=== PATIENT | male | born 1965 | race African-American/Black ===

== ENCOUNTER 2020-02-29 17:05 | Inpatient (IN) | payer OTHER, SELFPAY ==
--- NOTE | ~2020-02-29 | CT_ITS ---
EXAMINATION: CT abdomen pelvis w con EXAM DATE: 02/29/2020 18:23 INDICATION: Fever, left lower quadrant abdominal pain, nausea and diarrhea. TECHNIQUE: Spiral CT of the abdomen and pelvis was performed following intravenous injection of 100 m L Omnipaque 350. Axial, coronal and sagittal images were reviewed. The dose-length product (DLP) fo r this examination was 507.30 mGy-cm. The exposure was tailored according to patient size (auto mA e xposure control), and iterative reconstruction (ASIR) was used as additional dose reduction technique . There is no prior study for comparison. FINDINGS: There is moderate sigmoid diverticulosis. There is extensive perisigmoid inflammation and m oderate wall thickening. Also tiny foci of perisigmoid extraluminal gas (finding has been indicated o n axial image 140), microperforation. There is no organized abscess or gross free intraperitoneal gas . There is a flash filling hemangioma in the liver dome measuring 1.2 cm. Spleen, adrenal glands, pancr eas are unremarkable. Mildly distended but otherwise unremarkable gallbladder. There is no common bi le duct dilation. Portal and splenic veins are patent. Kidneys enhance symmetrically. There is no hydronephrosis. There is mild prostatomegaly. Diffuse bladder wall thickening and adjacent fat stra nding, could be reactive from the diverticulitis but check urinalysis to evaluate possibility of cyst itis. There is no retroperitoneal or pelvic lymphadenopathy. The appendix is normal. The stomach and small bowel are unremarkable. There is expected amount of c olonic stool. The heart is normal in size. There are no pericardial or pleural effusions. The lung bases are unremarkable. There are no osteoblastic or osteolytic lesions identified. IMPRESSION: 1. Acute sigmoid diverticulitis with microperforation. No abscess. Follow-up evaluation will be guicho cated to exclude underlying adenocarcinoma. 2. Pericystic inflammation, could be reactive or cystitis. Correlate with urinalysis. Reviewed, dictated and finalized at location A. IMPRESSION: 1. Acute sigmoid diverticulitis with microperforation. No abscess. Follow-up e valuation will be indicated to exclude underlying adenocarcinoma. 2. Pericystic inflammation, could be reactive or cystitis. Correlate with urin alysis.
--- NOTE | ~2020-02-29 | CT_ITS ---
EXAMINATION: CT abdomen pelvis w con DATE: 03/04/2020 14:06 INDICATION: Diverticulitis TECHNIQUE: Computed tomography (CT) of the abdomen and pelvis was performed with 100 mL Omnipaque-350 intravenous contrast. Automated exposure control and iterative reconstruction technique were employe d. The dose-length product was 594.12 mGy-cm. COMPARISON: 02/29/2020 FINDINGS: Very small bilateral posterior layering pleural effusions with mild dependent passive atelectasis in the lower lobes. Heart size is normal. No pericardial effusion. Liver, gallbladder, spleen, pancreas, bilateral adrenal glands and right kidney are normal. 2 cm left renal cyst. Considering is prominent wall thickening and from trace stranding surrounding the sigmoid colon where there are multiple dive rticula consistent with diverticulitis. There is some free intraperitoneal gas below the right hemidi aphragm as well as a large pocket of free intraperitoneal gas within the folds of the small bowel mes entery in the central abdomen. There are couple small gas and fluid collections in the right hemipelv is without a well-defined organized peripheral wall. The larger and more caudal measuring 3.4 x 1.9 c m and the smaller more cephalad collection measuring 2.9 x 1.5 cm. No bowel obstruction. Normal appen jaymie. No pathologically enlarged abdominal or pelvic lymphadenopathy. Moderate bilateral hip osteoarth ritis. IMPRESSION: 1. Perforated sigmoid diverticulitis with free intraperitoneal gas as well as a couple small gas and fluid collections without a well-defined organizing peterson in the right hemipelvis but concerning for progression towards abscesses. Reviewed, dictated and finalized at location A.
--- NOTE | ~2020-02-29 | XR_ITS ---
XR abdomen/kub 1V DATE: 03/01/2020 13:19 INDICATION: Abdominal pain. Fever. Diverticulitis. TECHNIQUE: AP projection, 2 views COMPARISON: 02/29/2020 CT abdomen pelvis FINDINGS: No evidence of bowel obstruction. The psoas shadows are intact. No visceromegaly. Included skeletal structures are unremarkable. IMPRESSION: Nonspecific abdomen Reviewed, dictated and finalized at Location [facility]. Reviewed, dictated and finalized at location A. IMPRESSION: Nonspecific abdomen
[2020-02-29 17:00] VITALS: BP 179/95; PULSE 86; RESP 17; TEMP 38.9; O2SAT 100
[2020-02-29 17:42] LABS: Basophils Percent Auto 0.2 % (0.2-1.2); Hematocrit 57.8 % (42.0-52.0); Hemoglobin 18.5 g/dL (14.0-18.0); Immature Granulocyte Absolute 0.07 K/mm3 (0.00-0.031); Immature Granulocyte Percent A 0.4 % (0-0.5); Lymphocytes Absolute Auto 0.44 K/mm3 (0.9-3.2); Lymphocytes Percent Auto 2.4 % (18.3-44.2); Mean Corpuscular Hemoglobin 29.7 pg (26-34); Mean Corpuscular Volume 92.8 fl (80-100); Mean Platelet Volume 11.4 fl (7.4-10.4); Monocytes Absolute Auto 0.3 K/mm3 (0.1-0.6); Monocytes Percent Auto 1.6 % (2.6-8.5); Neutrophils Absolute Auto 17.8 K/mm3 (1.3-6.7); Neutrophils Percent Auto 95.4 % (45.5-73.1); Platelet Count Result 183 k/mm3 (150-375); Red Blood Count 6.23 M/mm3 (4.6-6.20); Red Cell Distribution Width 13.3 % (11.5-14.5); White Blood Count 18.6 K/mm3 (4.5-10.0)
[2020-02-29 17:55] LABS: Add Urine Microscopic? YES; Alanine Aminotransferase 41 U/L (4-50); Alkaline Phosphatase 54 U/L (38-126); Appearance Urine Clear (Clear); Aspartate Amino Transferase 41 U/L (17-59); Bilirubin Urine Negative (Negative); Bilirubin,Total 1.1 mg/dL (0.2-1.3); Blood Urea Nitrogen 19 mg/dL (9-20); Blood Urine Negative (Negative); Calcium 9.7 mg/dL (8.4-10.2); Carbon Dioxide 30 mmol/L (22-30); Chloride 98 mmol/L (98-107); Color Urine Yellow (Yellow); Estimated CRCL calculation 59 ml/min; Estimated Glomerular Filt Rate > 60; Glucose 120 mg/dL (75-110); Glucose Urine UA Negative (Negative); Ketones Urine Trace mg/dL (Negative); Leukocyte Esterase Ur Negative LEU/UL (Negative); Lipase 99 U/L (23-300); Mucus Urine Heavy /lpf; Nitrate Urine Negative (Negative); Protein Urine 2+ mg/dL (Negative); RBC Urine 0-2 /hpf (0-2); Sodium 138 mmol/L (137-145); WBC Urine 0-3 /hpf
--- NOTE | 2020-02-29 18:08 | ED.ABDPAIN ---
HPI - Abdominal Pain General Chief Complaint: Abdominal Pain Stated Complaint: Abd Pain Time Seen by Provider: 02/29/20 18:01 History of Present Illness HPI narrative: Patient presents with his partner, for abdominal pain since 3 AM today. He is never had anything like this before. It is 10 out of 10. Started left lower quadrant goes across the pelvis. Some nausea, but no vomiting. Decreased stool, but no blood in the stool. Fever 102. He had his colonoscopy a year and a half ago and it came back normal, there was no diverticuli noted. He has had numerous orthopedic surgeries but no abdominal surgery. Related Data Home Medications Medication Instructions Recorded Confirmed celecoxib [Celebrex] mg 02/29/20 cetirizine [Zyrtec] 10 mg PO DAILY 02/29/20 felodipine 10 mg PO DAILY 02/29/20 montelukast [Singulair] 10 mg PO HS 02/29/20 multivit with min-folic acid mg PO 02/29/20 [Adult One Daily Multivitamin] tramadol [Ultram] 50 mg PO Q6H PRN MDD 1/2 pill - 10 02/29/20 mg Allergies Allergy/AdvReac Type Severity Reaction Status Date / Time No Known Allergies Allergy Verified 02/29/20 17:06 Review of Systems Review of Systems: Narrative: CONSTITUTIONAL: Denies sweats. EYES: Denies visual changes, redness, or discharge. ENT: Denies rhinorrhea, congestion, sore throat, or otalgia. CARDIOVASCULAR: Denies chest pain, palpitations, or edema. RESPIRATORY: Denies cough or dyspnea. GASTROINTESTINAL: Denies vomiting, or diarrhea. GENITOURINARY: Denies dysuria or hematuria. SKIN: Denies rash or itching. MUSCULOSKELETAL: Denies back pain, joint pain, or myalgia. NEUROLOGIC: Denies headache, numbness, or weakness. PSYCHIATRIC: Denies anxiety or depression. [facility] Surgical History Surgical History History of sinus surgery Family History Family History (Updated 01/24/17 @ 23:56 by DOCTOR UNKNOWN) Father Family history of lung cancer, Onset Age: 79 Patient's father is Mother Hypertension Family history of diabetes mellitus in first degree relative Social History Social History Smoking status: Former smoker Second hand tobacco smoke exposure: No Smoking end date: 10/20/90 Alcohol intake: current Gender identity (if verbalized by the patient): Male Exam Narrative: Exam Narrative: GENERAL: Well-appearing, well-nourished, and in no acute distress. HEAD: Normocephalic, atraumatic. EYES: PERRLA and EOMI. ENT: Nares clear, no rhinorrhea or epistaxis. Mucous membranes moist. NECK: Supple. CHEST: Clear to auscultation. No respiratory distress. HEART: Regular rate and rhythm. No murmur heard. Normal peripheral pulses. ABDOMEN: Soft, nondistended, normal active bowel sounds. Tenderness throughout. EXTREMITIES: Normal range of motion. No edema. SKIN: Warm, dry, no rash. NEURO: No focal deficits. Alert and oriented x3. PSYCH: Normal mood and affect. Const: General: no acute distress Orientation/consciousness: patient oriented x3 Course Reevaluation(s) Reevaluation #1: Went in the room to explain to the patient and his girlfriend about the diverticulitis. He is sound asleep from the Dilaudid, so I explained to her. Hopefully the antibiotics will heal it without surgery, but if there is any advancement of disease or rupture, a surgeon would be involved. She understands that she cannot visit because of COVID. Date: 02/29/20 Time: 19:47 Consultations Consultation #1: Call the general surgeon for a consult.Dr. Richter returned the call and will consult. Date: 02/29/20 Time: 19:09 Consultation #2: Call the hospitalist for admission. Dr. Perez called back and except. Date: 02/29/20 Time: 19:09 Vital Signs Vital signs: Vital Signs Temperature 102.0 F H 02/29/20 17:00 Pulse Rate 86 02/29/20 17:00 Respiratory Rate 17 02/29/20 17:00 Blood Pressure 179/95 H 02/29/20 17:00 Pulse Oximetry 100 02/29/20 17:00
[2020-02-29] MEDS: SODIUM CHLORIDE 0.9% IV 1,000 ML 999 ML IV CONT (18:29)
[2020-02-29 18:30] VITALS: BP 169/89; PULSE 79; RESP 19; O2SAT 98
[2020-02-29] MEDS: HYDROMORPHONE HCL 1 MG/ML INJ IV PUSH ×2 (18:30→21:30)
[2020-02-29 19:10] VITALS: BP 168/79; PULSE 97; RESP 18; O2SAT 97
--- NOTE | 2020-02-29 20:17 | PM.IMHP ---
H&P: HPI History of Present Illness Chief complaint: diverticulosis Narrative: This is a pleasant 54 year old male with known history of HTN who presented to the hospital with a complaint of diffuse abdominal pain that started since early this morning around 3 am. He reports that he last ate some nuts last night. Associated symptoms include fever to 102 degrees F, nausea, but no vomiting. He has not had any diarrhea or bloody stools. The patient was evaluated in the ER and found to have acute diverticulitis on CT abd/pelvis. This is the first time he has ever had diverticulitis. He denies any previous abdominal surgeries. His last colonoscopy was 1.5 years ago and did not demonstrate diverticular disease. Currently the patient's abdominal pain is improved w/ IV narcotic medications. ER provider has given the patient IV zosyn and consulted General Surgery. He has no other complaints. Review of Systems Review of Systems: All systems reviewed & are unremarkable except as noted in HPI and below PMFSH Past Medical History Medical History HTN (hypertension) with goal to be determined Surgical History Surgical History History of sinus surgery Family History Family History Father Family history of lung cancer, Onset Age: 79 Patient's father is Mother Family history of diabetes mellitus in first degree relative Hypertension Cerebrovascular accident Sibling Asthma Social History Social History Smoking packs per day: 3 Smoking cigarettes per day: 60.0 Years smoked: 10 Smoking pack-years: 30.00 Smoking status: Former smoker Second hand tobacco smoke exposure: Yes Smoking end date: 10/20/90 Alcohol intake: current Drinks per week: 28 Alcohol use details: Every other day+ Substance use: current Substance use type: marijuana Other substance usage details: uses marijuana once a week Gender identity (if verbalized by the patient): Male Spiritual care concerns: No Meds Home Medications and Allergies Home Medications Medication Instructions Recorded Confirmed Type albuterol sulfate 2 puff INHALATION DAILY PRN 02/29/20 02/29/20 History celecoxib [Celebrex] 200 mg PO HS 02/29/20 02/29/20 History cetirizine [Zyrtec] 10 mg PO HS 02/29/20 02/29/20 History felodipine 10 mg PO DAILY 02/29/20 02/29/20 History montelukast [Singulair] 10 mg PO HS 02/29/20 02/29/20 History multivit with min-folic acid 0.4 mg PO DAILY 02/29/20 02/29/20 History [Adult One Daily Multivitamin] tramadol [Ultram] 25 mg PO HS PRN 02/29/20 02/29/20 History Allergies Allergy/AdvReac Type Severity Reaction Status Date / Time No Known Allergies Allergy Verified 02/29/20 17:06 Vital Signs Vital Signs - 24 hr 02/29/20 17:00 02/29/20 18:30 02/29/20 19:10 Temperature 38.9 C H Pulse Rate 86 79 97 Respiratory Rate 17 19 18 Blood Pressure 179/95 H 169/89 H 168/79 H Pulse Oximetry 100 98 97 Exam Const: General: cooperative, alert, awake, acute distress moderate, ill appearing and other (Febrile to touch++ ) Nutritional Appearance: well nourished Orientation/consciousness: patient oriented x3 HENMT: Head: normal to inspection General nose exam: Normal external nose present Face and sinus: normal facial exam Mouth: Yes Normal oral and palatal mucosa present and Yes oropharynx normal Eyes: Pupils: Equal, round and reactive pupils present EOM: EOMs intact bilaterally Neck: Neck: supple and no JVD Thyroid: thyroid normal Lymphatic: lymphadenopathy not noted Resp: Effort & Inspection: normal respiratory effort Auscultation: clear to auscultation bilaterally Cardio: Rate: regular rate Rhythm: regular rhythm Heart sounds: no murmurs GI: Inspection: normal t
[2020-02-29 20:42] VITALS: BP 118/71; PULSE 85; RESP 18; O2SAT 95
[2020-02-29 20:55] VITALS: BP 151/76; PULSE 86; RESP 22; TEMP 37.4; O2SAT 98
--- NOTE | 2020-02-29 21:00 | ADMGEN ---
This patient, Cate Carrington, was admitted to Medical Room 340-01. Patient/family oriented to hospital policies and general routines including ID bracelet, bed and alarms, visiting hours, pain management, procedures, bathroom and other care routines, personal items, smoking policy, room service/diet, and visiting hours. Valuables list has been completed. Information on how to activate the Rapid Response Team has been discussed. Patient/Family are encouraged to report perceived risks to care and to ask questions if they do not understand what they are told or what they should do.
[2020-02-29] MEDS: DEXTROSE 5%/0.9% SOD CHL 1,000 ML 100 ML IV CONT (21:12)
[2020-02-29 21:42] VITALS: BMI 27.8
--- NOTE | 2020-02-29 22:43 | PCRCNOTE ---
02-29-2020 @ 22:38 Pt asked if he brought in his own cpap. PT stated he didn't and he didn't want one. PT said it puts too much air in his stomach and don't feel good.
[2020-03-01 00:43] VITALS: BP 137/74; PULSE 85; RESP 18; TEMP 36.8; O2SAT 95
[2020-03-01] MEDS: HYDROMORPHONE HCL 1 MG/ML INJ IV PUSH ×8 (01:19→23:06)
[2020-03-01 05:10] VITALS: BP 145/78; PULSE 84; RESP 16; TEMP 36.2; O2SAT 93
[2020-03-01 05:28] LABS: Blood Urea Nitrogen 16 mg/dL (9-20); Calcium 8.4 mg/dL (8.4-10.2); Carbon Dioxide 27 mmol/L (22-30); Chloride 103 mmol/L (98-107); Estimated CRCL calculation 64 ml/min; Estimated Glomerular Filt Rate > 60; Glucose 128 mg/dL (75-110); Sodium 136 mmol/L (137-145)
[2020-03-01 05:39] LABS: Basophils Absolute Auto 0.1 K/mm3 (0.0-0.1); Basophils Percent Auto 0.2 % (0.2-1.2); Hematocrit 51.1 % (42.0-52.0); Hemoglobin 16.6 g/dL (14.0-18.0); Immature Granulocyte Absolute 0.17 K/mm3 (0.00-0.031); Immature Granulocyte Percent A 0.8 % (0-0.5); Lymphocytes Absolute Auto 1.11 K/mm3 (0.9-3.2); Lymphocytes Percent Auto 5.2 % (18.3-44.2); Mean Corpuscular HGB Conc 32.5 g/dl (32-36); Mean Corpuscular Hemoglobin 29.3 pg (26-34); Mean Corpuscular Volume 90.3 fl (80-100); Mean Platelet Volume 11.4 fl (7.4-10.4); Monocytes Absolute Auto 0.5 K/mm3 (0.1-0.6); Monocytes Percent Auto 2.3 % (2.6-8.5); Neutrophils Absolute Auto 19.5 K/mm3 (1.3-6.7); Neutrophils Percent Auto 91.5 % (45.5-73.1); Platelet Count Result 179 k/mm3 (150-375); Red Blood Count 5.66 M/mm3 (4.6-6.20); Red Cell Distribution Width 12.9 % (11.5-14.5); White Blood Count 21.4 K/mm3 (4.5-10.0)
[2020-03-01] MEDS: DEXTROSE 5%/0.9% SOD CHL 1,000 ML 100 ML IV CONT ×2 (08:08→18:22)
[2020-03-01] MEDS: HYDROMORPHONE HCL 1 MG/ML INJ 0.5 MG IV PUSH (09:03)
--- NOTE | 2020-03-01 12:08 | PM.CNGS ---
Assessment and Plan Assessment and plan (1) Diverticulitis of intestine with perforation without abscess: Code(s): K57.80 - Diverticulitis of intestine, part unspecified, with perforation and abscess without bleeding Status: Acute Assessment and Plan: CT scan reviewed and discussed with the patient in detail. He has evidence of acute sigmoid diverticulitis with microperforation. This is his first episode of diverticulitis. During my evaluation, the patient is still having a significant amount of abdominal pain and his white blood cell count has gone up to 21,000 today. I adjusted his pain medication to hopefully help with pain control and will order a stat KUB. Would continue the IV antibiotics, IV fluids, and bowel rest. I discussed the disease process with the patient and the treatment plan at this point. I discussed with the patient that if he develops more intra-abdominal free air or continues to worsen with current treatment, then he may require more urgent surgical intervention, which would include a colectomy with a higher probability of an ostomy. If he improves with current treatment, then we would continue to try and treat him conservatively to allow this acute episode to resolve. We will continue to follow the patient with serial abdominal exams, labs, and imaging as needed. Thank you for allowing me to see the patient in consultation and we will continue to follow along with you. (2) HTN (hypertension) with goal to be determined: Code(s): I10 - Essential (primary) hypertension Status: Chronic Additional Plan Discussed the patient's case and formulated the plan of care with Dr. Richter. History of Present Illness Consult details Consult date: 03/01/20 Reason for consult: other (Acute sigmiod diverticulitis with microperforation) Requesting physician: Ce Garay MD Narrative: This is a 54-year-old male with a history of hypertension, who presented the emergency department with complaints of abdominal pain and fever. The patient reports he woke up from sleep around 3:00 am yesterday morning with generalized abdominal pain. He does report his pain was mostly located in the lower abdomen but feels there is pain all over. He reports the pain was persistent and unrelenting through the day. Also reports a subjective fever. Due to the persistent pain, he decided to present to the emergency department for further evaluation. CT scan of the abdomen and pelvis showed acute sigmoid diverticulitis with microperforation and no evidence of an abscess. Labs in the ED showed a white blood cell count of 18,600. He was febrile last night around 1700 but afebrile since. The patient was admitted to the Hospitalist service and started on IV antibiotics, IV fluids, analgesics, and made NPO. Our service was consulted for the findings of diverticulitis with perforation. The patient is now being seen on the medical floor. He reports having persistent abdominal pain since admission and rating it at an 8/10 on a pain scale at this time. Reports having intermittent nausea that he associates with hunger, but no vomiting. Reports he has been constipated since Friday, when he had a small loose bowel movement. Denies any bloody or black stools. Reports passing gas yesterday, but denies any flatus today. No other complaints at this time. Denies a history of diverticulitis. Reports having a Colonoscopy by Dr. Peterson in 2017 with findings of benign colon polyps and internal hemorrhoids. Reports a history of colorectal cancer in his mother. Review of Systems Constitutional: Constitutional: Reports as per HPI, Reports chills, Denies excessive sweating, Denies fatigue, Reports fever(s), Denies headache(s) and Denies weakness Eyes: Eyes: Denies change in vision and Denies loss of vision ENT: Reports Normal hearing present, Denies dizziness and Denies headache(s) Cardiovascular: Cardiovascular: Denies chest pain, Denies syncope, Denies leg luh
--- NOTE | 2020-03-01 12:20 | PM.IMPN ---
Progress Note: A&P Assessment and Plan (1) Diverticulitis: Code(s): K57.92 - Diverticulitis of intestine, part unspecified, without perforation or abscess without bleeding Status: Acute Assessment and Plan: -----CT images and symptoms are consistent with diverticulitis. The patient has had fevers and chills so I will go ahead and put in for some blood cultures although he has already had IV antibiotics. The patient denies any history of constipation but did have some diverticular disease seen on a colonoscopy in the past. Will continue Zosyn at this time. CT shows micro perforation. Surgery on board. Appreciate their additional recommendations. For now, continue NPO status. (2) HTN (hypertension) with goal to be determined: Code(s): I10 - Essential (primary) hypertension Status: Chronic Assessment and Plan: -----last blood pressure 145/78. Likely elevated due to pain. I do not see any history of blood pressure medications. I'll ask him about this. For now will do p.r.n. hydralazine for systolic greater than 175. (3) Leukocytosis: Qualifiers: Leukocytosis type: unspecified Qualified Code(s): D72.829 - Elevated white blood cell count, unspecified Code(s): D72.829 - Elevated white blood cell count, unspecified Status: Acute Assessment and Plan: -----d/t above. Will monitor daily. Additional Plan Date of service was 02/29/2020 at 7:30 pm. Time Spent With Patient Time with patient: 25 - 35 minutes Subjective Date/time seen: 03/01/20 12:20 Interval history: Pt is a 54-year-old male here for diverticulitis. Patient was seen today and states his pain is not getting any better. He says that is currently 8/10 pain in the lower quadrants of the abdomen. He has had some nausea but is overall doing okay. He also mentions that he has had chills on and off. He denies vomiting, diarrhea, constipation, chest pain or shortness of breath. Review of Systems Review of Systems: All systems reviewed & are unremarkable except as noted in HPI and below Exam Narrative: Exam Narrative: General: Well developed well nourished patient resting comfortably in bed in no acute distress HEENT: normocephalic Neck: supple Neuro: Alert and oriented x4 CV:RRR Resp:CTA Abd: Soft, partially distended. Significant pain especially in the right lower quadrant. Positive bowel sounds Extremities: No swelling, erythema, or pain to palpation. Objective Data Vital Signs Vital Signs: Vital Signs - 24 hr 02/29/20 17:00 02/29/20 18:30 02/29/20 19:10 Temperature 102.0 F H Pulse Rate 86 79 97 Respiratory Rate 17 19 18 Blood Pressure 179/95 H 169/89 H 168/79 H Pulse Oximetry 100 98 97 02/29/20 20:42 02/29/20 20:55 03/01/20 00:43 Temperature 99.4 F 98.3 F Pulse Rate 85 86 85 Respiratory Rate 18 22 H 18 Blood Pressure 118/71 151/76 H 137/74 Pulse Oximetry 95 98 95 03/01/20 05:10 Temperature 97.2 F L Pulse Rate 84 Respiratory Rate 16 Blood Pressure 145/78 H Pulse Oximetry 93 Intake/Output Intake/Output: Intake & Output 02/27/20 02/28/20 02/29/20 03/01/20 23:59 23:59 23:59 23:59 Intake Total 1100 1150 Output Total 1000 Balance 1100 150 Meds/Results Medications: Active Medications Generic Name Dose Route Start Last Admin Trade Name Freq PRN Reason Stop Dose Admin Albuterol 2 puff 03/01/20 12:20 Proventil Hfa INHALATION DAILY PRN Shortness Of Breath Or Wheezing Hydromorphone HCl 0.5 mg 03/01/20 09:17 Dilaudid Inj IV PUSH Q2H PRN Pain Rated 4-6 Hydromorphone HCl 1 mg 03/01/20 09:17 03/01/20 12:13 Dilaudid Inj IV PUSH 1 mg Q2H PRN Administration Pain Rated 7-10 Dextrose/Sodium Chloride 1,000 mls @ 100 mls/hr 02/29/20 19:25 03/01/20 08:08 Dextrose 5% Sodium Chloride 0.9% IV CONT 100 mls/hr .Q10H SONIYA Administration Piperacillin/Tazobactam/Dextrose 3.375 gm
[2020-03-01 14:00] VITALS: BP 128/74; PULSE 70; RESP 22; TEMP 36.2; O2SAT 100
[2020-03-01] MEDS: IBUPROFEN IV 800 MG/200 ML 800 MG/200 ML BAG 400 MG IVPB (20:14)
[2020-03-01 21:06] VITALS: BP 137/82; PULSE 75; RESP 14; TEMP 36.3; O2SAT 97
[2020-03-02] MEDS: HYDROMORPHONE HCL 1 MG/ML INJ IV PUSH ×5 (01:08→23:16)
[2020-03-02] MEDS: IBUPROFEN IV 800 MG/200 ML 800 MG/200 ML BAG 400 MG IVPB ×4 (03:57→21:52)
[2020-03-02 06:00] VITALS: BP 140/79; PULSE 68; RESP 20; TEMP 36.3; O2SAT 98
[2020-03-02 06:29] LABS: Basophils Percent Auto 0.2 % (0.2-1.2); Eosinophils Absolute Auto 0.1 K/mm3 (0-0.3); Eosinophils Percent Auto 0.5 % (0-4.4); Hematocrit 51.5 % (42.0-52.0); Hemoglobin 16.8 g/dL (14.0-18.0); Immature Granulocyte Absolute 0.07 K/mm3 (0.00-0.031); Immature Granulocyte Percent A 0.5 % (0-0.5); Mean Corpuscular HGB Conc 32.6 g/dl (32-36); Mean Platelet Volume 11.7 fl (7.4-10.4); Monocytes Absolute Auto 0.3 K/mm3 (0.1-0.6); Monocytes Percent Auto 2.2 % (2.6-8.5); Neutrophils Absolute Auto 12.4 K/mm3 (1.3-6.7); Neutrophils Percent Auto 93.6 % (45.5-73.1); Platelet Count Result 149 k/mm3 (150-375); Red Cell Distribution Width 13.1 % (11.5-14.5); White Blood Count 13.2 K/mm3 (4.5-10.0)
[2020-03-02] MEDS: DEXTROSE 5%/0.9% SOD CHL 1,000 ML 100 ML IV CONT ×2 (06:36→17:57)
[2020-03-02 06:45] LABS: Blood Urea Nitrogen 12 mg/dL (9-20); Calcium 8.7 mg/dL (8.4-10.2); Carbon Dioxide 29 mmol/L (22-30); Chloride 101 mmol/L (98-107); Estimated CRCL calculation 69 ml/min; Estimated Glomerular Filt Rate > 60; Glucose 107 mg/dL (75-110); Potassium 3.7 mmol/L (3.4-5.0); Sodium 136 mmol/L (137-145)
--- NOTE | 2020-03-02 09:18 | PM.PNGS ---
Progress Note: A&P Assessment and Plan (1) Diverticulitis of intestine with perforation without abscess: Code(s): K57.80 - Diverticulitis of intestine, part unspecified, with perforation and abscess without bleeding Status: Acute Assessment and Plan: WBC improved today. Still having quite a bit of pain but afebrile and not tachycardic. Discussed giving this more time to allow pain to improve. If WBC rises or pain is not improving, will get a repeat CT tomorrow. Would hold off on any clears until pain is mostly subsided, could try ice chips if he wants. Subjective Subjective Date/Time Seen: 03/02/20 09:18 Patient says that pain was worse last night. Feeling some chills. Passing flatus. No fevers. No nausea or vomiting. Exam GI: Inspection: distended GI Palp: Yes Soft to palpation, Yes Tenderness to palpation present (GI) (LLQ), No Guarding due to palpation present (GI) and No Rebound tenderness present Objective Data Vital Signs Vital Signs: Vital Signs - 24 hr 03/01/20 14:00 03/01/20 21:06 03/02/20 06:00 Temperature 36.2 C L 36.3 C L 36.3 C L Pulse Rate 70 75 68 Respiratory Rate 22 H 14 20 Blood Pressure 128/74 137/82 140/79 Pulse Oximetry 100 97 98 Intake/Output Intake/Output: Intake & Output 02/28/20 02/29/20 03/01/20 03/02/20 23:59 23:59 23:59 23:59 Intake Total 1100 2650 1400 Output Total 1400 200 Balance 1100 1250 1200 Meds/Results Medications: Active Medications Generic Name Dose Route Start Last Admin Trade Name Freq PRN Reason Stop Dose Admin Albuterol 2 puff 03/01/20 12:20 Proventil Hfa INHALATION DAILY PRN Shortness Of Breath Or Wheezing Hydralazine HCl 10 mg 03/01/20 12:25 Apresoline Hcl Inj IV PUSH Q8H PRN systolic >175 Hydromorphone HCl 0.5 mg 03/01/20 09:17 Dilaudid Inj IV PUSH Q2H PRN Pain Rated 4-6 Hydromorphone HCl 1 mg 03/01/20 09:17 03/02/20 06:02 Dilaudid Inj IV PUSH 1 mg Q2H PRN Administration Pain Rated 7-10 Dextrose/Sodium Chloride 1,000 mls @ 100 mls/hr 02/29/20 19:25 03/02/20 06:36 Dextrose 5% Sodium Chloride 0.9% IV CONT 100 mls/hr .Q10H SONIYA Administration Piperacillin/Tazobactam/Dextrose 3.375 gm in 50 mls @ 100 mls/hr 03/01/20 00:00 03/02/20 06:35 Zosyn 3.375 Gm/D5w 50ml Pm IVPB Infused Q6H SONIYA Infusion Acetaminophen 1,000 mg in 100 mls @ 400 mls/hr 03/01/20 18:00 03/02/20 05:48 Ofirmev 1,000 Mg Ivpb IVPB 03/02/20 18:01 Infused Q6H SONIYA Infusion Ibuprofen 800 mg in 200 mls @ 400 mls/hr 03/01/20 21:00 03/02/20 09:01 Caldolor 800 Mg/200 Ml IVPB 03/03/20 03:29 400 mls/hr Q6H SONIYA Administration Radiology Results: ITS Impressions Abdomen/Pelvis CT 02/29/20 18:31 IMPRESSION: 1. Acute sigmoid diverticulitis with microperforation. No abscess. Follow-up evaluation will be indicated to exclude underlying adenocarcinoma. 2. Pericystic inflammation, could be reactive or cystitis. Correlate with urinalysis. Abdomen X-Ray 03/01/20 13:20 IMPRESSION: Nonspecific abdomen Labs Labs: Laboratory Results - last 24 hr 03/02/20 03/02/20 05:27 05:27 WBC 13.2 H RBC 5.60 Hgb 16.8 Hct 51.5 MCV 92.0 MCH 30.0 MCHC 32.6 RDW 13.1 Plt Count 149 L MPV 11.7 H Immature Gran % (Auto) 0.5 Neut % (Auto) 93.6 H Lymph % (Auto) 3.0 L [place] % (Auto) 2.2 L Eos % (Auto) 0.5 Baso % (Auto) 0.2 Lymph # (Auto) 0.40 L [place] # (Auto) 0.3 Eos # (Auto) 0.1 Baso # (Auto) 0.0 Abs Immat Gran (auto) 0.07 H Absolute Neuts (auto) 12.4 H Absolute Nucleated RBC 0.0 Nucleated RBC % 0.0 Sodium 136 L Potassium 3.7 Chloride 101 Carbon Dioxide 29 BUN 12 Creatinine 1.10 Estim Creat Clear Calc 69 Estimated GFR > 60 Glucose 107 Calcium 8.7 Quality VTE Prophylaxis VTE prophylaxis: mechanical ordered
--- NOTE | 2020-03-02 10:00 | PM.IMPN ---
Progress Note: A&P Assessment and Plan (1) Diverticulitis: Code(s): K57.92 - Diverticulitis of intestine, part unspecified, without perforation or abscess without bleeding Status: Acute Assessment and Plan: -----CT images and symptoms are consistent with diverticulitis. His white count is trending down now 13.2. He described intermittent chills and night sweats before coming in which are still occurring occasionally. Blood cultures have been drawn but were drawn after the antibiotics were started. These are still pending. The patient denies any history of constipation but did have some diverticular disease seen on a colonoscopy in the past. Will continue Zosyn at this time. CT shows micro perforation. Surgery on board. Appreciate their additional recommendations. For now, continue NPO status. (2) HTN (hypertension) with goal to be determined: Code(s): I10 - Essential (primary) hypertension Status: Chronic Assessment and Plan: -----last blood pressure 140/79. Patient states he is usually much higher than that and takes felodipine. This is non formulary so I will start Norvasc. (3) Leukocytosis: Qualifiers: Leukocytosis type: unspecified Qualified Code(s): D72.829 - Elevated white blood cell count, unspecified Code(s): D72.829 - Elevated white blood cell count, unspecified Status: Acute Assessment and Plan: -----d/t above. Will monitor daily. Additional Plan m. Subjective Date/time seen: 03/02/20 10:00 Interval history: Pt is a 54-year-old male here for diverticulitis. Patient was seen today and states he had severe abdominal pain overnight 10. He said this started when he went up to urinate and was constant. This morning it has improved and is currently a 7/10. It now hurts worse in the left lower quadrant feels like a stabbing pain. He still has intermittent chills and is having some night sweats occasionally. The patient has not had a bowel movement or any nausea or vomiting. He denies chest pain, shortness of breath, or fevers. Exam Narrative: Exam Narrative: General: Well developed well nourished patient resting comfortably in bed in no acute distress HEENT: normocephalic Neck: supple Neuro: Alert and oriented x4 CV:RRR Resp:CTA Abd: Soft, partially distended. Significant pain especially in the left lower quadrant today. Positive bowel sounds Extremities: No swelling, erythema, or pain to palpation. Objective Data Vital Signs Vital Signs: Vital Signs - 24 hr 03/01/20 14:00 03/01/20 21:06 03/02/20 06:00 Temperature 97.2 F L 97.3 F L 97.3 F L Pulse Rate 70 75 68 Respiratory Rate 22 H 14 20 Blood Pressure 128/74 137/82 140/79 Pulse Oximetry 100 97 98 Intake/Output Intake/Output: Intake & Output 02/28/20 02/29/20 03/01/20 03/02/20 23:59 23:59 23:59 23:59 Intake Total 1100 2650 1400 Output Total 1400 200 Balance 1100 1250 1200 Meds/Results Medications: Active Medications Generic Name Dose Route Start Last Admin Trade Name Freq PRN Reason Stop Dose Admin Albuterol 2 puff 03/01/20 12:20 Proventil Hfa INHALATION DAILY PRN Shortness Of Breath Or Wheezing Hydralazine HCl 10 mg 03/01/20 12:25 Apresoline Hcl Inj IV PUSH Q8H PRN systolic >175 Hydromorphone HCl 0.5 mg 03/01/20 09:17 Dilaudid Inj IV PUSH Q2H PRN Pain Rated 4-6 Hydromorphone HCl 1 mg 03/01/20 09:17 03/02/20 06:02 Dilaudid Inj IV PUSH 1 mg Q2H PRN Administration Pain Rated 7-10 Dextrose/Sodium Chloride 1,000 mls @ 100 mls/hr 02/29/20 19:25 03/02/20 06:36 Dextrose 5% Sodium Chloride 0.9% IV CONT 100 mls/hr .Q10H SONIYA Administration Piperacillin/Tazobactam/Dextrose 3.375 gm in 50 mls @ 100 mls/hr 03/01/20 00:00 03/02/20 06:35 Zosyn 3.375 Gm/D5w 50ml Pm IVPB Infused Q6H SONIYA Infusion Acetaminophen 1,000 mg in 100 mls @ 400 mls/hr 03/01
[2020-03-02 14:00] VITALS: BP 136/84; PULSE 70; RESP 18; TEMP 36.4; O2SAT 97
[2020-03-02] MEDS: ONDANSETRON INJ 4 MG/2 ML VIAL IV PUSH (18:12)
[2020-03-02 19:23] VITALS: BP 128/74; PULSE 72; RESP 18; TEMP 37.1; O2SAT 93
[2020-03-03] MEDS: IBUPROFEN IV 800 MG/200 ML 800 MG/200 ML BAG 400 MG IVPB (03:55)
[2020-03-03 05:59] VITALS: BP 134/75; PULSE 72; RESP 18; TEMP 36.5; O2SAT 93
[2020-03-03 06:35] LABS: Hematocrit 48.9 % (42.0-52.0); Hemoglobin 15.8 g/dL (14.0-18.0); Mean Corpuscular HGB Conc 32.3 g/dl (32-36); Mean Corpuscular Hemoglobin 29.4 pg (26-34); Mean Corpuscular Volume 91.1 fl (80-100); Platelet Count Result 155 k/mm3 (150-375); Red Blood Count 5.37 M/mm3 (4.6-6.20); White Blood Count 13.3 K/mm3 (4.5-10.0)
[2020-03-03] MEDS: DEXTROSE 5%/0.9% SOD CHL 1,000 ML 100 ML IV CONT (06:45)
[2020-03-03 06:50] LABS: Blood Urea Nitrogen 12 mg/dL (9-20); Calcium 8.4 mg/dL (8.4-10.2); Carbon Dioxide 28 mmol/L (22-30); Chloride 103 mmol/L (98-107); Estimated CRCL calculation 64 ml/min; Estimated Glomerular Filt Rate > 60; Glucose 111 mg/dL (75-110); Potassium 3.4 mmol/L (3.4-5.0); Sodium 137 mmol/L (137-145)
[2020-03-03] MEDS: AMLODIPINE BESYLATE 5 MG TABLET 10 MG PO (09:34)
[2020-03-03 09:35] VITALS: PULSE 72; RESP 18; O2SAT 94
--- NOTE | 2020-03-03 09:45 | PM.IMPN ---
Progress Note: A&P Assessment and Plan (1) Diverticulitis: Code(s): K57.92 - Diverticulitis of intestine, part unspecified, without perforation or abscess without bleeding Status: Acute Assessment and Plan: -----improving. Will start clear liquids. Patient is having a little bit of diarrhea which could be due to the antibiotics, less likely C diff. White blood cell count plateaued, expected to continue to improve with IV antibiotics. CT images and symptoms are consistent with diverticulitis. He described intermittent chills and night sweats before coming in which are still occurring occasionally. Blood cultures have been drawn but were drawn after the antibiotics were started but they are negative so far. The patient denies any history of constipation but did have some diverticular disease seen on a colonoscopy in the past. Will continue Zosyn at this time. CT shows micro perforation. Surgery on board. Appreciate their additional recommendations. (2) HTN (hypertension) with goal to be determined: Code(s): I10 - Essential (primary) hypertension Status: Chronic Assessment and Plan: -----last blood pressure 134/75. Patient states he is usually much higher than that and takes felodipine. This is non formulary so continue Norvasc. IV fluids have been stopped since the patient is starting a oral diet and appears euvolemic. (3) Leukocytosis: Qualifiers: Leukocytosis type: unspecified Qualified Code(s): D72.829 - Elevated white blood cell count, unspecified Code(s): D72.829 - Elevated white blood cell count, unspecified Status: Acute Assessment and Plan: -----d/t above. Will monitor daily. Subjective Date/time seen: 03/03/20 09:45 Interval history: Pt is a 54-year-old male here for diverticulitis. Patient was seen today and states he is doing much better than yesterday. He says his pain is maybe a 4/10. He said he is finally feeling relief that he has not felt and multiple days. He has had 1 solid bowel movement and 2 additional diarrhea bowel movements without any blood. He has not tried any ice chips yet. He did vomit yesterday but is feeling better today. He said he would be interested in trying clear liquids. He has been up walking around the room without any issues. He denies chest pain, shortness of breath, worsening abdominal distension, or leg swelling. Exam Narrative: Exam Narrative: General: Well developed well nourished patient ambulating around the room in no acute distress HEENT: normocephalic Neck: supple Neuro: Alert and oriented x4 CV:RRR Resp:CTA Abd: Soft, partially distended. No pain to light palpation to the abdomen. Some pain to deep palpation in the left lower quadrant. Positive bowel sounds Extremities: No swelling, erythema, or pain to palpation. Objective Data Vital Signs Vital Signs: Vital Signs - 24 hr 03/02/20 14:00 03/02/20 19:23 03/03/20 05:59 Temperature 97.6 F 98.7 F 97.7 F Pulse Rate 70 72 72 Respiratory Rate 18 18 18 Blood Pressure 136/84 128/74 134/75 Pulse Oximetry 97 93 93 Intake/Output Intake/Output: Intake & Output 02/29/20 03/01/20 03/02/20 03/03/20 23:59 23:59 23:59 23:59 Intake Total 1100 2650 3350 1250 Output Total 1400 720 250 Balance 1100 1250 2630 1000 Meds/Results Medications: Active Medications Generic Name Dose Route Start Last Admin Trade Name Freq PRN Reason Stop Dose Admin Albuterol 2 puff 03/01/20 12:20 Proventil Hfa INHALATION DAILY PRN Shortness Of Breath Or Wheezing Amlodipine Besylate 10 mg 03/03/20 09:00 03/03/20 09:34 Norvasc PO 10 mg QAM SONIYA Administration Hydralazine HCl 10 mg 03/01/20 12:25 Apresoline Hcl Inj IV PUSH Q8H PRN systolic >175 Hydromorphone HCl 0.5 mg 03/01/20 09:17 Dilaudid Inj IV PUSH Q2H PRN Pain Rated 4-6 Hydromorphone HCl 1 mg 03/01/20 09:17
[2020-03-03] MEDS: ONDANSETRON INJ 4 MG/2 ML VIAL IV PUSH (10:03)
[2020-03-03] MEDS: HYDROMORPHONE HCL 1 MG/ML INJ 0.5 MG IV PUSH ×2 (10:04→21:21)
[2020-03-03 14:00] VITALS: BP 118/69; PULSE 94; RESP 20; TEMP 38.2; O2SAT 93
--- NOTE | 2020-03-03 14:19 | PM.PNGS ---
Progress Note: A&P Assessment and Plan (1) Diverticulitis of intestine with perforation without abscess: Code(s): K57.80 - Diverticulitis of intestine, part unspecified, with perforation and abscess without bleeding Status: Acute Assessment and Plan: Continue IV Zosyn. WBC about the same, continue to monitor. Repeat CT if pain worsening or WBC goes up. Subjective Subjective Date/Time Seen: 03/03/20 14:19 Pain has been improving. He says the pain was doing a lot better, but he does feel a little more pain after having some clears. No fevers. Exam GI: Inspection: distended GI Palp: Yes Tenderness to palpation present (GI) (suprapubic and LLQ), Yes Guarding due to palpation present (GI) (suprapubic) and No Rebound tenderness present Auscultation: normal bowel sounds Other: mildly disteded, guarding in suprapubic area but nowhere else Objective Data Vital Signs Vital Signs: Vital Signs - 24 hr 03/02/20 19:23 03/03/20 05:59 Temperature 37.1 C 36.5 C Pulse Rate 72 72 Respiratory Rate 18 18 Blood Pressure 128/74 134/75 Pulse Oximetry 93 93 Intake/Output Intake/Output: Intake & Output 02/29/20 03/01/20 03/02/20 03/03/20 23:59 23:59 23:59 23:59 Intake Total 1100 2650 3350 1532 Output Total 1400 720 250 Balance 1100 1250 2630 1282 Meds/Results Medications: Active Medications Generic Name Dose Route Start Last Admin Trade Name Freq PRN Reason Stop Dose Admin Albuterol 2 puff 03/01/20 12:20 Proventil Hfa INHALATION DAILY PRN Shortness Of Breath Or Wheezing Amlodipine Besylate 10 mg 03/03/20 09:00 03/03/20 09:34 Norvasc PO 10 mg QAM SONIYA Administration Hydralazine HCl 10 mg 03/01/20 12:25 Apresoline Hcl Inj IV PUSH Q8H PRN systolic >175 Hydromorphone HCl 0.5 mg 03/01/20 09:17 03/03/20 10:04 Dilaudid Inj IV PUSH 0.5 mg Q2H PRN Administration Pain Rated 4-6 Hydromorphone HCl 1 mg 03/01/20 09:17 03/02/20 23:16 Dilaudid Inj IV PUSH 1 mg Q2H PRN Administration Pain Rated 7-10 Piperacillin/Tazobactam/Dextrose 3.375 gm in 50 mls @ 100 mls/hr 03/01/20 00:00 03/03/20 11:26 Zosyn 3.375 Gm/D5w 50ml Pm IVPB 100 mls/hr Q6H SONIYA Administration Ondansetron HCl 4 mg 03/02/20 18:05 03/03/20 10:03 Zofran Inj IV PUSH 4 mg Q6H PRN Administration Nausea And Vomiting Radiology Results: ITS Impressions Abdomen/Pelvis CT 02/29/20 18:31 IMPRESSION: 1. Acute sigmoid diverticulitis with microperforation. No abscess. Follow-up evaluation will be indicated to exclude underlying adenocarcinoma. 2. Pericystic inflammation, could be reactive or cystitis. Correlate with urinalysis. Abdomen X-Ray 03/01/20 13:20 IMPRESSION: Nonspecific abdomen Labs Labs: Laboratory Results - last 24 hr 03/03/20 03/03/20 06:06 06:06 WBC 13.3 H RBC 5.37 Hgb 15.8 Hct 48.9 MCV 91.1 MCH 29.4 MCHC 32.3 RDW 13.0 Plt Count 155 MPV 11.0 H Sodium 137 Potassium 3.4 Chloride 103 Carbon Dioxide 28 BUN 12 Creatinine 1.20 Estim Creat Clear Calc 64 Estimated GFR > 60 Glucose 111 H Calcium 8.4 Quality VTE Prophylaxis VTE prophylaxis: mechanical ordered
[2020-03-03] MEDS: ACETAMINOPHEN 500 MG TABLET 1000 MG PO ×2 (14:56→21:14)
[2020-03-03] MEDS: HYDROMORPHONE HCL 1 MG/ML INJ IV PUSH (15:00)
[2020-03-03 19:47] VITALS: BP 140/68; PULSE 76; RESP 18; TEMP 37.2; O2SAT 97
[2020-03-04] MEDS: LORATADINE 10 MG TABLET PO ×2 (00:07→21:40)
[2020-03-04] MEDS: HYDROMORPHONE HCL 1 MG/ML INJ 0.5 MG IV PUSH (00:07)
[2020-03-04] MEDS: MONTELUKAST SODIUM 10 MG TABLET PO ×2 (00:07→21:40)
[2020-03-04 06:00] VITALS: BP 143/76; PULSE 97; RESP 18; TEMP 36.8; O2SAT 92
[2020-03-04 06:19] LABS: Hematocrit 48.1 % (42.0-52.0); Hemoglobin 15.8 g/dL (14.0-18.0); Mean Corpuscular HGB Conc 32.8 g/dl (32-36); Mean Corpuscular Hemoglobin 29.5 pg (26-34); Mean Corpuscular Volume 89.7 fl (80-100); Mean Platelet Volume 11.1 fl (7.4-10.4); Platelet Count Result 193 k/mm3 (150-375); Red Blood Count 5.36 M/mm3 (4.6-6.20); Red Cell Distribution Width 12.9 % (11.5-14.5); White Blood Count 14.1 K/mm3 (4.5-10.0)
[2020-03-04 06:42] LABS: Blood Urea Nitrogen 11 mg/dL (9-20); Calcium 8.5 mg/dL (8.4-10.2); Carbon Dioxide 31 mmol/L (22-30); Chloride 100 mmol/L (98-107); Estimated CRCL calculation 64 ml/min; Estimated Glomerular Filt Rate > 60; Glucose 103 mg/dL (75-110); Potassium 3.1 mmol/L (3.4-5.0); Sodium 135 mmol/L (137-145)
[2020-03-04] MEDS: POTASSIUM CHLORIDE 20 MEQ TABLET 40 MEQ PO (10:05)
[2020-03-04] MEDS: ACETAMINOPHEN 500 MG TABLET 1000 MG PO ×3 (10:05→21:40)
[2020-03-04] MEDS: AMLODIPINE BESYLATE 5 MG TABLET 10 MG PO (10:05)
[2020-03-04] MEDS: IBUPROFEN IV 800 MG/200 ML 800 MG/200 ML BAG 400 MG IVPB ×3 (10:05→21:39)
--- NOTE | 2020-03-04 11:02 | PM.PNGS ---
Progress Note: A&P Assessment and Plan (1) Diverticulitis of intestine with perforation without abscess: Code(s): K57.80 - Diverticulitis of intestine, part unspecified, with perforation and abscess without bleeding Status: Acute Assessment and Plan: will stop clear liquids today and repeat a CT scan. I will go ahead and start IV ibuprofen q.6 hours on a scheduled dose. He also is getting oral Tylenol on a scheduled dose. He has p.r.n. Dilaudid as well. Will recheck labs again in the morning. Potassium will be supplemented. Will start IV fluid since patient is now in p.o.. (2) Fever: Qualifiers: Fever type: unspecified Qualified Code(s): R50.9 - Fever, unspecified Code(s): R50.9 - Fever, unspecified Status: Acute Assessment and Plan: 38.2 yesterday about 2:00 p.m. (3) Leukocytosis: Qualifiers: Leukocytosis type: unspecified Qualified Code(s): D72.829 - Elevated white blood cell count, unspecified Code(s): D72.829 - Elevated white blood cell count, unspecified Status: Acute Assessment and Plan: slightly higher than yesterday but still has leukocytosis. Fourteen thousand today. Subjective Subjective Date/Time Seen: 03/04/20 11:02 Patient reports: still having pain ( pain is worse after having clear liquids yesterday.), flatus, fever and other ( Complains of gas pain, partially relieved with flatus.) Interval history: Patient more uncomfortable this morning. Says pain is worse. White count increased slightly to 14,000 any had a temperature yesterday to 38.2 about 2:00 p.m.. Pain is mostly in the left lower quadrant. Review of Systems Review of Systems: All systems reviewed & are unremarkable except as noted in HPI and below Constitutional: Constitutional: Denies headache(s) ENT: Denies headache(s) Cardiovascular: Cardiovascular: Denies chest pain and Denies dyspnea Respiratory: Respiratory: Denies cough and Denies dyspnea Gastrointestinal: Gastrointestinal: Reports as per HPI Neurologic: Denies confusion and Denies headache(s) Psychiatric: Psychiatric: Denies confusion Exam Const: General: healthy appearing, no acute distress, well developed, alert, awake and uncomfortable; No confusion Nutritional Appearance: well nourished Orientation/consciousness: patient oriented x3 and No confusion Resp: Effort & Inspection: normal respiratory effort Auscultation: clear to auscultation bilaterally Cardio: Rate: regular rate Rhythm: regular rhythm GI: Inspection: normal to inspection GI Palp: Yes Firmness to palpation present (GI), Yes Tenderness to palpation present (GI) ( Especially left lower quadrant), Yes Guarding due to palpation present (GI) and No Palpable mass present Auscultation: normal bowel sounds Neuro: General: patient oriented x3, no focal motor deficits and No confusion Extrem: General: no calf tenderness and no edema Psych: Affect: normal affect Insight: Good insight present (Psych) Judgement: Good judgement present (Psych) Objective Data Vital Signs Vital Signs: Vital Signs - 24 hr 03/03/20 14:00 03/03/20 19:47 03/04/20 06:00 Temperature 38.2 C H 37.2 C 36.8 C Pulse Rate 94 76 97 Respiratory Rate 20 18 18 Blood Pressure 118/69 140/68 143/76 H Pulse Oximetry 93 97 92 Intake/Output Intake/Output: Intake & Output 03/01/20 03/02/20 03/03/20 03/04/20 23:59 23:59 23:59 23:59 Intake Total 2650 3350 2352 500 Output Total 1400 720 500 175 Balance 1250 2630 1852 325 Meds/Results Medications: Active Medications Generic Name Dose Route Start Last Admin Trade Name Freq PRN Reason Stop Dose Admin Acetaminophen 1,000 mg 03/03/20 15:00 03/04/20 10:05 Tylenol Tablet PO 1,000 mg Q6H SONIYA Administration Albuterol 2 puff 03/01/20 12:20 Proventil Hfa INHALATION DAILY PRN Shortness Of Breath Or Wheezing Amlodipine Besylate 10 mg 03/03/20 09:00 03/04/20 10:05
--- NOTE | 2020-03-04 13:54 | PM.IMPN ---
Progress Note: A&P Assessment and Plan (1) Diverticulitis: Code(s): K57.92 - Diverticulitis of intestine, part unspecified, without perforation or abscess without bleeding Status: Acute Assessment and Plan: -----patient's symptoms and white blood cell count worsening. We have stopped the clear liquids and went back to NPO. Surgery has ordered a repeat CT scan which is still pending. For now, continue Zosyn. Diarrhea is likely antibiotic associated diarrhea but no evidence of C diff at this time. (2) HTN (hypertension) with goal to be determined: Code(s): I10 - Essential (primary) hypertension Status: Chronic Assessment and Plan: -----last blood pressure 143/76. Patient states he is usually much higher than that and takes felodipine. This is non formulary so continue Norvasc. IV fluids have been stopped since the patient is starting a oral diet and appears euvolemic. (3) Leukocytosis: Qualifiers: Leukocytosis type: unspecified Qualified Code(s): D72.829 - Elevated white blood cell count, unspecified Code(s): D72.829 - Elevated white blood cell count, unspecified Status: Acute Assessment and Plan: -----d/t above. Will monitor daily. Additional Plan m. Subjective Date/time seen: 03/04/20 13:54 Interval history: Pt is a 54-year-old male here for diverticulitis. Patient was seen today and having more abdominal pain than yesterday. He said that the clears did not go well and made his abdominal pain worse. He has been having gas and some diarrhea. He describes his diarrhea as pure liquid with no blood. He has had some nausea but no vomiting. He denies chest pain, shortness of breath, or leg swelling. Exam Narrative: Exam Narrative: General: Well developed well nourished patient resting comfortably in bed in no acute distress HEENT: normocephalic Neck: supple Neuro: Alert and oriented x4 CV:RRR Resp:CTA Abd: Soft, partially distended. Pain to palpation worse in the lower quadrants. Positive bowel sounds Extremities: No swelling, erythema, or pain to palpation. Objective Data Vital Signs Vital Signs: Vital Signs - 24 hr 03/03/20 14:00 03/03/20 19:47 03/04/20 06:00 Temperature 100.7 F H 98.9 F 98.3 F Pulse Rate 94 76 97 Respiratory Rate 20 18 18 Blood Pressure 118/69 140/68 143/76 H Pulse Oximetry 93 97 92 Intake/Output Intake/Output: Intake & Output 03/01/20 03/02/20 03/03/20 03/04/20 23:59 23:59 23:59 23:59 Intake Total 2650 3350 2352 500 Output Total 1400 720 500 175 Balance 1250 2630 1852 325 Meds/Results Medications: Active Medications Generic Name Dose Route Start Last Admin Trade Name Freq PRN Reason Stop Dose Admin Acetaminophen 1,000 mg 03/03/20 15:00 03/04/20 10:05 Tylenol Tablet PO 1,000 mg Q6H SONIYA Administration Albuterol 2 puff 03/01/20 12:20 Proventil Hfa INHALATION DAILY PRN Shortness Of Breath Or Wheezing Amlodipine Besylate 10 mg 03/03/20 09:00 03/04/20 10:05 Norvasc PO 10 mg QAM SONIYA Administration Hydralazine HCl 10 mg 03/01/20 12:25 Apresoline Hcl Inj IV PUSH Q8H PRN systolic >175 Hydromorphone HCl 0.5 mg 03/01/20 09:17 03/04/20 00:07 Dilaudid Inj IV PUSH 0.5 mg Q2H PRN Administration Pain Rated 4-6 Hydromorphone HCl 1 mg 03/01/20 09:17 03/03/20 15:00 Dilaudid Inj IV PUSH 1 mg Q2H PRN Administration Pain Rated 7-10 Piperacillin/Tazobactam/Dextrose 3.375 gm in 50 mls @ 100 mls/hr 03/01/20 00:00 03/04/20 06:50 Zosyn 3.375 Gm/D5w 50ml Pm IVPB Infused Q6H SONIYA Infusion Ibuprofen 800 mg in 200 mls @ 400 mls/hr 03/04/20 09:00 03/04/20 10:35 Caldolor 800 Mg/200 Ml IVPB Infused Q6H SONIYA Infusion Potassium Chloride/Dextrose/Sod Cl 1,000 mls @ 80 mls/hr 03/04/20 12:00 Kcl 40 Meq/D5ns IV CONT .[id number] SONIYA Loratadine 10 mg 03/03/20 22:55 03/04/20 00:07 Delia
[2020-03-04 14:00] VITALS: BP 143/75; PULSE 81; RESP 14; TEMP 36.4; O2SAT 95
[2020-03-04] MEDS: KCL 40 MEQ/D5/0.9% SOD CHL 1,000 ML 80 ML IV CONT (14:30)
[2020-03-04 21:16] VITALS: BP 135/80; PULSE 73; RESP 16; TEMP 36.6; O2SAT 96
[2020-03-05] MEDS: IBUPROFEN IV 800 MG/200 ML 800 MG/200 ML BAG 400 MG IVPB ×4 (03:04→20:07)
[2020-03-05] MEDS: KCL 40 MEQ/D5/0.9% SOD CHL 1,000 ML 80 ML IV CONT ×2 (03:05→16:38)
[2020-03-05 06:00] VITALS: BP 141/73; PULSE 65; RESP 18; TEMP 36.6; O2SAT 97
--- NOTE | 2020-03-05 06:47 | PC.NURSE ---
1 cup of ice chips for intake
[2020-03-05 06:57] LABS: Hematocrit 49.3 % (42.0-52.0); Mean Corpuscular HGB Conc 32.5 g/dl (32-36); Mean Corpuscular Hemoglobin 28.9 pg (26-34); Mean Platelet Volume 11.1 fl (7.4-10.4); Platelet Count Result 212 k/mm3 (150-375); Red Blood Count 5.54 M/mm3 (4.6-6.20); Red Cell Distribution Width 12.9 % (11.5-14.5); White Blood Count 11.3 K/mm3 (4.5-10.0)
[2020-03-05 07:18] LABS: Blood Urea Nitrogen 13 mg/dL (9-20); Calcium 8.5 mg/dL (8.4-10.2); Carbon Dioxide 26 mmol/L (22-30); Chloride 104 mmol/L (98-107); Estimated CRCL calculation 75 ml/min; Estimated Glomerular Filt Rate > 60; Glucose 110 mg/dL (75-110); Potassium 3.3 mmol/L (3.4-5.0); Sodium 137 mmol/L (137-145)
[2020-03-05] MEDS: AMLODIPINE BESYLATE 5 MG TABLET 10 MG PO (08:07)
[2020-03-05] MEDS: ONDANSETRON INJ 4 MG/2 ML VIAL IV PUSH (08:07)
--- NOTE | 2020-03-05 11:18 | PM.PNGS ---
Progress Note: A&P Assessment and Plan (1) Diverticulitis of intestine with perforation without abscess: Code(s): K57.80 - Diverticulitis of intestine, part unspecified, with perforation and abscess without bleeding Status: Acute Assessment and Plan: Although patient is frustrated with his lack of progress and now some nausea, he does seem better than he did yesterday. He has not had any fevers since 2:00 a.m. Friday afternoon. His white blood cell count is lower than it was yesterday at 11,000 now. His abdominal exam shows decreased tenderness. His CT scan yesterday did not show evidence of an abscess but did show some signs of progression of the diverticulitis. I will go ahead and add gentamicin to be dosed by pharmacy to his Zosyn. Continue bowel rest and supplement his potassium. I discussed thoroughly the nature of his disease and potential plans at this point. Hopefully he will continue to improve rather than requiring surgery during this admission. (2) Leukocytosis: Qualifiers: Leukocytosis type: unspecified Qualified Code(s): D72.829 - Elevated white blood cell count, unspecified Code(s): D72.829 - Elevated white blood cell count, unspecified Status: Acute Assessment and Plan: Decreased from yesterday (3) Fever: Qualifiers: Fever type: unspecified Qualified Code(s): R50.9 - Fever, unspecified Code(s): R50.9 - Fever, unspecified Status: Acute Assessment and Plan: afebrile since Friday afternoon. Subjective Subjective Date/Time Seen: 03/05/20 11:18 Patient reports: pain is less, nausea and afebrile Interval history: Frustrated with his lack of progress. Did not want any oral medication due to nausea so stop taking his Tylenol. Review of Systems Review of Systems: All systems reviewed & are unremarkable except as noted in HPI and below Constitutional: Constitutional: Denies headache(s) ENT: Denies headache(s) Cardiovascular: Cardiovascular: Denies chest pain and Denies dyspnea Respiratory: Respiratory: Denies cough and Denies dyspnea Gastrointestinal: Gastrointestinal: Reports as per HPI and Reports nausea Neurologic: Denies confusion and Denies headache(s) Psychiatric: Psychiatric: Denies confusion Exam Const: General: comfortable and no acute distress; No confusion Orientation/consciousness: patient oriented x3 and No confusion GI: Inspection: non-distended GI Palp: Yes Soft to palpation, Yes Tenderness to palpation present (GI) ( Especially left lower quadrant, less tender though than yesterday.), No Guarding due to palpation present (GI) and No Rebound tenderness present Auscultation: absent bowel sounds Neuro: General: patient oriented x3, no focal motor deficits and No confusion Extrem: General: no calf tenderness and no edema Psych: Affect: normal affect Insight: Good insight present (Psych) Judgement: Good judgement present (Psych) Objective Data Vital Signs Vital Signs: Vital Signs - 24 hr 03/04/20 14:00 03/04/20 21:16 03/05/20 06:00 Temperature 36.4 C 36.6 C 36.6 C Pulse Rate 81 73 65 Respiratory Rate 14 16 18 Blood Pressure 143/75 H 135/80 141/73 H Pulse Oximetry 95 96 97 Intake/Output Intake/Output: Intake & Output 03/02/20 03/03/20 03/04/20 03/05/20 23:59 23:59 23:59 23:59 Intake Total 3350 2352 1000 1330 Output Total 720 500 175 100 Balance 2630 4540 465 3578 Meds/Results Medications: Active Medications Generic Name Dose Route Start Last Admin Trade Name Freq PRN Reason Stop Dose Admin Acetaminophen 1,000 mg 03/03/20 15:00 03/05/20 08:08 Tylenol Tablet PO Not Given Q6H [facility] Albuterol 2 puff 03/01/20 12:20 Proventil Hfa INHALATION DAILY PRN Shortness Of Breath Or Wheezing Amlodipine Besylate 10 mg 03/03/20 09:00 03/05/20 08:07 Norvasc PO 10 mg QAM SONIYA Administration Gentamicin Sulfate 100 each 03/05/20 11:20 Gent
--- NOTE | 2020-03-05 11:42 | PM.IMPN ---
Progress Note: A&P Assessment and Plan (1) Diverticulitis: Code(s): K57.92 - Diverticulitis of intestine, part unspecified, without perforation or abscess without bleeding Status: Acute Assessment and Plan: -----patient's symptoms are persistent and CT shows some progression. With that being said, his white count is better today. He is still having night sweats which is concerning although his blood cultures are negative. Gentamicin was added to his Zosyn regimen today. He is still having some diarrhea which is likely antibiotic associated diarrhea with no evidence of C diff at this time. (2) HTN (hypertension) with goal to be determined: Code(s): I10 - Essential (primary) hypertension Status: Chronic Assessment and Plan: -----last blood pressure 141/73. Patient states he is usually much higher than that and takes felodipine. This is non formulary so continue Norvasc. IV fluids have been stopped since the patient is starting a oral diet and appears euvolemic. (3) Leukocytosis: Qualifiers: Leukocytosis type: unspecified Qualified Code(s): D72.829 - Elevated white blood cell count, unspecified Code(s): D72.829 - Elevated white blood cell count, unspecified Status: Acute Assessment and Plan: -----d/t above. Will monitor daily. Additional Plan m. Subjective Date/time seen: 03/05/20 11:42 Interval history: Pt is a 54-year-old male here for diverticulitis. Patient was seen today and states his pain is a 4/10. He said he is continuing to have night sweats and chills. He has had some nausea no vomiting. He still having diarrhea and has had 3 episodes today. No chest pain or shortness of breath. Exam Narrative: Exam Narrative: General: Well developed well nourished patient resting comfortably in bed in no acute distress HEENT: normocephalic Neck: supple Neuro: Alert and oriented x4 CV:RRR Resp:CTA Abd: Soft, partially distended. Pain to palpation worse in the lower quadrants. Positive bowel sounds Extremities: No swelling, erythema, or pain to palpation. Objective Data Vital Signs Vital Signs: Vital Signs - 24 hr 03/04/20 14:00 03/04/20 21:16 03/05/20 06:00 Temperature 97.6 F 97.8 F 97.9 F Pulse Rate 81 73 65 Respiratory Rate 14 16 18 Blood Pressure 143/75 H 135/80 141/73 H Pulse Oximetry 95 96 97 Intake/Output Intake/Output: Intake & Output 03/02/20 03/03/20 03/04/20 03/05/20 23:59 23:59 23:59 23:59 Intake Total 3350 2352 1000 1330 Output Total 720 500 175 100 Balance 2630 2308 213 2678 Meds/Results Medications: Active Medications Generic Name Dose Route Start Last Admin Trade Name Freq PRN Reason Stop Dose Admin Acetaminophen 1,000 mg 03/03/20 15:00 03/05/20 08:08 Tylenol Tablet PO Not Given Q6H [facility] Albuterol 2 puff 03/01/20 12:20 Proventil Hfa INHALATION DAILY PRN Shortness Of Breath Or Wheezing Amlodipine Besylate 10 mg 03/03/20 09:00 03/05/20 08:07 Norvasc PO 10 mg QAM SONIYA Administration Hydralazine HCl 10 mg 03/01/20 12:25 Apresoline Hcl Inj IV PUSH Q8H PRN systolic >175 Hydromorphone HCl 0.5 mg 03/01/20 09:17 03/04/20 00:07 Dilaudid Inj IV PUSH 0.5 mg Q2H PRN Administration Pain Rated 4-6 Hydromorphone HCl 1 mg 03/01/20 09:17 03/03/20 15:00 Dilaudid Inj IV PUSH 1 mg Q2H PRN Administration Pain Rated 7-10 Piperacillin/Tazobactam/Dextrose 3.375 gm in 50 mls @ 100 mls/hr 03/01/20 00:00 03/05/20 06:35 Zosyn 3.375 Gm/D5w 50ml Pm IVPB Infused Q6H [facility] Infusion Ibuprofen 800 mg in 200 mls @ 400 mls/hr 03/04/20 09:00 03/05/20 09:33 Caldolor 800 Mg/200 Ml IVPB 400 mls/hr Q6H SON[facility] Administration Potassium Chloride/Dextrose/Sod Cl 1,000 mls @ 80 mls/hr 03/04/20 12:00 03/05/20 03:05 Kcl 40 Meq/D5ns IV CONT 80 mls/hr .[id number] SONIYA Administration Gentamicin Sulfate 430 mg/ 110.75
[2020-03-05] MEDS: GENTAMICIN SULFATE INJ 430 MG in DEXTROSE 5% 100 ML 100 MG IVPB (12:25)
[2020-03-05 14:00] VITALS: BP 128/75; PULSE 69; RESP 18; TEMP 36.2; O2SAT 98
[2020-03-05] MEDS: POTASSIUM CHLORIDE 20 MEQ TABLET.ER PO (16:41)
[2020-03-05] MEDS: MONTELUKAST SODIUM 10 MG TABLET PO (20:07)
[2020-03-05] MEDS: LORATADINE 10 MG TABLET PO (20:07)
[2020-03-05 22:00] VITALS: BP 139/75; PULSE 65; RESP 14; TEMP 36.9; O2SAT 99
[2020-03-06] MEDS: HYDROMORPHONE HCL 1 MG/ML INJ 0.5 MG IV PUSH (00:35)
[2020-03-06] MEDS: ONDANSETRON INJ 4 MG/2 ML VIAL IV PUSH ×3 (00:38→23:43)
[2020-03-06 01:27] LABS: Gentamicin Random 0.8 ug/mL (5.0-12.0)
[2020-03-06] MEDS: IBUPROFEN IV 800 MG/200 ML 800 MG/200 ML BAG 400 MG IVPB ×2 (04:10→09:25)
[2020-03-06 05:25] LABS: Hematocrit 45.7 % (42.0-52.0); Mean Corpuscular HGB Conc 32.8 g/dl (32-36); Mean Corpuscular Hemoglobin 29.3 pg (26-34); Mean Corpuscular Volume 89.3 fl (80-100); Mean Platelet Volume 10.6 fl (7.4-10.4); Platelet Count Result 219 k/mm3 (150-375); Red Blood Count 5.12 M/mm3 (4.6-6.20); Red Cell Distribution Width 12.8 % (11.5-14.5); White Blood Count 7.8 K/mm3 (4.5-10.0)
[2020-03-06 05:44] LABS: Blood Urea Nitrogen 11 mg/dL (9-20); Calcium 8.5 mg/dL (8.4-10.2); Carbon Dioxide 29 mmol/L (22-30); Chloride 104 mmol/L (98-107); Estimated CRCL calculation 69 ml/min; Estimated Glomerular Filt Rate > 60; Glucose 97 mg/dL (75-110); Magnesium 1.8 mg/dL (1.6-2.3); Potassium 3.4 mmol/L (3.4-5.0); Sodium 139 mmol/L (137-145)
[2020-03-06 05:50] VITALS: BP 145/75; PULSE 71; RESP 14; TEMP 36.5; O2SAT 98
[2020-03-06] MEDS: POTASSIUM CHLORIDE 20 MEQ TABLET.ER PO ×2 (09:24→17:32)
[2020-03-06] MEDS: AMLODIPINE BESYLATE 5 MG TABLET 10 MG PO (09:25)
[2020-03-06] MEDS: KCL 40 MEQ/D5/0.9% SOD CHL 1,000 ML 80 ML IV CONT (09:25)
--- NOTE | 2020-03-06 10:36 | PM.IMPN ---
Progress Note: A&P Assessment and Plan (1) Diverticulitis: Code(s): K57.92 - Diverticulitis of intestine, part unspecified, without perforation or abscess without bleeding Status: Acute Assessment and Plan: -----Pt is improving and his WBC is now normal. His last fever was 5/15. he is still having night sweats. Continue Zosyn and gentamicin. He is having a fair amount of diarrhea. I have called Dr. Andrew to see his recommendations. As for the floaters, they started before the gentamicin and the other medications he has been on is zosyn and ibuprofen. None of these have been shown to specifically cause floaters, but both can cause rare blurred vision. I will also discuss this with Dr. Andrew. For now, stop ibuprofen and see if that helps. No signs of cdiff (WBC normal), likely abx associated diarrhea. (2) HTN (hypertension) with goal to be determined: Code(s): I10 - Essential (primary) hypertension Status: Chronic Assessment and Plan: -----last blood pressure 145/75. Patient states he is usually much higher than that and takes felodipine. This is non formulary so continue Norvasc. Once he starts eating, discontinue IV fluids. (3) Leukocytosis: Qualifiers: Leukocytosis type: unspecified Qualified Code(s): D72.829 - Elevated white blood cell count, unspecified Code(s): D72.829 - Elevated white blood cell count, unspecified Status: Acute Assessment and Plan: -----d/t above. Will monitor daily. Subjective Date/time seen: 03/06/20 10:36 Interval history: Pt is a 54-year-old male here for diverticulitis. Patient was seen today and states his pain is a 4/10 and improving. He is still experiencing nausea but no vomiting. He thinks he is feeling better. He has had more diarrhea and states he has about 10 episodes a day. He also mentions 3 days ago he started seeing 'floaters' which is not normal for him. Hes never had this issues. he has no blurred vision, pain, blind spots, or headache with this. He also denies hearing loss, chest pain, or shortness of breath. Exam Narrative: Exam Narrative: General: Well developed well nourished patient resting comfortably in the chair in no acute distress HEENT: normocephalic, pupils equal and reactive Neck: supple Neuro: Alert and oriented x4 CV:RRR Resp:CTA Abd: Soft, partially distended. Pain to palpation worse in the lower quadrants. Positive bowel sounds Extremities: No swelling, erythema, or pain to palpation. Objective Data Vital Signs Vital Signs: Vital Signs - 24 hr 03/05/20 14:00 03/05/20 22:00 03/06/20 05:50 Temperature 97.2 F L 98.4 F 97.7 F Pulse Rate 69 65 71 Respiratory Rate 18 14 14 Blood Pressure 128/75 139/75 145/75 H Pulse Oximetry 98 99 98 Intake/Output Intake/Output: Intake & Output 03/03/20 03/04/20 03/05/20 03/06/20 23:59 23:59 23:59 23:59 Intake Total 2352 1000 3670.75 1250 Output Total 500 175 100 600 Balance 8872 885 1032.75 650 Meds/Results Medications: Active Medications Generic Name Dose Route Start Last Admin Trade Name Freq PRN Reason Stop Dose Admin Acetaminophen 1,000 mg 03/03/20 15:00 03/06/20 09:27 Tylenol Tablet PO Not Given Q6H [facility] Albuterol 2 puff 03/01/20 12:20 Proventil Hfa INHALATION DAILY PRN Shortness Of Breath Or Wheezing Amlodipine Besylate 10 mg 03/03/20 09:00 03/06/20 09:25 Norvasc PO 10 mg QAM S[facility] Administration Hydralazine HCl 10 mg 03/01/20 12:25 Apresoline Hcl Inj IV PUSH Q8H PRN systolic >175 Hydromorphone HCl 1 mg 03/01/20 09:17 03/03/20 15:00 Dilaudid Inj IV PUSH 1 mg Q2H PRN Administration Pain Rated 7-10 Piperacillin/Tazobactam/Dextrose 3.375 gm in 50 mls @ 100 mls/hr 03/01/20 00:00 03/06/20 05:44 Zosyn 3.375 Gm/D5w 50ml Pm IVPB Infused Q6H [facility] Infusion Potassium Chloride/Dextrose/Sod Cl 1,000 mls @ 80 mls/hr 03/04/20 12:00 03/06
--- NOTE | 2020-03-06 10:45 | PM.PNGS ---
Progress Note: A&P Assessment and Plan (1) Diverticulitis of intestine with perforation without abscess: Qualifiers: Diverticulitis site: large intestine Diverticulitis bleeding: without bleeding Qualified Code(s): K57.20 - Diverticulitis of large intestine with perforation and abscess without bleeding Code(s): K57.80 - Diverticulitis of intestine, part unspecified, with perforation and abscess without bleeding Status: Acute Assessment and Plan: Patient showing some signs of improvement. WBC normal today and patient remains afebrile. He is still significantly tender and having episodes of pain and nausea, although seems to be slightly improving. He is mildly distended with lower abdominal tenderness that has shown some improvement. Repeat CT scan over the weekend showed some progression of the diverticulitis but no formed abscess. IV Gentamicin was added to the IV Zosyn over the weekend, continue the IV antibiotics. We will start the patient on TPN for nutrition today due to his prolonged bowel rest. Will allow more time with conservative management to see if he continues to improve and try to avoid surgery with the possibility of an ostomy. Dr. Richter will see the patient today separately and further discuss the treatment plan and his options at this point. May consider allowing the patient to have a clear liquid diet later today or tomorrow if he improves. (2) Leukocytosis: Qualifiers: Leukocytosis type: unspecified Qualified Code(s): D72.829 - Elevated white blood cell count, unspecified Code(s): D72.829 - Elevated white blood cell count, unspecified Status: Acute Assessment and Plan: Normal today and afebrile since Friday afternoon. Continue to monitor. Additional Plan Discussed the patient's case and formulated the plan of care with Dr. Richter. Subjective Subjective Date/Time Seen: 03/06/20 10:00 Patient reports: flatus, bowel movement and diarrhea Interval history: Patient reports still having lower abdominal pain. Reports it is slightly improved over the past few days. States he is still having intermittent nausea. Reports diarrhea with 3 bowel movements this morning already, no blood noted in stool. Denies vomiting. Reports feeling bloated. No other complaints at this time. Review of Systems Review of Systems: All systems reviewed & are unremarkable except as noted in HPI and below Constitutional: Constitutional: Denies headache(s) Cardiovascular: Cardiovascular: Denies chest pain, Denies leg edema and Denies dyspnea Respiratory: Respiratory: Denies dyspnea and Denies wheezing Gastrointestinal: Gastrointestinal: Reports as per HPI and Denies vomiting Neurologic: Denies confusion and Denies weakness Exam Const: General: comfortable, no acute distress, alert and awake Orientation/consciousness: patient oriented x3 GI: Inspection: other (mildly distended) GI Palp: Yes Soft to palpation, Yes Tenderness to palpation present (GI) (lower abdomen, worse in LLQ), No Guarding due to palpation present (GI) and No Rebound tenderness present Auscultation: Hypoactive bowel sounds present Neuro: General: moves all extremities and no focal motor deficits Extrem: General: no calf tenderness and no edema Psych: Appearance: grossly normal Affect: normal affect Attitude: cooperative Insight: Good insight present (Psych) Judgement: Good judgement present (Psych) Objective Data Vital Signs Vital Signs: Vital Signs - 24 hr 03/05/20 14:00 03/05/20 22:00 03/06/20 05:50 Temperature 36.2 C L 36.9 C 36.5 C Pulse Rate 69 65 71 Respiratory Rate 18 14 14 Blood Pressure 128/75 139/75 145/75 H Pulse Oximetry 98 99 98 Intake/Output Intake/Output: Intake & Output 03/03/20 03/04/20 03/05/20 03/06/20 23:59 23:59 23:59 23:59 Intake Total 2352 1000 3670.75 1250 Output Total 500 175 100 600 Balance 1131 842 5130.75 650 Meds/Results Medications: Active Medicatio
[2020-03-06 11:22] VITALS: BMI 27.8
--- NOTE | 2020-03-06 11:40 | PCDIET ---
Physician Consult for PPN. See Comprehensive Nutrition Assessment. Patient NPO/Clear liquids x 7 days. Clinimix E 4.25/5 with 250 ml of 20% Lipid Emulsion starting at 80 ml/hr. This will providing 1153 kcals and 82 gms protein. PPN is appropriate at this time. RD will continue to monitor every Friday and Friday.
[2020-03-06] MEDS: SIMETHICONE 80 MG TAB.CHEW PO ×3 (13:00→20:00)
[2020-03-06] MEDS: FAT EMULSIONS IV 20% 250 ML 20.8 ML IVPB (13:03)
[2020-03-06] MEDS: AMINO ACIDS 4.25%/D5W/LYTES/CA 2,000 ML 80 ML IV CONT (13:04)
[2020-03-06] MEDS: GENTAMICIN SULFATE INJ 430 MG in DEXTROSE 5% 100 ML 100 MG IVPB (13:21)
[2020-03-06 14:26] VITALS: BP 154/78; PULSE 63; RESP 12; TEMP 36.2; O2SAT 97
[2020-03-06 14:30] LABS: Transferrin 146 mg/dL (206-381)
[2020-03-06 17:43] LABS: Glucose Point of Care 106 (65-105)
[2020-03-06 19:46] VITALS: BP 147/84; PULSE 73; RESP 14; TEMP 36.9; O2SAT 97
[2020-03-06] MEDS: MONTELUKAST SODIUM 10 MG TABLET PO (20:00)
[2020-03-06 23:37] LABS: Glucose Point of Care 112 (65-105)
[2020-03-07] MEDS: HYDROMORPHONE HCL 1 MG/ML INJ 0.5 MG IV PUSH (01:05)
[2020-03-07 05:24] VITALS: BP 143/85; PULSE 67; RESP 16; TEMP 36.7; O2SAT 97
[2020-03-07 05:37] LABS: Basophils Percent Auto 0.3 % (0.2-1.2); Eosinophils Absolute Auto 0.3 K/mm3 (0-0.3); Eosinophils Percent Auto 2.9 % (0-4.4); Hematocrit 47.3 % (42.0-52.0); Hemoglobin 15.9 g/dL (14.0-18.0); Immature Granulocyte Absolute 0.21 K/mm3 (0.00-0.031); Immature Granulocyte Percent A 2.1 % (0-0.5); Lymphocytes Absolute Auto 1.63 K/mm3 (0.9-3.2); Lymphocytes Percent Auto 16.4 % (18.3-44.2); Mean Corpuscular HGB Conc 33.6 g/dl (32-36); Mean Corpuscular Hemoglobin 29.6 pg (26-34); Mean Corpuscular Volume 88.1 fl (80-100); Mean Platelet Volume 10.3 fl (7.4-10.4); Monocytes Absolute Auto 0.8 K/mm3 (0.1-0.6); Monocytes Percent Auto 8.4 % (2.6-8.5); Neutrophils Percent Auto 69.9 % (45.5-73.1); Platelet Count Result 252 k/mm3 (150-375); Red Blood Count 5.37 M/mm3 (4.6-6.20); Red Cell Distribution Width 12.7 % (11.5-14.5)
[2020-03-07 05:51] LABS: Alanine Aminotransferase 30 U/L (4-50); Albumin Level 3.7 g/dL (3.5-5.1); Alkaline Phosphatase 62 U/L (38-126); Aspartate Amino Transferase 34 U/L (17-59); Bilirubin,Total 0.3 mg/dL (0.2-1.3); Blood Urea Nitrogen 14 mg/dL (9-20); Calcium 9.1 mg/dL (8.4-10.2); Carbon Dioxide 30 mmol/L (22-30); Chloride 100 mmol/L (98-107); Estimated CRCL calculation 69 ml/min; Estimated Glomerular Filt Rate > 60; Glucose 108 mg/dL (75-110); Phosphorus 4.9 mg/dL (2.5-4.5); Potassium 3.4 mmol/L (3.4-5.0); Sodium 136 mmol/L (137-145)
[2020-03-07 05:52] LABS: Glucose Point of Care 110 (65-105)
[2020-03-07 05:55] LABS: Triglycerides 93 mg/dL (<150)
[2020-03-07] MEDS: SIMETHICONE 80 MG TAB.CHEW PO ×4 (09:03→21:27)
[2020-03-07] MEDS: POTASSIUM CHLORIDE 20 MEQ TABLET.ER PO ×2 (09:03→16:33)
[2020-03-07 09:04] VITALS: PULSE 68; RESP 16; O2SAT 97
[2020-03-07] MEDS: AMLODIPINE BESYLATE 5 MG TABLET 10 MG PO (09:04)
--- NOTE | 2020-03-07 09:46 | PM.PNGS ---
Progress Note: A&P Assessment and Plan (1) Diverticulitis of intestine with perforation without abscess: Qualifiers: Diverticulitis site: large intestine Diverticulitis bleeding: without bleeding Qualified Code(s): K57.20 - Diverticulitis of large intestine with perforation and abscess without bleeding Code(s): K57.80 - Diverticulitis of intestine, part unspecified, with perforation and abscess without bleeding Status: Acute Assessment and Plan: Patient continues to slowly improve. WBC remains normal and he is afebrile. Abdominal pain and tenderness is improving. Still having some nausea and bloating. Will try clear liquids today, but continue the Clinimix for nutrition until he is tolerating a substantial diet. Continue IV antibiotics. (2) Leukocytosis: Qualifiers: Leukocytosis type: unspecified Qualified Code(s): D72.829 - Elevated white blood cell count, unspecified Code(s): D72.829 - Elevated white blood cell count, unspecified Status: Acute Assessment and Plan: WBC normal x 2 days now. Continue to monitor. Additional Plan Discussed the patient's case and formulated the plan of care with Dr. Richter. Subjective Subjective Date/Time Seen: 03/07/20 09:00 Patient reports: no new complaints, pain is less, bowel movement (more formed today) and nausea Interval history: Patient reports abdominal pain has improved today, still in lower abdomen. Reports still having nausea but feels it is attributed to hunger, denies vomiting. Reports bloating is about the same. Continues to have loose stools but feels it is more formed today. No blood noted in stool. No other complaints at this time. Review of Systems Review of Systems: All systems reviewed & are unremarkable except as noted in HPI and below Constitutional: Constitutional: Denies chills, Denies fever(s), Denies headache(s) and Denies weakness Cardiovascular: Cardiovascular: Denies chest pain, Denies leg edema and Denies lightheadedness Respiratory: Respiratory: Denies dyspnea Gastrointestinal: Gastrointestinal: Reports as per HPI Exam Const: General: comfortable, no acute distress, alert and awake Orientation/consciousness: patient oriented x3 GI: Inspection: other (mildly distended) GI Palp: Yes Soft to palpation, Yes Tenderness to palpation present (GI) (lower abdomen, worse in LLQ), Yes Guarding due to palpation present (GI) (voluntary guarding LLQ) and No Rebound tenderness present Auscultation: normal bowel sounds Skin: General skin exam: normal color Neuro: General: moves all extremities and no focal motor deficits Extrem: General: normal to inspection, no calf tenderness and no edema Psych: Mental Status: mental status grossly normal Affect: normal affect Thought process: Normal thought process present Insight: Good insight present (Psych) Judgement: Good judgement present (Psych) Objective Data Vital Signs Vital Signs: Vital Signs - 24 hr 03/06/20 14:26 03/06/20 19:46 03/07/20 05:24 Temperature 36.2 C L 36.9 C 36.7 C Pulse Rate 63 73 67 Respiratory Rate 12 14 16 Blood Pressure 154/78 H 147/84 H 143/85 H Pulse Oximetry 97 97 97 Intake/Output Intake/Output: Intake & Output 03/04/20 03/05/20 03/06/20 03/07/20 23:59 23:59 23:59 23:59 Intake Total 1000 3670.75 1900.75 1592 Output Total 175 100 600 700 Balance 825 3570.75 1300.75 892 Meds/Results Medications: Active Medications Generic Name Dose Route Start Last Admin Trade Name Freq PRN Reason Stop Dose Admin Acetaminophen 1,000 mg 03/03/20 15:00 03/07/20 09:04 Tylenol Tablet PO Not Given Q6H [facility] Albuterol 2 puff 03/01/20 12:20 Proventil Hfa INHALATION DAILY PRN Shortness Of Breath Or Wheezing Amlodipine Besylate 10 mg 03/03/20 09:00 03/07/20 09:04 Norvasc PO 10 mg QAM SONIYA Administration Dextrose 12.5 gm 03/06/20 19:07 Dextrose 50% Syringe IV PUSH PRN PRN Hyp
[2020-03-07 11:25] LABS: Glucose Point of Care 104 (65-105)
[2020-03-07] MEDS: FAT EMULSIONS IV 20% 250 ML 20.8 ML IVPB (12:11)
[2020-03-07] MEDS: AMINO ACIDS 4.25%/D5W/LYTES/CA 2,000 ML 80 ML IV CONT (12:13)
[2020-03-07] MEDS: GENTAMICIN SULFATE INJ 430 MG in DEXTROSE 5% 100 ML 100 MG IVPB (12:23)
--- NOTE | 2020-03-07 13:17 | PM.IMPN ---
Progress Note: A&P Assessment and Plan (1) Diverticulitis: Code(s): K57.92 - Diverticulitis of intestine, part unspecified, without perforation or abscess without bleeding Status: Acute Assessment and Plan: Patient seems to be slowly improving. General surgery following - appreciate recommendations. Clear liquid diet today. Continue IV antibiotics with IV Zosyn (day 7) per Dr Andrew's recommendations - appreciate input. Florastor and loperamide added for antibiotic-associated diarrhea with c diff negative. (2) HTN (hypertension) with goal to be determined: Code(s): I10 - Essential (primary) hypertension Status: Chronic Assessment and Plan: Last 143/85. Home felodipine is nonformulary, continue Norvasc here. Monitor BP. Subjective Date/time seen: 03/07/20 13:00 Interval history: Mr. Carrington is a 54yo M admitted for diverticulitis. Patient notes he is feeling slightly better than yesterday although he continues with lower abdominal pain. He has tolerated a clear liquid tray so far and notes no worsening pain, nausea, or vomiting after eating broth. He notes 4 BMs today that are starting to become slightly more formed. He denies any chest pain or shortness of breath. Review of Systems Review of Systems: Narrative: Twelve systems were reviewed with pertinent positives and negatives as per HPI. Exam Narrative: Exam Narrative: General: Male resting supine on bedside cot in no acute distress. HEENT: Normocephalic, EOMI, oral mucosa moist. Cardiovascular: Rate and rhythm are regular. Respiratory: Lungs clear to auscultation all rodríguez. Tolerating room air. Abdomen: Soft, tenderness to palpation of lower abdomen without guarding, bowel sounds present. Extremities: Peripheral pulses intact. No edema. Neuro: No focal neurological deficits. Speech is clear. Objective Data Vital Signs Vital Signs: Last Vital Signs Temp 98.1 F 03/07/20 05:24 Pulse 68 03/07/20 09:04 Resp 16 03/07/20 09:04 BP 143/85 H 03/07/20 05:24 Pulse Ox 97 03/07/20 09:04 Intake/Output Intake/Output: Intake & Output 03/04/20 03/05/20 03/06/20 03/07/20 23:59 23:59 23:59 23:59 Intake Total 1000 3670.75 1900.75 2350 Output Total 175 100 600 700 Balance 825 3570.75 1300.75 1650 Meds/Results Medications: Active Medications Generic Name Dose Route Start Last Admin Trade Name Freq PRN Reason Stop Dose Admin Acetaminophen 1,000 mg 03/03/20 15:00 03/07/20 09:04 Tylenol Tablet PO Not Given Q6H [facility] Albuterol 2 puff 03/01/20 12:20 Proventil Hfa INHALATION DAILY PRN Shortness Of Breath Or Wheezing Amlodipine Besylate 10 mg 03/03/20 09:00 03/07/20 09:04 Norvasc PO 10 mg QAM SONIYA Administration Dextrose 12.5 gm 03/06/20 19:07 Dextrose 50% Syringe IV PUSH PRN PRN Hypoglycemia Protocol Glucagon 1 mg 03/06/20 19:07 Glucagon For Inj IM PRN PRN Hypoglycemia Protocol Glucose 15 gm 03/06/20 19:07 Glutose 15 PO PRN PRN Hypoglycemia Protocol Hydralazine HCl 10 mg 03/01/20 12:25 Apresoline Hcl Inj IV PUSH Q8H PRN systolic >175 Hydromorphone HCl 1 mg 03/01/20 09:17 03/03/20 15:00 Dilaudid Inj IV PUSH 1 mg Q2H PRN Administration Pain Rated 7-10 Hydromorphone HCl 0.5 mg 03/06/20 10:35 03/07/20 01:05 Dilaudid Inj IV PUSH 0.5 mg Q2H PRN Administration Pain Rated 7-10 Piperacillin/Tazobactam/Dextrose 3.375 gm in 50 mls @ 100 mls/hr 03/01/20 00:00 03/07/20 12:15 Zosyn 3.375 Gm/D5w 50ml Pm IVPB Infused Q6H [facility] Infusion Gentamicin Sulfate 430 mg/ 110.75 mls @ 101.839 mls/hr 03/05/20 12:35 Dextrose IVPB PRN PRN Kinetics Consult Gentamicin Sulfate 430 mg/ 110.75 mls @ 100 mls/hr 03/06/20 13:00 03/07/20 12:23 Dextrose IVPB 100 mls/hr DAILY@1300 SONIYA Administration
--- NOTE | 2020-03-07 13:25 | WPDINFPN2 ---
Progress Note: A&P Assessment and Plan (1) Diverticulitis: Code(s): K57.92 - Diverticulitis of intestine, part unspecified, without perforation or abscess without bleeding Status: Acute Assessment and Plan: Diverticular abscess REC PipTazo #7. Add florastor and loperamide for his antibiotic associated diarrhea, C diff NR. Oral therapy once pain/po intake/diarrhea are substantailly better Subjective Date/time seen: 03/07/20 13:25 Objective Data Vital Signs Vital Signs: Vital Signs - 24 hr 03/06/20 14:26 03/06/20 19:46 03/07/20 05:24 Temperature 36.2 C L 36.9 C 36.7 C Pulse Rate 63 73 67 Respiratory Rate 12 14 16 Blood Pressure 154/78 H 147/84 H 143/85 H Pulse Oximetry 97 97 97 03/07/20 09:04 Temperature Pulse Rate 68 Respiratory Rate 16 Blood Pressure Pulse Oximetry 97 Intake/Output Intake/Output: Intake & Output 03/04/20 03/05/20 03/06/20 03/07/20 23:59 23:59 23:59 23:59 Intake Total 1000 3670.75 1900.75 2350 Output Total 175 100 600 700 Balance 825 3570.75 1300.75 1650 Meds/Results Medications: Active Medications Generic Name Dose Route Start Last Admin Trade Name Freq PRN Reason Stop Dose Admin Acetaminophen 1,000 mg 03/03/20 15:00 03/07/20 09:04 Tylenol Tablet PO Not Given Q6H SONIYA Albuterol 2 puff 03/01/20 12:20 Proventil Hfa INHALATION DAILY PRN Shortness Of Breath Or Wheezing Amlodipine Besylate 10 mg 03/03/20 09:00 03/07/20 09:04 Norvasc PO 10 mg QAM SONIYA Administration Dextrose 12.5 gm 03/06/20 19:07 Dextrose 50% Syringe IV PUSH PRN PRN Hypoglycemia Protocol Glucagon 1 mg 03/06/20 19:07 Glucagon For Inj IM PRN PRN Hypoglycemia Protocol Glucose 15 gm 03/06/20 19:07 Glutose 15 PO PRN PRN Hypoglycemia Protocol Hydralazine HCl 10 mg 03/01/20 12:25 Apresoline Hcl Inj IV PUSH Q8H PRN systolic >175 Hydromorphone HCl 1 mg 03/01/20 09:17 03/03/20 15:00 Dilaudid Inj IV PUSH 1 mg Q2H PRN Administration Pain Rated 7-10 Hydromorphone HCl 0.5 mg 03/06/20 10:35 03/07/20 01:05 Dilaudid Inj IV PUSH 0.5 mg Q2H PRN Administration Pain Rated 7-10 Piperacillin/Tazobactam/Dextrose 3.375 gm in 50 mls @ 100 mls/hr 03/01/20 00:00 03/07/20 12:15 Zosyn 3.375 Gm/D5w 50ml Pm IVPB Infused Q6H SONIYA Infusion Dextrose 1,000 mls @ 50 mls/hr 03/06/20 10:41 Dextrose 10% IV CONT .Q20H PRN if PN is interrupted Amino Acids/Electrolytes/Dextrose 2,000 mls @ 80 mls/hr 03/06/20 12:00 03/07/20 12:13 Clinimix E 4.25%/5% Solution IV CONT 80 mls/hr .Q24H SONIYA Administration Protocol Fat Emulsion Intravenous 250 mls @ 20.833 mls/hr 03/06/20 09:00 03/07/20 12:11 Lipids 20% IVPB 20.8 mls/hr Q24H SONIYA Administration Dextrose 1,000 mls @ 100 mls/hr 03/06/20 19:07 Dextrose 5% 1,000 Ml IVPB PRN PRN Hypoglycemia Protocol Montelukast Sodium 10 mg 03/03/20 22:55 03/06/20 20:00 Singulair PO 10 mg HS OSNIYA Administration Ondansetron HCl 4 mg 03/02/20 18:05 03/06/20 23:43 Zofran Inj IV PUSH 4 mg Q6H PRN Administration Nausea And Vomiting Potassium Chloride 20 meq 03/05/20 17:00 03/07/20 09:03 Kcl Tablet PO 20 meq BIDWM SONIYA Administration Simethicone 80 mg 03/06/20 13:00 03/07/20 12:37 Mylicon PO 80 mg QID SONIYA Administration Radiology Results: ITS Impressions Abdomen X-Ray 03/01/20 13:20 IMPRESSION: Nonspecific abdomen Abdomen/Pelvis CT 03/04/20 17:21 IMPRESSION: 1. Perforated sigmoid diverticulitis with free intraperitoneal gas as well as a couple small gas and fluid collections without a well-defined organizing peterson in the right hemipelvis but concerning for progression towards abscesses. Labs Labs: Laboratory Results - last 24 hr 03/06/20 03/06/20 03/06/20 11:52 17:34 23:07 WBC RBC Hgb Hct
--- NOTE | 2020-03-07 14:23 | PCDIET ---
Nutrition Follow-Up Complete: Altered GI fxn as related to diverticulitis as related to NPO/Clear liquids x 7 days. Meet estimated nutritional needs Goal:Progressing towards goal. Continue with current goal. Pt current nutrition is Clear Liquids + PPN at 80ml/hr +250ml lipids daily providing 1153 kcals 2170ml of fluids and 82g protein. Nutrition recommendation: Agree Last recorded weight is 85.6 kg (Recommend new wt) Bowel Motility:diarrhea today, pt states immodium starting Labs Reviewed:Na 136, PO4 4.9 Meds Noted:Agree with Seda, IV zosyn, KCL Additional Notes: Pt states he is tolerating liquid diet, no emesis, no pain. Pt had no questions regarding PPN at this time. Recommend ADAT to low fiber with reduction in PPN as PO intake approaches 50% or greater. We will continue to monitor PO intake and diet advancement every T/F.
[2020-03-07 14:31] VITALS: BP 127/68; PULSE 71; RESP 16; TEMP 36.3; O2SAT 98
[2020-03-07] MEDS: LOPERAMIDE HCL 2 MG CAPSULE PO ×2 (15:09→16:36)
--- NOTE | 2020-03-07 18:17 | CONS_ITS ---
DATE OF CONSULTATION: 03/07/2020 REASON FOR CONSULTATION: Diverticulitis. HISTORY OF PRESENT ILLNESS: The patient is a 54-year-old male who had a colonoscopy performed some 3 years ago and reportedly showed colon polyps without other difficulties. He was in his usual state of health until the day of admission, 02/28, when he developed diffuse abdominal pain, temperature up to 38.9, nausea and anorexia. He has been started on piperacillin and remains on that, now day #7. He has not yet required any surgical intervention. His pain is improved, but not resolved, still noticeable in the evening and nighttime hours in bilateral lower quadrants. His appetite is diminished, but he has tolerated so far clear liquids, begun today. He is on peripheral IV nutrition. He was on no antibiotics 4 to 6 weeks prior to admission. No immunosuppressants. No longer-term fever. Gentamicin was also held several days ago. He has had diarrhea while here in the hospital, multiple loose to liquid bowel movements. PAST MEDICAL HISTORY: Hypertension, sinus surgery. ALLERGIES: NONE KNOWN. PRESENT MEDICATIONS: Piperacillin and gentamicin. No immunosuppressants. HABITS: Occasional marijuana, ex-smoker, social drinker. FAMILY HISTORY: Not pertinent to his present illness. SOCIAL HISTORY: He is single, works for [employer] and lives locally. REVIEW OF SYSTEMS: Constitutional, GI, skin, respiratory, ENT otherwise negative. PHYSICAL EXAMINATION: GENERAL: This is a middle-aged male who appears his actual age. No apparent distress. VITAL SIGNS: His temperature since arrival T-max 38.2 on the March 03, 38.9 on admission, otherwise afebrile, 143/85, 67, 16, 97% on room air. SKIN: Warm and dry. EENT: The conjunctivae are normal. Pupils equal, round, and reactive to light. The oropharynx and oral mucosa are normal. NECK: No masses. LUNGS: Clear to auscultation. CARDIAC: Regular rate and rhythm with a physiologic split S2. No murmurs. No heaves. ABDOMEN: Nontender. Soft. No masses. Rare bowel sounds. EXTREMITIES: Without clubbing, cyanosis, edema. IV catheter appropriate. LABORATORY DATA: Blood cultures, no growth final. Stool specimen in process. C. diff assay was nonreactive. His white blood cell count 18.6 on admission, viral to 21.4 following morning, 10.0 today; hemoglobin 15.9, platelets 252, differential is normal. Chemistry panel normal except for a sodium of 136 and phosphorus 4.9. Liver function tests normal including albumin of 3.7. His urinalysis, no evidence of infection. RADIOLOGY DATA: CT of the abdomen and pelvis on the and again on the 16 demonstrates small pleural effusions, 2 cm renal cysts, sigmoid colon wall thickening and diverticula with diverticulitis, some free air, small gas and fluid collections in the right hemipelvis and several fluid collections. ASSESSMENT: 1. Acute diverticulitis with abscess, resolving, but still with ongoing pain, though that also is resolving. Suspicion for multidrug resistant pathogens as well. Discussed with the patient that the gentamicin is very unlikely to provide synergistic activity and has potential for nephrotoxicity, which occasionally can be permanent even if closely monitored. 2. Hypertension, no renal dysfunction. 3. Leukocytosis because of #1, also fever because of #1, both resolved. RECOMMENDATIONS: 1. Continue piperacillin. Stop gentamicin. 2. Oral therapy once his pain and oral intake substantially improve. 3. For his antibiotic associated diarrhea, use Florastor and p.r.n. loperamide. 4. Surgery also following. Thank you very much for asking me to see him. SABRINA LEDEZMA M.D.
[2020-03-07 18:25] LABS: Glucose Point of Care 124 (65-105)
[2020-03-07 19:31] VITALS: BP 149/90; PULSE 68; RESP 18; TEMP 36.3; O2SAT 96
[2020-03-07] MEDS: SACCHAROMYCES BOULARDII 250 MG CAPSULE PO (21:27)
[2020-03-07] MEDS: MONTELUKAST SODIUM 10 MG TABLET PO (21:27)
[2020-03-07 23:41] LABS: Glucose Point of Care 118 (65-105)
[2020-03-08] MEDS: HYDROMORPHONE HCL 1 MG/ML INJ IV PUSH (02:17)
[2020-03-08 05:47] VITALS: BP 137/82; PULSE 58; RESP 14; TEMP 36.4; O2SAT 93
[2020-03-08 06:08] LABS: Glucose Point of Care 133 (65-105)
[2020-03-08 06:28] LABS: Blood Urea Nitrogen 17 mg/dL (9-20); Calcium 9.4 mg/dL (8.4-10.2); Carbon Dioxide 31 mmol/L (22-30); Chloride 98 mmol/L (98-107); Estimated CRCL calculation 64 ml/min; Estimated Glomerular Filt Rate > 60; Glucose 110 mg/dL (75-110); Magnesium 2.2 mg/dL (1.6-2.3); Phosphorus 5.3 mg/dL (2.5-4.5); Sodium 136 mmol/L (137-145)
[2020-03-08] MEDS: POTASSIUM CHLORIDE 20 MEQ TABLET.ER PO ×2 (09:24→17:11)
[2020-03-08] MEDS: SACCHAROMYCES BOULARDII 250 MG CAPSULE PO ×2 (09:24→20:34)
[2020-03-08] MEDS: AMLODIPINE BESYLATE 5 MG TABLET 10 MG PO (09:24)
--- NOTE | 2020-03-08 09:41 | PM.PNGS ---
Progress Note: A&P Assessment and Plan (1) Diverticulitis of intestine with perforation without abscess: Qualifiers: Diverticulitis site: large intestine Diverticulitis bleeding: without bleeding Qualified Code(s): K57.20 - Diverticulitis of large intestine with perforation and abscess without bleeding Code(s): K57.80 - Diverticulitis of intestine, part unspecified, with perforation and abscess without bleeding Status: Acute Assessment and Plan: Continuing to gradually improve. Appreciate ID input. Will advance diet to full liquids today. Discussed with patient about following up as outpatient. Discussed considering elective colon resection in the future to prevent recurrences. Subjective Subjective Date/Time Seen: 03/08/20 09:41 Interval history: Gradually feeling better. No fevers. Pain decreasing, down to a 2 this AM. Bowels a little more solid. Exam GI: Other: Mildly distended, lowe abdominal pain without rebound or guarding Objective Data Vital Signs Vital Signs: Vital Signs - 24 hr 03/07/20 14:31 03/07/20 19:31 03/08/20 05:47 Temperature 36.3 C L 36.3 C L 36.4 C Pulse Rate 71 68 58 L Respiratory Rate 16 18 14 Blood Pressure 127/68 149/90 H 137/82 Pulse Oximetry 98 96 93 Intake/Output Intake/Output: Intake & Output 03/05/20 03/06/20 03/07/20 03/08/20 23:59 23:59 23:59 23:59 Intake Total 3670.75 1900.75 2880 1220 Output Total 100 600 700 225 Balance 3570.75 1300.75 2180 995 Meds/Results Medications: Active Medications Generic Name Dose Route Start Last Admin Trade Name Freq PRN Reason Stop Dose Admin Acetaminophen 1,000 mg 03/03/20 15:00 03/08/20 09:24 Tylenol Tablet PO Not Given Q6H SONIYA Albuterol 2 puff 03/01/20 12:20 Proventil Hfa INHALATION DAILY PRN Shortness Of Breath Or Wheezing Amlodipine Besylate 10 mg 03/03/20 09:00 03/08/20 09:24 Norvasc PO 10 mg QAM SONIYA Administration Dextrose 12.5 gm 03/06/20 19:07 Dextrose 50% Syringe IV PUSH PRN PRN Hypoglycemia Protocol Glucagon 1 mg 03/06/20 19:07 Glucagon For Inj IM PRN PRN Hypoglycemia Protocol Glucose 15 gm 03/06/20 19:07 Glutose 15 PO PRN PRN Hypoglycemia Protocol Hydralazine HCl 10 mg 03/01/20 12:25 Apresoline Hcl Inj IV PUSH Q8H PRN systolic >175 Hydromorphone HCl 1 mg 03/01/20 09:17 03/08/20 02:17 Dilaudid Inj IV PUSH 1 mg Q2H PRN Administration Pain Rated 7-10 Hydromorphone HCl 0.5 mg 03/06/20 10:35 03/07/20 01:05 Dilaudid Inj IV PUSH 0.5 mg Q2H PRN Administration Pain Rated 7-10 Piperacillin/Tazobactam/Dextrose 3.375 gm in 50 mls @ 100 mls/hr 03/01/20 00:00 03/08/20 06:25 Zosyn 3.375 Gm/D5w 50ml Pm IVPB Infused Q6H SONIYA Infusion Dextrose 1,000 mls @ 50 mls/hr 03/06/20 10:41 Dextrose 10% IV CONT .Q20H PRN if PN is interrupted Dextrose 1,000 mls @ 100 mls/hr 03/06/20 19:07 Dextrose 5% 1,000 Ml IVPB PRN PRN Hypoglycemia Protocol Loperamide HCl 2 mg 03/07/20 13:24 03/07/20 16:36 Loperamide Hcl PO 2 mg PRN PRN Administration Diarrhea Montelukast Sodium 10 mg 03/03/20 22:55 03/07/20 21:27 Singulair PO 10 mg HS SONIYA Administration Ondansetron HCl 4 mg 03/02/20 18:05 03/06/20 23:43 Zofran Inj IV PUSH 4 mg Q6H PRN Administration Nausea And Vomiting Potassium Chloride 20 meq 03/05/20 17:00 03/08/20 09:24 Kcl Tablet PO 20 meq BIDWM SONIYA Administration Saccharomyces Boulardii 250 mg 03/07/20 21:00 03/08/20 09:24 Florastor PO 250 mg Q12HR SONIYA Administration Radiology Results: ITS Impressions Abdomen X-Ray 03/01/20 13:20 IMPRESSION: Nonspecific abdomen Abdomen/Pelvis CT 03/04/20 17:21 IMPRESSION: 1. Perforated sigmoid diverticulitis with free intraperitoneal gas as well as a couple small gas and fluid collections wit
--- NOTE | 2020-03-08 11:45 | PCNFU ---
Nutrition Follow-Up Complete: Altered GI fxn as related to diverticulitis as related to NPO/Clear liquids x 7 days. Meet estimated nutritional needs Progressing towards goal. We will continue current goal. Pt current nutrition is full liquids. Nutrition recommendation: low fiber Last recorded weight is 85.6 kg. Bowel Motility:+BM reported 03/07 Labs Reviewed:Na 136,PO4 5.3 Meds Noted: KCL Additional Notes: Spoke with nursing and patient over telephone today due to COVID 19 precautions. Consult for Low fiber/high fiber education. All questions and concerns answered at this time. Patient states to tolerating clear liquids for breakfast, he will advance to full liquids today. PPN has been discontinued. Patient Instructions attached for low fiber then advancing to high fiber in 2 wks. Thank you for the consult. Monitoring: Will monitor every 7 days.
--- NOTE | 2020-03-08 13:39 | WPDINFPN2 ---
Progress Note: A&P Assessment and Plan (1) Diverticulitis: Code(s): K57.92 - Diverticulitis of intestine, part unspecified, without perforation or abscess without bleeding Status: Acute Assessment and Plan: IP 1. Diverticular abscess, no + micro, slow improvement though still with pain 2. Antibiotic associated diarrhea, C diff infection is unlikely REC PipTazo #8, can convert to oral therapy once he is no longer requiring IV analgesics. He should then get on Augmentin through 03/14/20. Continue florastor and loperamide. Subjective Date/time seen: 03/08/20 13:39 Interval history: pain about the same. BMs loose, not watery, now. Clear liquids Exam Narrative: Exam Narrative: afebrile. Appears mildly ill Const: General: comfortable and no acute distress Resp: Effort & Inspection: normal respiratory effort Auscultation: clear to auscultation bilaterally Cardio: Rate: regular rate Rhythm: regular rhythm Heart sounds: no gallops and no murmurs Other: split s2 GI: Inspection: non-distended GI Palp: Yes Firmness to palpation present (GI), Yes Tenderness to palpation present (GI) and No Guarding due to palpation present (GI) Auscultation: abnormal bowel sounds Other: LLQ > RLQ Objective Data Vital Signs Vital Signs: Vital Signs - 24 hr 03/07/20 14:31 03/07/20 19:31 03/08/20 05:47 Temperature 36.3 C L 36.3 C L 36.4 C Pulse Rate 71 68 58 L Respiratory Rate 16 18 14 Blood Pressure 127/68 149/90 H 137/82 Pulse Oximetry 98 96 93 Intake/Output Intake/Output: Intake & Output 03/05/20 03/06/20 03/07/20 03/08/20 23:59 23:59 23:59 23:59 Intake Total 3670.75 1900.75 2880 3315 Output Total 100 600 700 225 Balance 3570.75 1300.75 2180 3090 Meds/Results Medications: Active Medications Generic Name Dose Route Start Last Admin Trade Name Freq PRN Reason Stop Dose Admin Acetaminophen 1,000 mg 03/03/20 15:00 03/08/20 09:24 Tylenol Tablet PO Not Given Q6H SONIYA Albuterol 2 puff 03/01/20 12:20 Proventil Hfa INHALATION DAILY PRN Shortness Of Breath Or Wheezing Amlodipine Besylate 10 mg 03/03/20 09:00 03/08/20 09:24 Norvasc PO 10 mg QAM SONIYA Administration Dextrose 12.5 gm 03/06/20 19:07 Dextrose 50% Syringe IV PUSH PRN PRN Hypoglycemia Protocol Glucagon 1 mg 03/06/20 19:07 Glucagon For Inj IM PRN PRN Hypoglycemia Protocol Glucose 15 gm 03/06/20 19:07 Glutose 15 PO PRN PRN Hypoglycemia Protocol Hydralazine HCl 10 mg 03/01/20 12:25 Apresoline Hcl Inj IV PUSH Q8H PRN systolic >175 Hydromorphone HCl 1 mg 03/01/20 09:17 03/08/20 02:17 Dilaudid Inj IV PUSH 1 mg Q2H PRN Administration Pain Rated 7-10 Hydromorphone HCl 0.5 mg 03/06/20 10:35 03/07/20 01:05 Dilaudid Inj IV PUSH 0.5 mg Q2H PRN Administration Pain Rated 7-10 Piperacillin/Tazobactam/Dextrose 3.375 gm in 50 mls @ 100 mls/hr 03/01/20 00:00 03/08/20 11:32 Zosyn 3.375 Gm/D5w 50ml Pm IVPB 100 mls/hr Q6H SONIYA Administration Dextrose 1,000 mls @ 50 mls/hr 03/06/20 10:41 Dextrose 10% IV CONT .Q20H PRN if PN is interrupted Dextrose 1,000 mls @ 100 mls/hr 03/06/20 19:07 Dextrose 5% 1,000 Ml IVPB PRN PRN Hypoglycemia Protocol Loperamide HCl 2 mg 03/07/20 13:24 03/07/20 16:36 Loperamide Hcl PO 2 mg PRN PRN Administration Diarrhea Montelukast Sodium 10 mg 03/03/20 22:55 03/07/20 21:27 Singulair PO 10 mg HS SONIYA Administration Ondansetron HCl 4 mg 03/02/20 18:05 03/06/20 23:43 Zofran Inj IV PUSH 4 mg Q6H PRN Administration Nausea And Vomiting Potassium Chloride 20 meq 03/05/20 17:00 03/08/20 09:24 Kcl Tablet PO 20 meq BIDWM SONIYA Administration Saccharomyces Boulardii 250 mg 03/07/20 21:00 03/08/20 09:24 Florastor PO 250 mg Q12HR SONIYA Administration Radiology Results: ITS Impression
--- NOTE | 2020-03-08 13:48 | PM.IMPN ---
Progress Note: A&P Assessment and Plan (1) Diverticulitis: Code(s): K57.92 - Diverticulitis of intestine, part unspecified, without perforation or abscess without bleeding Status: Acute Assessment and Plan: Patient slowly making improvement. General surgery following - appreciate recommendations. Full liquid diet today. Continue IV antibiotics with IV Zosyn (day 8) per Dr Andrew's recommendations - appreciate input. Florastor and loperamide added for antibiotic-associated diarrhea with c diff negative. (2) HTN (hypertension) with goal to be determined: Code(s): I10 - Essential (primary) hypertension Status: Chronic Assessment and Plan: Last 137/. Home felodipine is nonformulary, continue Norvasc here. Monitor BP. Subjective Date/time seen: 03/08/20 13:30 Interval history: Mr. Carrington is a 54yo M admitted for diverticulitis. He is feeling a little better than yesterday and slowly making improvements. He has tolerated two full-liquid trays today and notes he is feeling bloated; rates his lower abdominal pain 2/10; no nausea or vomiting; bowel movements more formed today. No chest pain or shortness of breath. Review of Systems Review of Systems: Narrative: Twelve systems were reviewed with pertinent positives and negatives as per HPI. Except as documented, all other systems were reviewed and are negative. Exam Narrative: Exam Narrative: General: Male resting comfortably in bed in no acute distress. HEENT: Normocephalic, EOMI, oral mucosa moist. Cardiovascular: Rate and rhythm are regular. Respiratory: Lungs clear to auscultation all rodríguez. Tolerating room air. Abdomen: Slightly distended but soft, mild tenderness to palpation of lower abdomen, bowel sounds present. Extremities: Peripheral pulses intact. No edema. Neuro: No focal neurological deficits. Speech is clear. Objective Data Vital Signs Vital Signs: Last Vital Signs Temp 97.6 F 03/08/20 05:47 Pulse 58 L 03/08/20 05:47 Resp 14 03/08/20 05:47 BP 137/82 05/20/20 05:47 Pulse Ox 93 03/08/20 05:47 Intake/Output Intake/Output: Intake & Output 03/05/20 03/06/20 03/07/20 03/08/20 23:59 23:59 23:59 23:59 Intake Total 3670.75 1900.75 2880 3315 Output Total 100 600 700 225 Balance 3570.75 1300.75 2180 3090 Meds/Results Medications: Active Medications Generic Name Dose Route Start Last Admin Trade Name Freq PRN Reason Stop Dose Admin Acetaminophen 1,000 mg 03/03/20 15:00 03/08/20 09:24 Tylenol Tablet PO Not Given Q6H SONIYA Albuterol 2 puff 03/01/20 12:20 Proventil Hfa INHALATION DAILY PRN Shortness Of Breath Or Wheezing Amlodipine Besylate 10 mg 03/03/20 09:00 03/08/20 09:24 Norvasc PO 10 mg QAM SONIYA Administration Dextrose 12.5 gm 03/06/20 19:07 Dextrose 50% Syringe IV PUSH PRN PRN Hypoglycemia Protocol Glucagon 1 mg 03/06/20 19:07 Glucagon For Inj IM PRN PRN Hypoglycemia Protocol Glucose 15 gm 03/06/20 19:07 Glutose 15 PO PRN PRN Hypoglycemia Protocol Hydralazine HCl 10 mg 03/01/20 12:25 Apresoline Hcl Inj IV PUSH Q8H PRN systolic >175 Hydromorphone HCl 1 mg 03/01/20 09:17 03/08/20 02:17 Dilaudid Inj IV PUSH 1 mg Q2H PRN Administration Pain Rated 7-10 Hydromorphone HCl 0.5 mg 03/06/20 10:35 03/07/20 01:05 Dilaudid Inj IV PUSH 0.5 mg Q2H PRN Administration Pain Rated 7-10 Piperacillin/Tazobactam/Dextrose 3.375 gm in 50 mls @ 100 mls/hr 03/01/20 00:00 03/08/20 11:32 Zosyn 3.375 Gm/D5w 50ml Pm IVPB 100 mls/hr Q6H SONIYA Administration Dextrose 1,000 mls @ 50 mls/hr 03/06/20 10:41 Dextrose 10% IV CONT .Q20H PRN if PN is interrupted Dextrose 1,000 mls @ 100 mls/hr 03/06/20 19:07 Dextrose 5% 1,000 Ml IVPB PRN PRN Hypoglycemia Protocol
[2020-03-08 14:00] VITALS: BP 128/74; PULSE 60; RESP 16; TEMP 36.8; O2SAT 97
[2020-03-08 19:23] VITALS: BP 133/85; PULSE 75; RESP 16; TEMP 36.4; O2SAT 98
[2020-03-08] MEDS: MONTELUKAST SODIUM 10 MG TABLET PO (20:34)
[2020-03-09 05:58] VITALS: BP 136/84; PULSE 67; RESP 18; TEMP 36.6; O2SAT 97
[2020-03-09 06:29] LABS: Basophils Absolute Auto 0.1 K/mm3 (0.0-0.1); Basophils Percent Auto 0.7 % (0.2-1.2); Eosinophils Absolute Auto 0.2 K/mm3 (0-0.3); Eosinophils Percent Auto 1.4 % (0-4.4); Hematocrit 54.9 % (42.0-52.0); Hemoglobin 18.1 g/dL (14.0-18.0); Immature Granulocyte Absolute 0.15 K/mm3 (0.00-0.031); Immature Granulocyte Percent A 1.4 % (0-0.5); Lymphocytes Absolute Auto 1.35 K/mm3 (0.9-3.2); Lymphocytes Percent Auto 12.8 % (18.3-44.2); Mean Corpuscular Hemoglobin 29.4 pg (26-34); Mean Corpuscular Volume 89.3 fl (80-100); Mean Platelet Volume 10.2 fl (7.4-10.4); Monocytes Absolute Auto 0.6 K/mm3 (0.1-0.6); Monocytes Percent Auto 6.1 % (2.6-8.5); Neutrophils Absolute Auto 8.2 K/mm3 (1.3-6.7); Neutrophils Percent Auto 77.6 % (45.5-73.1); Platelet Count Result 305 k/mm3 (150-375); Red Blood Count 6.15 M/mm3 (4.6-6.20); Red Cell Distribution Width 12.9 % (11.5-14.5); White Blood Count 10.5 K/mm3 (4.5-10.0)
[2020-03-09 06:42] LABS: Alanine Aminotransferase 36 U/L (4-50); Alkaline Phosphatase 69 U/L (38-126); Aspartate Amino Transferase 40 U/L (17-59); Bilirubin,Total 0.5 mg/dL (0.2-1.3); Blood Urea Nitrogen 17 mg/dL (9-20); Calcium 9.3 mg/dL (8.4-10.2); Carbon Dioxide 33 mmol/L (22-30); Chloride 96 mmol/L (98-107); Estimated CRCL calculation 55 ml/min; Estimated Glomerular Filt Rate > 60; Glucose 108 mg/dL (75-110); Magnesium 2.3 mg/dL (1.6-2.3); Phosphorus 3.9 mg/dL (2.5-4.5); Potassium 4.1 mmol/L (3.4-5.0); Sodium 135 mmol/L (137-145); Triglycerides 93 mg/dL (<150)
[2020-03-09] MEDS: SODIUM CHLORIDE 0.9% IV 1,000 ML 100 ML IV CONT ×2 (08:04→18:11)
[2020-03-09] MEDS: SACCHAROMYCES BOULARDII 250 MG CAPSULE PO ×2 (08:04→20:09)
[2020-03-09] MEDS: POTASSIUM CHLORIDE 20 MEQ TABLET.ER PO ×2 (08:04→17:17)
[2020-03-09] MEDS: AMLODIPINE BESYLATE 5 MG TABLET 10 MG PO (08:04)
--- NOTE | 2020-03-09 10:55 | PM.PNGS ---
Progress Note: A&P Assessment and Plan (1) Diverticulitis of intestine with perforation without abscess: Qualifiers: Diverticulitis bleeding: without bleeding Diverticulitis site: large intestine Qualified Code(s): K57.20 - Diverticulitis of large intestine with perforation and abscess without bleeding Code(s): K57.80 - Diverticulitis of intestine, part unspecified, with perforation and abscess without bleeding Status: Acute Assessment and Plan: WBC 10,500 today and he remains afebrile. Reportedly having some mild nausea this morning. Abdominal pain and bloating is similar to yesterday. His abdominal tenderness seems to be slowly improving. Will advance to a soft diet. May consider repeating a CT scan abd/pelvis tomorrow if he does not continue to progress as expected. Continue IV antibiotics. Appreciate ID recommendations. Additional Plan Discussed the plan of care with Dr. Richter. Subjective Subjective Date/Time Seen: 03/09/20 09:55 Patient reports: still having pain, flatus, bowel movement and nausea Interval history: Patient reports having some mild nausea through the night and this morning. He reports abdominal pain is mild at 3/10, no change since yesterday. Flatus and BM this morning. States his BMs are becoming more formed. Still feeling bloated. Denies vomiting. Feeling tired today. No other complaints at this time. Review of Systems Review of Systems: All systems reviewed & are unremarkable except as noted in HPI and below Constitutional: Constitutional: Denies chills and Denies fever(s) Exam Const: General: comfortable, no acute distress, alert and awake Orientation/consciousness: patient oriented x3 GI: Inspection: other (mildly distended) GI Palp: Yes Soft to palpation, Yes Tenderness to palpation present (GI) (lower abdominal tenderness, worse in LLQ), No Guarding due to palpation present (GI) and No Rebound tenderness present Auscultation: normal bowel sounds Skin: General skin exam: normal color Neuro: General: moves all extremities and no focal motor deficits Extrem: General: normal to inspection and no edema Psych: Appearance: grossly normal Mental Status: mental status grossly normal Affect: normal affect Attitude: cooperative Thought process: Normal thought process present Insight: Good insight present (Psych) Judgement: Good judgement present (Psych) Objective Data Vital Signs Vital Signs: Vital Signs - 24 hr 03/08/20 14:00 03/08/20 19:23 03/09/20 05:58 Temperature 36.8 C 36.4 C L 36.6 C Pulse Rate 60 75 67 Respiratory Rate 16 16 18 Blood Pressure 128/74 133/85 136/84 Pulse Oximetry 97 98 97 Intake/Output Intake/Output: Intake & Output 03/06/20 03/07/20 03/08/20 03/09/20 23:59 23:59 23:59 23:59 Intake Total 1900.75 2880 4445 690 Output Total 633 896 1288 625 Balance 1300.75 2180 3020 65 Meds/Results Medications: Active Medications Generic Name Dose Route Start Last Admin Trade Name Freq PRN Reason Stop Dose Admin Acetaminophen 1,000 mg 03/03/20 15:00 03/09/20 08:04 Tylenol Tablet PO Not Given Q6H SONIYA Albuterol 2 puff 03/01/20 12:20 Proventil Hfa INHALATION DAILY PRN Shortness Of Breath Or Wheezing Amlodipine Besylate 10 mg 03/03/20 09:00 03/09/20 08:04 Norvasc PO 10 mg QAM SONIYA Administration Dextrose 12.5 gm 03/06/20 19:07 Dextrose 50% Syringe IV PUSH PRN PRN Hypoglycemia Protocol Glucagon 1 mg 03/06/20 19:07 Glucagon For Inj IM PRN PRN Hypoglycemia Protocol Glucose 15 gm 03/06/20 19:07 Glutose 15 PO PRN PRN Hypoglycemia Protocol Hydralazine HCl 10 mg 03/01/20 12:25 Apresoline Hcl Inj IV PUSH Q8H PRN systolic >175 Hydromorphone HCl 1 mg 03/01/20 09:17 03/08/20 02:17 Dilaudid Inj IV PUSH 1 mg Q2H PRN Administration Pain Rated 7-10 Hydromorphone HCl 0.5 mg 03/06/20 10:35 03/07/20 01:05
[2020-03-09 14:00] VITALS: BP 139/89; PULSE 72; RESP 16; TEMP 36.2; O2SAT 99
--- NOTE | 2020-03-09 14:21 | PM.IMPN ---
Progress Note: A&P Assessment and Plan (1) Diverticulitis: Code(s): K57.92 - Diverticulitis of intestine, part unspecified, without perforation or abscess without bleeding Status: Acute Assessment and Plan: Patient slowly making improvement. General surgery following - appreciate recommendations. Full liquid diet today. Continue IV antibiotics with IV Zosyn (day 9) per Dr Andrew's recommendations - appreciate input. Florastor and loperamide added for antibiotic-associated diarrhea with c diff negative. (2) HTN (hypertension) with goal to be determined: Code(s): I10 - Essential (primary) hypertension Status: Chronic Assessment and Plan: Stable, last BP 136/84. Home felodipine is nonformulary, continue Norvasc here. Monitor BP. (3) Acute renal failure: Code(s): N17.9 - Acute kidney failure, unspecified Status: Acute Assessment and Plan: Mild, Cr slowly rising after coming off clinimix while advancing diet. Suspect secondary to low oral intake. Start back on IV fluids for now and trend renal function. Subjective Date/time seen: 03/09/20 1330 Interval history: Mr. Carrington is a 54yo M admitted for diverticulitis. He is feeling about the same as yesterday and slowly making improvements. Diet is advanced to soft and he has tolerated some meatloaf and mashed potatoes for lunch. He describes some abdominal bloating without nausea or vomiting, rates his lower abdominal pain 2/10 currently. He denies chest pain or shortness of breath. Review of Systems Review of Systems: Narrative: Twelve systems were reviewed with pertinent positives and negatives as per HPI. Exam Narrative: Exam Narrative: General: Male resting comfortably in bed in no acute distress. HEENT: Normocephalic, EOMI, oral mucosa moist. Cardiovascular: Rate and rhythm are regular. Respiratory: Lungs clear to auscultation all rodríguez. Tolerating room air. Abdomen: Mildly distended but soft, mild tenderness to palpation of lower abdomen, bowel sounds present. Extremities: Peripheral pulses intact. No edema. Neuro: No focal neurological deficits. Speech is clear. Objective Data Vital Signs Vital Signs: Last Vital Signs Temp 97.8 F 03/09/20 05:58 Pulse 67 03/09/20 05:58 Resp 18 03/09/20 05:58 BP 136/84 03/09/20 05:58 Pulse Ox 97 03/09/20 05:58 Intake/Output Intake/Output: Intake & Output 03/06/20 03/07/20 03/08/20 03/09/20 23:59 23:59 23:59 23:59 Intake Total 1900.75 2880 4445 690 Output Total 491 134 1087 625 Balance 1300.75 2180 3020 65 Meds/Results Medications: Active Medications Generic Name Dose Route Start Last Admin Trade Name Freq PRN Reason Stop Dose Admin Acetaminophen 1,000 mg 03/03/20 15:00 03/09/20 11:39 Tylenol Tablet PO Not Given Q6H SONIYA Albuterol 2 puff 03/01/20 12:20 Proventil Hfa INHALATION DAILY PRN Shortness Of Breath Or Wheezing Amlodipine Besylate 10 mg 03/03/20 09:00 03/09/20 08:04 Norvasc PO 10 mg QAM SONIYA Administration Dextrose 12.5 gm 03/06/20 19:07 Dextrose 50% Syringe IV PUSH PRN PRN Hypoglycemia Protocol Glucagon 1 mg 03/06/20 19:07 Glucagon For Inj IM PRN PRN Hypoglycemia Protocol Glucose 15 gm 03/06/20 19:07 Glutose 15 PO PRN PRN Hypoglycemia Protocol Hydralazine HCl 10 mg 03/01/20 12:25 Apresoline Hcl Inj IV PUSH Q8H PRN systolic >175 Hydromorphone HCl 1 mg 03/01/20 09:17 03/08/20 02:17 Dilaudid Inj IV PUSH 1 mg Q2H PRN Administration Pain Rated 7-10 Hydromorphone HCl 0.5 mg 03/06/20 10:35 03/07/20 01:05 Dilaudid Inj IV PUSH 0.5 mg Q2H PRN Administration Pain Rated 7-10 Piperacillin/Tazobactam/Dextrose 3.375 gm in 50 mls @ 100 mls/hr 03/01/20 00:00 03/09/20 11:31 Zosyn 3.375 Gm/D5w 50ml
--- NOTE | 2020-03-09 15:57 | PCRCNOTE ---
PT SAYS HE DOES NOT WANT TO WEAR OUR CPAP. HE SAYS IT PUTS AIR IN HIS STOMACH THEN HE DOES NOT FEEL WELL.
[2020-03-09 19:44] VITALS: PULSE 74; RESP 16; TEMP 36.7; O2SAT 96
[2020-03-09] MEDS: MONTELUKAST SODIUM 10 MG TABLET PO (20:09)
[2020-03-09] MEDS: ACETAMINOPHEN 500 MG TABLET 1000 MG PO (21:25)
--- NOTE | 2020-03-09 21:26 | PC.NURSE ---
Pt took scheduled tylenol for joint pain, tummy is feeling A-ok with the soft diet.
[2020-03-10] MEDS: SODIUM CHLORIDE 0.9% IV 1,000 ML 100 ML IV CONT (04:39)
[2020-03-10 05:17] VITALS: BP 137/81; RESP 18; TEMP 36.6; O2SAT 95
[2020-03-10 05:55] LABS: Hematocrit 51.7 % (42.0-52.0); Mean Corpuscular HGB Conc 32.9 g/dl (32-36); Mean Corpuscular Hemoglobin 29.3 pg (26-34); Mean Platelet Volume 10.1 fl (7.4-10.4); Platelet Count Result 311 k/mm3 (150-375); Red Blood Count 5.81 M/mm3 (4.6-6.20); Red Cell Distribution Width 12.6 % (11.5-14.5); White Blood Count 8.8 K/mm3 (4.5-10.0)
[2020-03-10 06:37] LABS: Blood Urea Nitrogen 17 mg/dL (9-20); Calcium 8.9 mg/dL (8.4-10.2); Carbon Dioxide 28 mmol/L (22-30); Chloride 99 mmol/L (98-107); Estimated CRCL calculation 59 ml/min; Estimated Glomerular Filt Rate > 60; Glucose 110 mg/dL (75-110); Phosphorus 3.5 mg/dL (2.5-4.5); Potassium 3.9 mmol/L (3.4-5.0); Sodium 135 mmol/L (137-145)
[2020-03-10] MEDS: AMLODIPINE BESYLATE 5 MG TABLET 10 MG PO (08:15)
[2020-03-10] MEDS: POTASSIUM CHLORIDE 20 MEQ TABLET.ER PO ×2 (08:15→17:18)
[2020-03-10] MEDS: SACCHAROMYCES BOULARDII 250 MG CAPSULE PO ×2 (08:16→20:06)
[2020-03-10 08:19] VITALS: RESP 18; O2SAT 94
[2020-03-10] MEDS: ACETAMINOPHEN 500 MG TABLET 1000 MG PO (08:19)
--- NOTE | 2020-03-10 10:26 | PM.IMPN ---
Progress Note: A&P Assessment and Plan (1) Diverticulitis: Code(s): K57.92 - Diverticulitis of intestine, part unspecified, without perforation or abscess without bleeding Status: Acute Assessment and Plan: Patient slowly making improvement. General surgery following - appreciate recommendations. Low residue diet today. Continue IV antibiotics with IV Zosyn (day 10) per Dr Andrew's recommendations - appreciate input. Diarrhea resolved. Anticipate possible discharge tomorrow and will transition to oral antibiotic coverage at that time. (2) HTN (hypertension) with goal to be determined: Code(s): I10 - Essential (primary) hypertension Status: Chronic Assessment and Plan: Stable, last BP 137/81. Home felodipine is nonformulary, continue Norvasc here. Monitor BP. (3) Acute renal failure: Code(s): N17.9 - Acute kidney failure, unspecified Status: Acute Assessment and Plan: Improved with IV hydration. Stop IV fluids this afternoon and encourage oral intake. Subjective Date/time seen: 03/10/20 0945 Interval history: Mr. Carrington is a 54yo M admitted for diverticulitis. He is feeling about the same as yesterday and slowly making improvements. He is tolerating a low residue diet today; abdominal bloating is unchanged and he denies any increased abdominal pain, nausea or vomiting. He denies any chest pain or shortness of breath. Review of Systems Review of Systems: Narrative: Twelve systems were reviewed with pertinent positives and negatives as per HPI. Exam Narrative: Exam Narrative: General: Male resting comfortably in bed in no acute distress. HEENT: Normocephalic, EOMI, oral mucosa moist. Cardiovascular: Rate and rhythm are regular. Respiratory: Lungs clear to auscultation all rodríguez. Tolerating room air. Abdomen: Mildly distended but soft, mild tenderness to palpation of lower abdomen, bowel sounds present. Extremities: Peripheral pulses intact. No edema. Neuro: No focal neurological deficits. Speech is clear. Objective Data Vital Signs Vital Signs: Last Vital Signs Temp 97.8 F 03/10/20 05:17 Pulse 74 03/09/20 19:44 Resp 18 03/10/20 08:19 BP 137/81 03/10/20 05:17 Pulse Ox 94 03/10/20 08:19 Intake/Output Intake/Output: Intake & Output 03/07/20 03/08/20 03/09/20 03/10/20 23:59 23:59 23:59 23:59 Intake Total 2880 4445 2305 1545 Output Total 700 1425 625 975 Balance 2180 3020 1680 570 Meds/Results Medications: Active Medications Generic Name Dose Route Start Last Admin Trade Name Freq PRN Reason Stop Dose Admin Acetaminophen 1,000 mg 03/10/20 09:49 Tylenol Tablet PO Q6H PRN Pain Rated 5 or Less Albuterol 2 puff 03/01/20 12:20 Proventil Hfa INHALATION DAILY PRN Shortness Of Breath Or Wheezing Amlodipine Besylate 10 mg 03/03/20 09:00 03/10/20 08:15 Norvasc PO 10 mg QAM SONIYA Administration Dextrose 12.5 gm 03/06/20 19:07 Dextrose 50% Syringe IV PUSH PRN PRN Hypoglycemia Protocol Glucagon 1 mg 03/06/20 19:07 Glucagon For Inj IM PRN PRN Hypoglycemia Protocol Glucose 15 gm 03/06/20 19:07 Glutose 15 PO PRN PRN Hypoglycemia Protocol Hydralazine HCl 10 mg 03/01/20 12:25 Apresoline Hcl Inj IV PUSH Q8H PRN systolic >175 Hydromorphone HCl 0.5 mg 03/06/20 10:35 03/07/20 01:05 Dilaudid Inj IV PUSH 0.5 mg Q2H PRN Administration Pain Rated 7-10 Piperacillin/Tazobactam/Dextrose 3.375 gm in 50 mls @ 100 mls/hr 03/01/20 00:00 03/10/20 05:40 Zosyn 3.375 Gm/D5w 50ml Pm IVPB Infused Q6H SONIYA Infusion Dextrose 1,000 mls @ 50 mls/hr 03/06/20 10:41 Dextrose 10% IV CONT .Q20H PRN if PN is interrupted Dextrose 1,000 mls @ 100 mls/hr 03/06/20 19:07 Dextrose 5% 1,000 Ml IVPB PRN
--- NOTE | 2020-03-10 11:17 | PM.PNGS ---
Progress Note: A&P Assessment and Plan (1) Diverticulitis of intestine with perforation without abscess: Qualifiers: Diverticulitis site: large intestine Diverticulitis bleeding: without bleeding Qualified Code(s): K57.20 - Diverticulitis of large intestine with perforation and abscess without bleeding Code(s): K57.80 - Diverticulitis of intestine, part unspecified, with perforation and abscess without bleeding Status: Acute Assessment and Plan: Miralax dose today OK to discharge from surgical standpoint once patient is tolerating low fiber diet Will need a follow up CT in 2 weeks and follow up with me after CT Continue antibiotics 5-7 more days Subjective Subjective Date/Time Seen: 03/10/20 11:17 Minimal pain. No nausea. Just slightly bloated. No fevers. Exam GI: Inspection: normal to inspection GI Palp: Yes Soft to palpation, No Tenderness to palpation present (GI), No Guarding due to palpation present (GI) and No Rebound tenderness present Percussion: Yes normal to percussion Auscultation: normal bowel sounds Objective Data Vital Signs Vital Signs: Vital Signs - 24 hr 03/09/20 14:00 03/09/20 19:44 03/10/20 05:17 Temperature 36.2 C L 36.7 C 36.6 C Pulse Rate 72 74 Respiratory Rate 16 16 18 Blood Pressure 139/89 137/81 Pulse Oximetry 99 96 95 03/10/20 08:19 Temperature Pulse Rate Respiratory Rate 18 Blood Pressure Pulse Oximetry 94 Intake/Output Intake/Output: Intake & Output 03/07/20 03/08/20 03/09/20 03/10/20 23:59 23:59 23:59 23:59 Intake Total 2880 4445 2305 1545 Output Total 700 1425 625 975 Balance 2180 3020 1680 570 Meds/Results Medications: Active Medications Generic Name Dose Route Start Last Admin Trade Name Freq PRN Reason Stop Dose Admin Acetaminophen 1,000 mg 03/10/20 09:49 Tylenol Tablet PO Q6H PRN Pain Rated 5 or Less Albuterol 2 puff 03/01/20 12:20 Proventil Hfa INHALATION DAILY PRN Shortness Of Breath Or Wheezing Amlodipine Besylate 10 mg 03/03/20 09:00 03/10/20 08:15 Norvasc PO 10 mg QAM SONIYA Administration Dextrose 12.5 gm 03/06/20 19:07 Dextrose 50% Syringe IV PUSH PRN PRN Hypoglycemia Protocol Glucagon 1 mg 03/06/20 19:07 Glucagon For Inj IM PRN PRN Hypoglycemia Protocol Glucose 15 gm 03/06/20 19:07 Glutose 15 PO PRN PRN Hypoglycemia Protocol Hydralazine HCl 10 mg 03/01/20 12:25 Apresoline Hcl Inj IV PUSH Q8H PRN systolic >175 Hydromorphone HCl 0.5 mg 03/06/20 10:35 03/07/20 01:05 Dilaudid Inj IV PUSH 0.5 mg Q2H PRN Administration Pain Rated 7-10 Piperacillin/Tazobactam/Dextrose 3.375 gm in 50 mls @ 100 mls/hr 03/01/20 00:00 03/10/20 05:40 Zosyn 3.375 Gm/D5w 50ml Pm IVPB Infused Q6H SONIYA Infusion Dextrose 1,000 mls @ 50 mls/hr 03/06/20 10:41 Dextrose 10% IV CONT .Q20H PRN if PN is interrupted Dextrose 1,000 mls @ 100 mls/hr 03/06/20 19:07 Dextrose 5% 1,000 Ml IVPB PRN PRN Hypoglycemia Protocol Sodium Chloride 1,000 mls @ 100 mls/hr 03/09/20 07:45 03/10/20 04:39 Normal Saline Iv IV CONT 100 mls/hr .Q10H SONIYA Administration Loperamide HCl 2 mg 03/07/20 13:24 03/07/20 16:36 Loperamide Hcl PO 2 mg PRN PRN Administration Diarrhea Montelukast Sodium 10 mg 03/03/20 22:55 03/09/20 20:09 Singulair PO 10 mg HS SONIYA Administration Ondansetron HCl 4 mg 03/02/20 18:05 03/06/20 23:43 Zofran Inj IV PUSH 4 mg Q6H PRN Administration Nausea And Vomiting Potassium Chloride 20 meq 03/05/20 17:00 03/10/20 08:15 Kcl Tablet PO 20 meq BIDWM SONIYA Administration Saccharomyces Boulardii 250 mg 03/07/20 21:00 03/10/20 08:16 Florastor PO 250 mg Q12HR SONIYA Administration Radiology Results: ITS Impressions Abdomen X-Ray 03/01/20 13:20 IMPRESSION: Nonspecific abdomen
[2020-03-10] MEDS: polyethylene glycoL 3350 17 GM POWD.PACK PO (11:46)
[2020-03-10 14:00] VITALS: BP 125/79; PULSE 74; RESP 16; TEMP 36.8; O2SAT 100
--- NOTE | 2020-03-10 14:57 | WPDINFPN2 ---
Progress Note: A&P Assessment and Plan (1) Diverticulitis: Code(s): K57.92 - Diverticulitis of intestine, part unspecified, without perforation or abscess without bleeding Status: Acute Assessment and Plan: IP 1. Diverticular abscess, no + micro, slow improvement 2. Antibiotic associated diarrhea, C diff infection is unlikely REC PipTazo #10, can convert to oral therapy once he is no longer requiring IV analgesics. He should then get on Augmentin through 03/14/20. Continue florastor and loperamide. Ok home Subjective Date/time seen: 03/10/20 14:57 Interval history: no new complaints, pain under control Exam Const: General: no acute distress GI: Inspection: non-distended GI Palp: Yes Firmness to palpation present (GI), Yes Tenderness to palpation present (GI) and No Guarding due to palpation present (GI) Auscultation: abnormal bowel sounds Objective Data Vital Signs Vital Signs: Vital Signs - 24 hr 03/09/20 19:44 03/10/20 05:17 03/10/20 08:19 Temperature 36.7 C 36.6 C Pulse Rate 74 Respiratory Rate 16 18 18 Blood Pressure 137/81 Pulse Oximetry 96 95 94 Intake/Output Intake/Output: Intake & Output 03/07/20 03/08/20 03/09/20 03/10/20 23:59 23:59 23:59 23:59 Intake Total 2880 4445 2305 2265 Output Total 700 1425 625 975 Balance 2180 3020 1680 1290 Meds/Results Medications: Active Medications Generic Name Dose Route Start Last Admin Trade Name Freq PRN Reason Stop Dose Admin Acetaminophen 1,000 mg 03/10/20 09:49 Tylenol Tablet PO Q6H PRN Pain Rated 5 or Less Albuterol 2 puff 03/01/20 12:20 Proventil Hfa INHALATION DAILY PRN Shortness Of Breath Or Wheezing Amlodipine Besylate 10 mg 03/03/20 09:00 03/10/20 08:15 Norvasc PO 10 mg QAM SONIYA Administration Dextrose 12.5 gm 03/06/20 19:07 Dextrose 50% Syringe IV PUSH PRN PRN Hypoglycemia Protocol Glucagon 1 mg 03/06/20 19:07 Glucagon For Inj IM PRN PRN Hypoglycemia Protocol Glucose 15 gm 03/06/20 19:07 Glutose 15 PO PRN PRN Hypoglycemia Protocol Hydralazine HCl 10 mg 03/01/20 12:25 Apresoline Hcl Inj IV PUSH Q8H PRN systolic >175 Hydromorphone HCl 0.5 mg 03/06/20 10:35 03/07/20 01:05 Dilaudid Inj IV PUSH 0.5 mg Q2H PRN Administration Pain Rated 7-10 Piperacillin/Tazobactam/Dextrose 3.375 gm in 50 mls @ 100 mls/hr 03/01/20 00:00 03/10/20 12:15 Zosyn 3.375 Gm/D5w 50ml Pm IVPB Infused Q6H SONIYA Infusion Dextrose 1,000 mls @ 50 mls/hr 03/06/20 10:41 Dextrose 10% IV CONT .Q20H PRN if PN is interrupted Dextrose 1,000 mls @ 100 mls/hr 03/06/20 19:07 Dextrose 5% 1,000 Ml IVPB PRN PRN Hypoglycemia Protocol Loperamide HCl 2 mg 03/07/20 13:24 03/07/20 16:36 Loperamide Hcl PO 2 mg PRN PRN Administration Diarrhea Montelukast Sodium 10 mg 03/03/20 22:55 03/09/20 20:09 Singulair PO 10 mg HS SONIYA Administration Ondansetron HCl 4 mg 03/02/20 18:05 03/06/20 23:43 Zofran Inj IV PUSH 4 mg Q6H PRN Administration Nausea And Vomiting Polyethylene Glycol 17 gm 03/10/20 11:20 03/10/20 11:46 Miralax PO 17 gm QAM SONIYA Administration Potassium Chloride 20 meq 03/05/20 17:00 03/10/20 08:15 Kcl Tablet PO 20 meq BIDWM SONIYA Administration Saccharomyces Boulardii 250 mg 03/07/20 21:00 03/10/20 08:16 Florastor PO 250 mg Q12HR SONIYA Administration Radiology Results: ITS Impressions Abdomen X-Ray 03/01/20 13:20 IMPRESSION: Nonspecific abdomen Abdomen/Pelvis CT 03/04/20 17:21 IMPRESSION: 1. Perforated sigmoid diverticulitis with free intraperitoneal gas as well as a couple small gas and fluid collections without a well-defined organizing peterson in the right hemipelvis but concerning for progression towards abscesses. Labs Labs: Laboratory Results - last 24 hr 02/18
[2020-03-10 19:55] VITALS: BP 140/73; PULSE 68; RESP 18; TEMP 36.3; O2SAT 98
[2020-03-10] MEDS: MONTELUKAST SODIUM 10 MG TABLET PO (20:06)
[2020-03-11 06:00] VITALS: BP 107/87; PULSE 90; RESP 16; TEMP 36.6; O2SAT 98
[2020-03-11 07:20] LABS: Blood Urea Nitrogen 17 mg/dL (9-20); Calcium 9.6 mg/dL (8.4-10.2); Carbon Dioxide 28 mmol/L (22-30); Chloride 99 mmol/L (98-107); Estimated CRCL calculation 55 ml/min; Estimated Glomerular Filt Rate > 60; Glucose 122 mg/dL (75-110); Phosphorus 3.8 mg/dL (2.5-4.5); Potassium 4.1 mmol/L (3.4-5.0); Sodium 136 mmol/L (137-145)
[2020-03-11] MEDS: AMLODIPINE BESYLATE 5 MG TABLET 10 MG PO (08:39)
[2020-03-11] MEDS: SACCHAROMYCES BOULARDII 250 MG CAPSULE PO (08:39)
[2020-03-11] MEDS: POTASSIUM CHLORIDE 20 MEQ TABLET.ER PO (08:40)
[2020-03-11 08:46] VITALS: PULSE 94; RESP 16; O2SAT 98
--- NOTE | 2020-03-11 09:29 | PM.DS ---
DS: Admitting Diagnosis Admitting Diagnosis Admitting Diagnosis: Diverticulitis of intestine, part unspecified, without perforation or abscess without bleeding DS: Discharge Diagnosis Discharge Diagnosis (1) Diverticulitis: Code(s): K57.92 - Diverticulitis of intestine, part unspecified, without perforation or abscess without bleeding Status: Acute Assessment and Plan: Date of Service 03/11/20 Mr. Carrington is a 54yo M with history of hypertension who presented to the ED for evaluation of acute abdominal pain, nausea, and fever. CT abdomen/pelvis demonstrated acute sigmoid diverticulitis with microperforation. General surgery was consulted and he was evaluated by Dr Richter. His course was prolonged but fortunately did not require surgical intervention at this time. He was treated with IV Zosyn and other conservative measures including bowel rest, IV hydration, antiemetics, and analgesia. He was maintained on peripheral parenteral nutrition for a few days due to NPO status. His diet was very gradually advanced over several days. He did continue to have some discomfort and abdominal bloating but overall was much improved compared to arrival; diarrhea resolved. C diff was negative. Lekocytosis and fevers were resolved prior to discharge. He was hemodynamically stable for discharge 03/11/20 with oral antibiotics and instructions for repeat CT abdomen next week with short interval follow up with Dr Richter's office. He was tolerating a low-residue diet prior to discharge without increased pain, nausea, or diarrhea. Consultations: -- General Surgery - Dr Edenilson Richter -- Infectious Disease - Dr. Marcial Andrew (2) HTN (hypertension) with goal to be determined: Code(s): I10 - Essential (primary) hypertension Status: Chronic Assessment and Plan: Controlled. His home felodipine was nonformulary so he was maintained on Norvasc here. Resume his home regimen at discharge. DS: Summary Time Spent with Patient Time attestation: Total time spent providing and/or coordinating discharge services: Exam Narrative: Exam Narrative: Last Vital Signs Temp 97.8 F 03/11/20 06:00 Pulse 94 03/11/20 08:46 Resp 16 03/11/20 08:46 BP 107/87 03/11/20 06:00 Pulse Ox 98 03/11/20 08:46 General: Male resting comfortably in bed in no acute distress. HEENT: Normocephalic, EOMI, oral mucosa moist. Cardiovascular: Rate and rhythm are regular. Respiratory: Lungs clear to auscultation all rodríguez. Tolerating room air. Abdomen: Mildly distended but soft, mild tenderness to palpation of lower abdomen, bowel sounds present. Extremities: Peripheral pulses intact. No edema. Neuro: No focal neurological deficits. Speech is clear. DS: Data Imaging Radiologist's impression: ITS Impressions Abdomen/Pelvis CT 02/29/20 18:31 IMPRESSION: 1. Acute sigmoid diverticulitis with microperforation. No abscess. Follow-up evaluation will be indicated to exclude underlying adenocarcinoma. 2. Pericystic inflammation, could be reactive or cystitis. Correlate with urinalysis. Abdomen X-Ray 03/01/20 13:20 IMPRESSION: Nonspecific abdomen Abdomen/Pelvis CT 03/04/20 17:21 IMPRESSION: 1. Perforated sigmoid diverticulitis with free intraperitoneal gas as well as a couple small gas and fluid collections without a well-defined organizing peterson in the right hemipelvis but concerning for progression towards abscesses. Discharge Plan Discharge Attending physician on discharge: Hunter Rose Consulting providers: Sanchez Richter ; Marcial Andrew Discharging Clinician: Mala Cox Anticipated Discharge Date/Time: 03/11/20 09:18 Patient Disposition: Home, Self-Care Activity: as to
[2020-03-11 09:48] LABS: Triglycerides 84 mg/dL (<150)
== END 2020-03-11 12:30 | disposition home or self-care (01) | DRG 392 ==
LOC: ANHED 19:23 → ANH3MED 20:20
PROVIDERS: Nurse Practitioner Family; Physician Assistant; Surgery; Admitting Provider Family Medicine; Emergency Provider Emergency Medicine; PCP Internal Medicine; Visit Provider Physician Assistant
DX: K57.20 Diverticulitis of large intestine with perforation and abscess without bleeding (principal); N17.9 Acute kidney failure, unspecified; I10 Essential (primary) hypertension
CPT/HCPCS: 36415; 74018; 74177; 80048; 80053; 80170; 81001; 83690; 83735; 84100; 84466; 84478; 85025; 85027; 87040; 87045; 87046; 87324; 87427; 96365; 96375; 99285; A9270; J0131; J1170; J1580; J1741; J2405; J2543; J3480; J7030; J7042; Q9967

== ENCOUNTER 2020-03-24 09:04 | Outpatient (CLI) | payer OTHER, SELFPAY ==
--- NOTE | ~2020-03-24 | CT_ITS ---
EXAMINATION: CT abdomen pelvis w con DATE: 03/24/2020 09:57 INDICATION: Diverticulitis of large intestine with perforation and abscess. TECHNIQUE: Computed tomography (CT) of the abdomen and pelvis was performed with 100 mL Omnipaque 350 intravenous contrast. Automated exposure control and iterative reconstruction technique were employe d. The dose-length product was 381.39 mGy-cm. COMPARISON: CT abdomen and pelvis 03/04/2020 FINDINGS: The visualized portions of the lung bases demonstrate mild atelectasis. No pleural effusion . The heart size is normal. No pericardial effusion. There is a 1.3 cm hyperdense mass in segment VII I of the liver, likely a hemangioma or focal nodular hyperplasia. The gallbladder, spleen, pancreas, adrenal glands, and right kidney are normal. There is a 1.7 cm cyst in left kidney. The prostate is m ildly enlarged. There are scattered diverticula in the colon. There is wall thickening of the sigmoid colon. 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 The ap pendix is normal. There are no dilated loops of bowel. There is no free intraperitoneal fluid. There is mild thoracolumbar spondylosis. IMPRESSION: 1. 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 No drainab le abscess. Reviewed, dictated and finalized at location A. IMPRESSION: 1. Sigmoid diverticulitis with enterocolic fistula with interval decrease in in flammation. No drainable abscess.
== END 2020-03-24 09:05 | disposition home or self-care (01) ==
LOC: ANHIMG 09:06
PROVIDERS: PCP Internal Medicine; Visit Provider Surgery
DX: K57.20 Diverticulitis of large intestine with perforation and abscess without bleeding (principal)
CPT/HCPCS: 74177; Q9967

== ENCOUNTER 2020-12-08 08:52 | Emergency (ER) | payer OTHER, SELFPAY ==
--- NOTE | ~2020-12-08 | XR_ITS ---
XR chest 2V DATE: 12/08/2020 10:52 INDICATION: Fall. TECHNIQUE: AP and lateral views COMPARISON: 07/29/2008 portable AP chest FINDINGS: Normal heart size. Aortic calcification and mild unfolding. No hilar or mediastinal enlarge ment. No pulmonary infiltrate or consolidation, pleural effusion or pulmonary vascular congestion or pneumo thorax. Fixation devices overlie the right glenoid process superiorly. IMPRESSION: No active cardiopulmonary disease Reviewed, dictated and finalized at location B. ESS CONSULTANT
--- NOTE | ~2020-12-08 | XR_ITS ---
XR humerus LT DATE: 12/08/2020 10:53 INDICATION: Fall. Left arm pain, limited range of motion TECHNIQUE: AP and lateral views COMPARISON: None FINDINGS: No fracture, dislocation, periosteal reaction or bone destruction. IMPRESSION: Negative Reviewed, dictated and finalized at location B. LIFE REMOVAL SPECIALIST IMPRESSION: Negative
--- NOTE | ~2020-12-08 | CT_ITS ---
EXAMINATION: CT brain wo con INDICATION: Head injury COMPARISON: 01/07/2014 TECHNIQUE: Standard unenhanced head CT. The dose-length product (DLP) was 605.33 mGy-cm. The mA was a djusted according to patient size. Iterative reconstruction technique was employed. FINDINGS: There is no intracranial hemorrhage, acute infarction, or abnormal mass lesion. The ventric les are normal. There is no abnormal mass effect or midline shift. The sharif-white matter differentiat ion is normal. The basal cisterns are patent. The orbits are normal. There is mild mucosal thickening of the paranasal sinuses. IMPRESSION: 1. No acute intracranial abnormality. Reviewed, dictated and finalized at location A. R RESOURCE MANAGER
--- NOTE | ~2020-12-08 | XR_ITS ---
XR shoulder LT min 2V DATE: 12/08/2020 10:53 INDICATION: Fall. Left shoulder pain, limited range of motion TECHNIQUE: 4 views COMPARISON: None FINDINGS: No fracture or dislocation, periosteal reaction or bone destruction or abnormal soft tissue calcification. Normal alignment at the acromioclavicular and glenohumeral joints. IMPRESSION: No significant abnormality Reviewed, dictated and finalized at location B. TRAINING IMPRESSION: No significant abnormality
--- NOTE | ~2020-12-08 | XR_ITS ---
XR hip LT 2V w AP pelvis DATE: 12/08/2020 10:52 INDICATION: Fall. Generalized left hip pain TECHNIQUE: AP pelvis. AP and lateral views of left hip. COMPARISON: None FINDINGS: Bilateral hip osteoarthritic arthritis, left greater than right. The pubic symphysis and sacroiliac joints are intact. No pelvic fracture or bone destruction is detec orestes. No fracture, dislocation, avascular necrosis or bone destruction of the left hip. IMPRESSION: Bilateral hip osteoarthritis, left greater than right No pelvic or left hip fracture or dislocation Reviewed, dictated and finalized at location B. CTOR OF PLACEMENT
--- NOTE | ~2020-12-08 | CT_ITS ---
EXAMINATION: CT cervical spine wo con DATE: 12/08/2020 10:28 INDICATION: Neck pain TECHNIQUE: Computed tomography (CT) of the cervical spine was performed without intravenous contrast. The dose-length product (DLP) was 436.64 mGy-cm. Automated exposure control and iterative reconstruc tion technique were employed. COMPARISON: None FINDINGS: There is no fracture. There are 2 mm of anterolisthesis of C2 on C3. There is mild loss of intervertebral disc space height throughout the cervical spine the vertebral body heights are maintai kim. There is mild multilevel facet and uncovertebral joint osteoarthritis. Small degenerative osteop hytes project from the anterior endplates of multiple vertebral bodies. The odontoid is intact. The p revertebral soft tissues are normal. IMPRESSION: 1. Mild to moderate cervical spondylosis without acute findings. Reviewed, dictated and finalized at location A. ING RACK SUPERVISOR
[2020-12-08 08:55] VITALS: PULSE 75; RESP 17; TEMP 36.3; O2SAT 97
[2020-12-08 09:05] VITALS: BP 127/78
--- NOTE | 2020-12-08 10:06 | ED.FALL ---
HPI - Fall General Chief Complaint: Fall Stated Complaint: fall/left shoulder injury Time Seen by Provider: 12/08/20 08:53 Source: patient Mode of arrival: EMS Limitations: no limitations History of Present Illness HPI Narrative: A 55-year-old male comes into the ED today after a slip and fall at work. Patient states that he slipped on a wet floor, noting that his feet went out underneath him and he landed on the floor. Patient states he primarily landed on his left side. He denies any loss of consciousness but states that he did hit his head. Is also complaining of primarily neck and shoulder pain. Patient also having left hip pain. He does state the pain seems to radiate down his arm and he is having difficulty moving it secondary to the pain. Related Data Home Medications Medication Instructions Recorded Confirmed Adult One Daily Multivitamin 0.4 mg PO DAILY 02/29/20 07/27/20 Zyrtec 10 mg PO HS 02/29/20 07/27/20 Allergies Allergy/AdvReac Type Severity Reaction Status Date / Time No Known Allergies Allergy Verified 07/27/20 09:23 Review of Systems Review of Systems: Narrative: CONSTITUTIONAL: Denies fever, chills, or sweats. EYES: Denies visual changes, redness, or discharge. ENT: Denies rhinorrhea, congestion, sore throat, or otalgia. CARDIOVASCULAR: Denies chest pain, palpitations, or edema. RESPIRATORY: Denies cough or dyspnea. GASTROINTESTINAL: Denies abdominal pain, nausea, vomiting, or diarrhea. GENITOURINARY: Denies dysuria or hematuria. SKIN: Denies rash or itching. MUSCULOSKELETAL: Denies back pain, joint pain, or myalgia. Endorses pain at the left shoulder and hip NEUROLOGIC: Denies headache, numbness, dizziness, or weakness. PSYCHIATRIC: Denies anxiety or depression. [facility] Past Medical History Medical History (Updated 12/08/20 @ 12:59 by Yves Aparicio DO) HTN (hypertension) with goal to be determined TUSHAR (obstructive sleep apnea) Surgical History Surgical History History of colonoscopy with polypectomy 3 years ago. Findings of internal hemorrhoids and benign polyps. History of right knee surgery History of shoulder surgery History of sinus surgery History of surgery on left wrist Family History Family History Father Family history of lung cancer, Onset Age: 79 Patient's father is Mother Family history of diabetes mellitus in first degree relative Hypertension Cerebrovascular accident Carcinoma of colon Sibling Asthma Social History Social History Social History: Primary care provider is Dr. Molina. Smoking packs per day: 3 Smoking cigarettes per day: 60.0 Years smoked: 10 Smoking pack-years: 30.00 Smoking status: Former smoker Second hand tobacco smoke exposure: No Smoking end date: 10/20/90 Alcohol intake: current Drinks per week: 28 Substance use: current Substance use type: marijuana Other substance usage details: uses marijuana once a week Last use: No use in the past few days. Additional living arrangements comments: Lives with his significant other. Gender identity (if verbalized by the patient): Male Spiritual care concerns: No Exam Narrative: Exam Narrative: GENERAL: Well-appearing, well-nourished, and in no acute distress. HEAD: Normocephalic, atraumatic. EYES: PERRLA and EOMI. ENT: Nares clear, no rhinorrhea or epistaxis. Mucous membranes moist. NECK: Supple. No adenopathy or masses. No carotid bruits or JVD CHEST: Clear to auscultation. No respiratory distress. No wheezes rales or rhonchi HEART: Regular rate and rhythm. No murmur heard. Normal peripheral pulses. ABDOMEN: Soft, nontender, nondistended, normal active bowel sounds. EXTREMITIES: Significantly limited range of motion of the left shoulder secondary to p
[2020-12-08] MEDS: MORPHINE SULFATE (*CRX) 4 MG/ML INJ IV PUSH (10:49)
[2020-12-08 12:00] VITALS: BP 125/60; PULSE 70; RESP 16; O2SAT 98
[2020-12-08] MEDS: oxyCODONE/ACETAMINOPHEN (*CRX) 5-325 MG TABLET 1 TABLET (13:04)
== END 2020-12-08 13:12 | disposition home or self-care (01) ==
PROVIDERS: Emergency Provider Emergency Medicine; PCP Internal Medicine
DX: S40.012A Contusion of left shoulder, initial encounter (principal); S70.02XA Contusion of left hip, initial encounter; W01.0XXA Fall on same level from slipping, tripping and stumbling without subsequent striking against object, initial encounter; M47.812 Spondylosis without myelopathy or radiculopathy, cervical region; M16.0 Bilateral primary osteoarthritis of hip
CPT/HCPCS: 70450; 71046; 72125; 73030; 73060; 73502; 90471; 96374; 99284; A9270; J2270

== ENCOUNTER 2021-05-25 10:16 | Outpatient (CLI) | payer OTHER, SELFPAY ==
--- NOTE | ~2021-05-25 | XR_ITS ---
XR_CERV2-3V_CR DATE: 05/25/2021 10:50 INDICATION: Right shoulder pain, limited range of motion TECHNIQUE: AP, open-mouth, lateral views COMPARISON: None FINDINGS: There is mild reversal cervical curvature which may be due to muscle spasm. There is moderate degenerative disc disease at C3-4, C4-5, C5-6 and C6-7. There is uncovertebral join t spurring at the mid to lower cervical spine. No fracture or dislocation or locked facet. C1 and C2 are normally aligned and the odontoid process i s intact. IMPRESSION: Mild reversal cervical curvature Multilevel moderate degenerative disc disease and uncovertebral joint spurring Reviewed, dictated and finalized at Location A. Reviewed, dictated and finalized at location B.
--- NOTE | ~2021-05-25 | XR_ITS ---
XR shoulder RT min 2V DATE: 05/25/2021 10:50 INDICATION: Right shoulder pain TECHNIQUE: 4 views COMPARISON: 03/07/2006 right shoulder 09/11/2005 right shoulder FINDINGS: 2 anchor devices are noted at the superior rim of the right glenoid process. No fracture or dislocation, periosteal reaction or bone destruction or abnormal soft tissue calcifica tion is detected. IMPRESSION: Postoperative change Reviewed, dictated and finalized at location B. IMPRESSION: Postoperative change
--- NOTE | ~2021-05-25 | XR_ITS ---
XR knee RT 3V DATE: 05/25/2021 10:50 INDICATION: Right knee pain. TECHNIQUE: Anthon, AP and lateral views COMPARISON: None FINDINGS: There is mild to moderate tricompartment osteoarthritis. Suggestion of mild joint effusion. No fracture or dislocation, periosteal reaction or bone destruction, radiopaque intra-articular loose body or chondrocalcinosis. IMPRESSION: Mild to moderate tricompartment osteoarthritis Suggestion of mild joint effusion. Reviewed, dictated and finalized at location B.
== END 2021-05-25 10:17 | disposition home or self-care (01) ==
LOC: ANHIMG 10:20
PROVIDERS: PCP Internal Medicine; Visit Provider Internal Medicine
DX: M47.812 Spondylosis without myelopathy or radiculopathy, cervical region (principal); M17.11 Unilateral primary osteoarthritis, right knee; M23.41 Loose body in knee, right knee
CPT/HCPCS: 72040; 73030; 73562

== ENCOUNTER 2022-11-12 09:15 | Outpatient (CLI) | payer OTHER, SELFPAY ==
--- NOTE | 2022-11-12 11:00 | NEURO_ITS ---
Impression: # Complains of right hand numbness. # Moderate right Carpal Tunnel Syndrome. # No ulnar neuropathy. # Normal needle/EMG exam. Motor Nerve Conduction Upper Extremities Median Nerve Conduction Velocity (m/sec) Terminal Latency (msec) Response Voltage(mV) Elbow-Wrist Wrist Elbow Wrist Right 51 5.1 3 3 Left Ulnar Nerve Conduction Velocity (m/sec) Terminal Latency (msec) Response Voltage(mV) Above Elbow Below Elbow Wrist Above Elbow Below Elbow Wrist Right 51 2.9 8 9 Left F-Wave Latency Median (ms) Ulnar (ms) Right 27.0 28.9 Left Sensory Nerve Conduction Upper Extremities Median Nerve Stimulation Terminal Latency (msec) Wrist/Digit Response Voltage (uV) Wrist Right 4.4/7.2 60/56 Left Ulnar Nerve Stimulation Terminal Latency (msec) Wrist/Digit Response Voltage (uV) Wrist Right 2.9 28 Left Radial Nerve Terminal Latency (msec) Response Voltage(mV) Right 2.7 45 Left Left Right Muscles Examined Fibrillation Fasciculation Scarcity Voltage Duration Left Right Left Right Left Right Left Right Left Right X Deltoid X Biceps X Brachioradialis X Triceps X Pronator Teres X Ext Indicis X Ext Digitorum X Abd Poll Brev X 1st Dorsal Interosseus X Abd Dig Min MTDD
== END 2022-11-12 09:16 | disposition home or self-care (01) ==
PROVIDERS: PCP Internal Medicine; Visit Provider Internal Medicine
DX: G56.01 Carpal tunnel syndrome, right upper limb (principal)
CPT/HCPCS: 95886; 95909

== ENCOUNTER 2023-05-13 08:51 | Day surgery (SDC) | payer OTHER, SELFPAY ==
[2023-04-29 11:46] VITALS: BMI 22.4
--- NOTE | 2023-05-13 08:35 | WPDHPUPDATE1 ---
History and Physical Update Update Date/Time: 05/13/23 08:35 History and Physical has been reviewed, including an updated exam of the patient. There are NO changes in the patient's condition. Risks, benefits, and alternatives have been discussed and questions answered. Patient agrees to proceed with procedure.
[2023-05-13 10:20] VITALS: BMI 22.2
[2023-05-13 10:24] VITALS: BP 117/82; PULSE 78; RESP 18; TEMP 37.5; O2SAT 100
[2023-05-13 10:43] VITALS: BP 112/70; PULSE 81; RESP 13; O2SAT 99
[2023-05-13 10:53] VITALS: BP 108/69; PULSE 72; RESP 12; O2SAT 94
[2023-05-13 11:03] VITALS: BP 101/61; PULSE 75; RESP 12; O2SAT 99
[2023-05-13] MEDS: LIDO 1%/EPINEPHRINE 1:100,000 50 ML VIAL 7 ML INFILTRATE (11:03)
[2023-05-13 11:09] VITALS: BP 102/73; PULSE 68; RESP 20; O2SAT 100
--- NOTE | 2023-05-13 11:13 | W.PM.PROC2 ---
Procedure Note - Detailed Date of Procedure 05/13/23 Pre-op Diagnosis Right Carpal Tunnel Syndrome Post-op Diagnosis Same Procedure Performed Right open carpal tunnel release Surgeon Isak Jeffrey MD Anesthesia Local Description of Procedure the right carpal tunnel was marked on the patient with his consent in the holding estevez. He was taken to the operating room where he was placed supine on the operating table. The extremity was prepped and draped in usual fashion. A time-out was held and confirmed. The area was set remarked for the incision site and then locally infiltrated with 1% lidocaine with epinephrine. Adequate anesthesia was obtained. The extremity was exsanguinated and the tourniquet inflated to 250 mmHg. The incision was made as marked and dissection was carried through the subcutaneous tissue with blunt dissection this revealed the palmar aponeurosis and the transverse retinaculum. The incision was made through those and under 3 point retraction the ligament was divided distally and then proximally for complete release. There was no unusual anatomy noted. The skin was closed with interrupted 4-0 nylon suture the tourniquet was released at 9 minutes and the usual bandage was applied. The is discharged home with instructions in wound care and follow-up was prescription for hydrocodone 5/325 6. Estimated Blood Loss 1 Tourniquet Time 9 Drains No Packing No Pathology None sent Complications No immediate complications Condition Stable Disposition Same day
== END 2023-05-13 11:22 | disposition home or self-care (01) ==
PROVIDERS: PCP Internal Medicine; Visit Provider Plastic Surgery
PROC: (CPT 64721; principal; 2023-05-13 11:00)
DX: G56.01 Carpal tunnel syndrome, right upper limb (principal)
CPT/HCPCS: 64721

== ENCOUNTER 2024-10-26 07:46 | Outpatient (CLI) | payer OTHER, SELFPAY ==
--- NOTE | 2024-10-26 08:55 | ECG_ITS ---
Test Date: 2024-10-26 09:09:04 Measurements Intervals [place] Rate: 57 P: 63 AL: 172 QRS: 14 QRSD: 104 T: 41 QT: 397 QTc: 387 Interpretive Statements SINUS BRADYCARDIA No previous ECG available for comparison Electronically Signed On 10-27-2024 17:31:39 HOTEL OFFICE MANAGER by Teo Gama M.D.
[2024-10-26 10:05] LABS: Albumin Level 4.4 g/dL (3.5-5.1); Anion Gap 4 mmol/L (4-12); Blood Urea Nitrogen 16 mg/dL (9-20); Calcium 8.9 mg/dL (8.4-10.2); Carbon Dioxide 33 mmol/L (22-30); Chloride 105 mmol/L (98-107); Estimated Glomerular Filt Rate > 60; Glucose 112 mg/dL (65-110); Potassium 4.2 mmol/L (3.4-5.0); Sodium 142 mmol/L (137-145)
[2024-10-26 10:18] LABS: Urine Cotinine NEGATIVE
[2024-10-26 10:35] LABS: Basophils Percent Auto 0.6 % (0.2-1.2); Eosinophils Percent Auto 0.6 % (0-4.4); Hematocrit 42.3 % (42.0-52.0); Hemoglobin 13.5 g/dL (14.0-18.0); Immature Granulocyte Absolute 0.01 K/mm3 (0.00-0.031); Immature Granulocyte Percent A 0.3 % (0-0.5); Lymphocytes Absolute Auto 0.95 K/mm3 (0.9-3.2); Lymphocytes Percent Auto 29.3 % (18.3-44.2); Mean Corpuscular HGB Conc 31.9 g/dl (32-36); Mean Corpuscular Hemoglobin 29.7 pg (26-34); Mean Corpuscular Volume 93.2 fl (80-100); Mean Platelet Volume 10.6 fl (7.4-10.4); Monocytes Absolute Auto 0.3 K/mm3 (0.1-0.6); Monocytes Percent Auto 10.2 % (2.6-8.5); Neutrophils Absolute Auto 1.9 K/mm3 (1.3-6.7); Platelet Count Result 172 k/mm3 (150-375); Red Blood Count 4.54 M/mm3 (4.6-6.20); Red Cell Distribution Width 13.2 % (11.5-14.5); White Blood Count 3.2 K/mm3 (4.5-10.0)
[2024-10-26 11:47] LABS: Hemoglobin A1C 5.4 % (<5.7)
--- OUTSIDE RECORDS SUMMARY | 2024-11-01 18:14 | XMS_ITS ---
Author Organization [facility] Address [address] [place] [address] Care Team Providers Care Java Software Engineer Name Role Phone Jesse Álvaro Primary Care Provider Unavailab Salima Bean Unavailable [phone] Asim Pollack Unavailable [phone] REASON FOR VISIT SCIT - Traditional Schedule Allergy immunotherapy Medications Medication SIG (Take, Route, Frequency, Duration) Notes Start Date End Date Status SIT (TRADITIONAL) variable per schedule SC per schedule for to be determined Active Encounters Encounter Location Date Provider Diagnosis [facility] [address] [place] [address] 11/10/2023 Asim Pollack Allergic rhinitis du e to pollen J30.1 ; Other allergic rhinitis J30.89 ; Allergic rhinitis due to animal (cat) (dog) hair and dander J30.81 and Other chronic allergic conjunctivitis H10.45 Assessments Encounter Date Diagnosis (ICD Code) Assessment Notes Treatment Notes Treatment Clinical Notes Section Notes 11/10/2023 Allergic rhinitis due to pollen (ICD-10 - J30.1) 11/10/2023 Other allergic rhinitis (ICD-10 - J30.89) 11/10/2023 Allergic rhinitis due to animal (cat) (dog) hair and dander (ICD-10 - J30.81) 11/10/2023 Other chronic allergic conjunctivitis (ICD-10 - H10.45) Plan Of Treatment Medication Medication Name Sig Start Date Stop Date Notes SIT (TRADITIONAL) variable per schedule SC per schedule for to be determined Next Appt Details Follow Up: 4 Weeks, Reason: Progress Notes * Cate GOINS ADOB: [birth year] (58 yo M)Acc No.[id number]:11/10/2023 SCIT-Aeroallergen Patient:?Cate GOINS Provider:?Asim Pollack MD :1965???Age:57 Y???Sex:Male Donnie e:11/10/2023 Address:[address] [place] [address] , [facility] Pcp:Álvaro Molina Subjective: * Chief Complaints: * ???1. SCIT - Traditional Alison edule Allergy immunotherapy . * HPI: ???*Introduction:? The patient is here for scheduled immunotherapy. Please see the attached specialty form regarding the specifics of the administration of these vaccines. As per our protocol, the must undergo a screening health questionnaire (medication changes, reaction(s) to last immunotherapy dose(s), current health status, ACT (if appropriate), self-injectable epinephrine on patient(?) and peak flow (if appropriate)). Also, the patient must wait in our office for 30 minutes after receiving the vaccine(s). Furthermore, every patient must have an epinephrine pen (self-injectable) with them at the time of administration--and carry if for the following 1.5 hours after they leave our office. The patient must also have taken their antihistamine the day of the injection, preferably 2 hours prior. The consent form for SCIT (subcutaneous immunotherapy) is on file. * Medical History:? Objective: * Vitals:? Assessment: * Assessment: 1.?Allergic rhinitis due to pollen - J30.1 (Primary)???2.?Other allergic rhinitis - J30.89???3.?Allergic rhinitis due to animal (cat) (dog) hair and dander - J30.81???4.?Other chronic allergic conjunctivitis - H10.45??? Plan: * Treatment: * Follow Up:?4 Weeks * Billing Information: * Visit Code:? * Procedure Codes:? 04206 IMMUNOTHERAPY INJECTIONS. * Electronic signature of Thanh Pollack MD, FAAAAI on 11/01/2024 at 06:14 PM SAMPLE MAKER ORIGINAL Sign off status: Pending * Provider:?Asim Pollack MD Date:?11/10 Generated for Oleg bro/Cleo/Kathryn on:?11/01/2024 06:14 PM SAMPLE MAKER ORIGINAL History and Physical Notes * HPI (History of Present Illness) Category Sub-Category Detail Notes Category Not es *Introduction The patient is here for scheduled immunotherapy. Please see the attached specialty form regarding the specifics of the administration of these vaccines. As per our protocol, the must undergo a screening health questionnaire (medication changes, reaction(s) to last immunotherapy dose(s), current health status, ACT (if appropriate), self-injectable epinephrine on patient(?) and peak flow (if appropriate)). Also, the patient must wait in our office for 30 minutes after receiving the vaccine(s). Furthermore, every patient must have an epinephrine pen (self-injectable) with them at the time of administration--and carry if for the following 1.5 hours after they leave our office. The patient must also have taken their antihistamine the day of the injection, preferably 2 hours prior. The consent form for SCIT (subcutaneous immunotherapy) is on file.
--- OUTSIDE RECORDS SUMMARY | 2024-11-01 18:14 | XMS_ITS ---
Author Organization [facility] Address [address] [place] [address] Care Team Providers Care Net Programmer Name Role Phone Álvaro Molina Primary Care Provider Unavailab Yousif Beanica Unavailable [phone] [facility]-Migration, Provider Unavailable Unavailab le REAS[facility] VISIT [facility] Encounter Medications Medication SIG (Take, Route, Frequency, Duration) Notes Start Date End Date Status CeleBREX 200 MG 1 cap(s) orally 2 times a day prn Active EPINEPHrine 0.3 MG 0.3 MG INTRAMUSCULARLY ONCE for 30 DAY(S) *Please review and pick correct strength-formula tion from Metagospan options. If intended option is not shown, discontinue and re-order from Quick Search* Active PROAIR HFA 90 MCG/INH 2 PUFF(S) INHALED Q4-6 HOURS, PRN prn *Please review for potential replacement for e-prescription and drug interaction check* Active Vitamin D3 50 MCG (2000 UT) as directed orally once a day for 30 day(s) Not-Taking PAZEO 0.7% 1 GTT IN EACH AFFECTED EYE QDAY, PRN for 30 DAY(S) *Please review for potential replacement for e-prescription and drug interaction check* Not-Taking Xhance 93 MCG/INH DIRECTED IN EACH NOSTRIL 2 TIMES A DAY *Please review and pick correct strength-formula tion from Medispan options. If intended option is not shown, discontinue and re-order from Quick Search* Not-Taking PATADAY ONCE DAILY RELIEF 0.2% 1 GTT IN EACH AFFECTED EYE ONCE A DAY for 10 DAY(S) *Please review for potential replacement for e-prescription and drug interaction check* Active ULTRAM 50 MG 1 TAB(S) ORALLY EVER Y 6 HOURS *Please review for potential replacement for e-prescription and drug interaction check* Not-Taking Astepro 137 MCG 2 SPRAYS EACH NOSTRI L INTRANASAL BID, PRN *Please review and pick correct strength-formula tion from All My Data options. If intended option is not shown, discontinue and re-order from Quick Search* Active Flonase Allergy Relief 50 MCG/ACT 2 spray(s) intranasally once a day Active Felodipine ER 10 MG 1 tab(s) orally once a day Active EPINEPHrine 0.3 MG 0.3 MG INTRAMUSCULARLY ONCE for 1 DOSE(S) *Please review and pick correct strength-formula tion from BidKindan options. If intended option is not shown, discontinue and re-order from Quick Search* Active SIT (TRADITIONAL) VARIABLE PER SCHEDULE SC PER SCHEDULE *Please review for potential replacement for e-prescription and drug interaction check* Active Singulair 10 MG 1 tab(s) orally once a day Active ZyrTEC Allergy 10 MG 1 tab(s) orally once a day Active Testosterone Cypionate 100 MG/ML 50mg intramuscularly every 4 weeks Not-Taking SIT (TRADITIONAL) VARIABLE PER SCHEDULE SC PER SCHEDULE for TO BE DETERMINED *Please review for potential replacement for e-prescription and drug interaction check* Active Encounters Encounter Location Date Provider Diagnosis [address] [address] 04/03/2024 Provider LuanaZ-Migration Allergic rhinitis due to pollen J30.1 Assessments Encounter Date Diagnosis (ICD Code) Assessment Notes Treatment Notes Treatment Clinical Notes Section Notes 04/03/2024 Allergic rhinitis due to pollen (ICD-10 - J30.1) Plan Of Treatment Medication Medication Name Sig Start Date Stop Date Notes SIT (TRADITIONAL) VARIABLE PER SCHEDULE SC PER SCHEDULE for TO BE DETERMINED *Please review for potential replacement for e-prescription and drug interaction check* Progress Notes * Cate GOINS ADOB: [birth year] (58 yo M)Acc No.[id number]:04/03/2024 Patient:?Cate GOINS A Provider:?Provider Migration :1965???Age:58 Y???Sex:Male Donnie e:04/03/2024 Address:[facility] [address] [facility] Pcp:Álvaro Molina Subjective: * Chief Complaints: * ???1. [facility] version Encounter. * Medical History:? * Medications:?Taking Felodipi ne ER 10 MG Tablet Extended Release 24 Hour 1 tab(s) orally once a day , Taking EPINEPHrine 0.3 MG KIT 0.3 MG INTRAMUSCULARLY ONCE , Notes to Pharmacist: *Please review and pick correct strength-formulation from All My Data options. If intended option is not shown, discontinue and re-order from Quick Search*, Taking Singulair 10 MG Tablet 1 tab(s) orally once a day , Taking ZyrTEC Allergy 10 MG Tablet 1 tab(s) orally once a day , Taking SIT (TRADITIONAL) VARIABLE SEE RECORD PER SCHEDULE SC PER SCHEDULE , Notes to Pharmacist: *Please review for potential replacement for e-prescription and drug interaction check*, Taking Flonase Allergy Relief 50 MCG/ACT Suspension 2 spray(s) intranasally once a day , Taking Astepro 137 MCG SPRAY 2 SPRAYS EACH NOSTRIL INTRANASAL BID, PRN , Notes to Pharmacist: *Please review and pick correct strength-formulation from All My Data options. If intended option is not shown, discontinue and re-order from Quick Search*, Taking PATADAY ONCE DAILY RELIEF 0.2% SOLUTION 1 GTT IN EACH AFFECTED EYE ONCE A DAY , Notes to Pharmacist: *Please review for potential replacement for e-prescription and drug interaction check*, Taking PROAIR HFA 90 MCG/INH AEROSOL 2 PUFF(S) INHALED Q4-6 HOURS, PRN , Notes to Pharmacist: prn *Please review for potential replacement for e-prescription and drug interaction check*, Taking CeleBREX 200 MG Capsule 1 cap(s) orally 2 times a day , Notes to Pharmacist: prn, Taking EPINEPHrine 0.3 MG KIT 0.3 MG INTRAMUSCULARLY ONCE , Notes to Pharmacist: *Please review and pick correct strength-formulation from All My Data options. If intended option is not shown, discontinue and re-order from Quick Search*, Not-Taking/PRN ULTRAM 50 MG TABLET 1 TAB(S) ORALLY EVERY 6 HOURS , Notes to Pharmacist: *Please review for potential replacement for e-prescription and drug interaction check*, Not-Taking/PRN Xhance 93 MCG/INH SPRAY DIRECTED IN EACH NOSTRIL 2 TIMES A DAY , Notes to Pharmacist: *Please review and pick correct strength-formulation from Medispan options. If intended option is not shown, discontinue and re-order from Quick Search*, Not-Taking/PRN Vitamin D3 50 MCG (2000 UT) Tablet as directed orally once a day , Not-Taking/PRN PAZEO 0.7% SOLUTION 1 GTT IN EACH AFFECTED EYE QDAY, PRN , Notes to Pharmacist: *Please review for potential replacement for e- prescription and drug interaction check*, Not-Taking/PRN Testosterone Cypionate 100 MG/ML Solution 50mg intramuscularly every 4 weeks Objective: * Vitals:? Assessment: * Assessment: 1.?Allergic rhinitis due to pollen - J30.1 (Primary)??? Plan: * Treatment: * Billing Information: * Visit Code:? * Procedure Codes:? * Electronic signature of Jin ALATORRE-Migration on 11/01/2024 at 06:13 PM COLOR MAKING SUPERVISOR Sign off status: Pending * Provider:?Provider Migration Date:?04/03 Generated for Oleg bro/Cleo/Hattiesmitting on:?11/01/2024 06:13 PM COLOR MAKING SUPERVISOR
--- OUTSIDE RECORDS SUMMARY | 2024-11-01 18:14 | XMS_ITS | Patient Health Record ---
Author Organization [facility] Address [address] [place] [address] Care Team Providers Care Explosive Operator Bomb Name Role Phone TadÁlvaro arrieta Primary Care Provider Unavailab Salima Bean Unavailable [phone] Ranjeet Asim Unavailable [phone] [employer], Provider Unavailable Unavailab le Allergies No Known Allergies Reason For Referral No Information Medications Medication SIG (Take, Route, Frequency, Duration) Notes Start Date End Date Status Felodipine ER 10 MG 1 tab(s) orally once a day Active EPINEPHrine 0.3 MG 0.3 MG INTRAMUSCULARLY ONCE for 1 DOSE(S) *Please review and pick correct strength-formula tion from [employer] options. If intended option is not shown, discontinue and re-order from Quick Search* Active SIT (TRADITIONAL) VARIABLE PER SCHEDULE SC PER SCHEDULE for TO BE DETERMINED *Please review for potential replacement for e-prescription and drug interaction check* Active ASTEPRO 137 mcg 2 sprays each nostri l intranasal BID, PRN Active SIT (TRADITIONAL) VARIABLE PER SCHEDULE SC PER SCHEDULE *Please review for potential replacement for e-prescription and drug interaction check* Active Flonase Allergy Relief 50 MCG/ACT 2 spray(s) intranasally once a day Active Singulair 10 MG 1 tab(s) orally once a day Active ZyrTEC Allergy 10 MG 1 tab(s) orally once a day Active CeleBREX 200 MG 1 cap(s) orally 2 times a day prn Active EPINEPHrine 0.3 MG 0.3 MG INTRAMUSCULARLY ONCE for 30 DAY(S) *Please review and pick correct strength-formula tion from Medispan options. If intended option is not shown, discontinue and re-order from Quick Search* Active Xhance 93 MCG/INH DIRECTED IN EACH NOSTRIL 2 TIMES A DAY *Please review and pick correct strength-formula tion from [employer] options. If intended option is not shown, discontinue and re-order from Quick Search* Not-Taking PROAIR HFA 90 MCG/INH 2 PUFF(S) INHALED Q4-6 HOURS, PRN prn *Please review for potential replacement for e-prescription and drug interaction check* Active PATADAY ONCE DAILY RELIEF 0.2% 1 GTT [...] review and pick correct strength-formula tion from [employer] options. If intended option is not shown, discontinue and re-order from Keelr Search* Active XHANCE 93 mcg/inh as directed in each nostril 2 times a day Not-Taking CELEBREX 200 mg 1 cap(s) orally 2 times a day prn Active EPINEPHRINE 0.3 mg 0.3 mg intramuscularly once for 30 day(s) Active VITAMIN D3 2000 intl units as directed orally once a day for 30 day(s) Not-Taking TESTOSTERONE CYPIONATE cypionate 100 mg/mL 50mg intramuscularly every 4 weeks Not-Taking FELODIPINE 10 mg 1 tab(s) orally once a day Active EPINEPHRINE 0.3 mg 0.3 mg intramuscularly once for 1 dose(s) Active SINGULAIR 10 mg 1 tab(s) orally once a day Active ZYRTEC 10 mg 1 tab(s) orally once a day Active FLONASE 50 mcg/inh 2 spray(s) intranasally once a day Active Testosterone Cypionate 100 MG/ML 50mg intramuscularly every 4 weeks Not-Taking Vitamin D3 50 MCG (2000 UT) as directed orally once a day for 30 day(s) Not-Taking PAZEO 0.7% 1 GTT IN EACH AFFECTED EYE QDAY, PRN for 30 DAY(S) *Please review for potential replacement for e-prescription and drug interaction check* Not-Taking Immunizations Vaccine Route Administration Date Status Comme nts Covid 19 (Pfizer) Unknown 11/09/2020 Administered NOC Fluzone Quadrivalent Unknown 09/03/2018 Refused NOC Pneumovax 23 IM Intramuscular 12/07/2020 Administered Social History Tobacco Use: Social History Observation Description Date Details (start date - stop date) Never Smoker NA - NA Smoking Smart Form: Question Answer Notes Are you a: never smoker Problems Problem Type SNOMED Code ICD Code Onset Dates Problem Status W/U Status Risk Notes Problem Chronic allergic conjunctivitis (83124508) Other chronic allergic conjunctivitis (H10.45) Active confirmed Problem Essential hypertension (76579603) Essential (primary) hypertension (I10) Active confirmed Problem Allergic rhinitis caused by pollen (disorder) (28272765) Allergic rhinitis due to pollen (J30.1) Active confirmed Problem Allergic rhinitis (02065682) Other allergic rhinitis (J30.89) Active confirmed Problem Cough (46748713) Cough (R05) Active confirmed Problem Allergic rhinitis caused by pollen (disorder) (10858908) Allergic rhinitis due to pollen (J30.1) Active confirmed Problem Allergic rhinitis caused by animal hair and dander (769781948145428) Allergic rhinitis due to animal (cat) (dog) hair and dander (J30.81) Active confirmed Problem Allergic rhinitis (16834182) Other allergic rhinitis (J30.89) Active confirmed Problem Chronic allergic conjunctivitis (69779193) Other chronic allergic conjunctivitis (H10.45) Active confirmed Problem Chronic sinusitis (04670691) Other chronic sinusitis (J32.8) Active confirmed Encounters Encounter Location Date Provider Diagnosis [facility] [address] [address] 04/03/2024 Provider LANDRY-Roger Allergic rhinitis due to pollen J30.1 Assessments Encounter Date Diagnosis (ICD Code) Assessment Notes Treatment Notes Treatment Clinical Notes Section Notes 04/03/2024 Allergic rhinitis due to pollen (ICD-10 - J30.1) Plan Of Treatment Pending Test Test Name Order Date STREPTOCOCCUS PNEUMONIAE IGG AB (23 SERO TYPES) 12/07/2020 Insurance Providers Payer Name Payer Address Payer Phone Subscriber Number Group Number Insured Name Patient Relationship to Insured Coverage Start Date Coverage End Date [facility] [address] [address] [place] [phone] [id number] Cate Carrington Self - patient is the insured Medical (General) History Medical History History ICD Code Allergic rhinitis and conjunctivitis - s /p SCIT x 1 year in early Chronic sinusitis (unsure if nasal polyp osis) s/p surgery x 2 Hypertension Low testosterone Diverticulitis (with diverticulosis) NOS 562.11 Diverticulitis of both small and large intestine without perforation or abscess without bleeding K57.52 Surgical History Surgery Date(Month/Year) RIGHT KNEE 02/18/1984 RIGHT KNEE 02/18/1988 SINUS 03/20/2002 SINUS 02/17/2005 RIGHT SHOULDER 02/17/2006 LEFT WRIST 07/20/2006 RIGHT SHOULDER 10/20/2006 carpal tunnel release right side 04/2023 Hospitalization History Reason Date(Month/Year) diverticulitis 02/2020
--- OUTSIDE RECORDS SUMMARY | 2024-11-01 18:14 | XMS_ITS ---
Author Organization [facility] Address [address] [place] [address] Care Team Providers Care Cooler Worker Name Role Phone Álvaro Molina Primary Care Provider Unavailab Salima Bean Unavailable [phone] Asim Pollack Unavailable [phone] Encounters Encounter Location Date Provider Diagnosis [facility] [address] [place] [address] 12/08/2023 Asim Pollack Plan Of Treatment No Information Progress Notes * Cate GOINS ADOB: [birth year] (58 yo M)Acc No.[id number]:12/08/2023 SCIT-Aeroallergen Patient:?Gaurav GOINSkatherine Claudia Provider:?Asim Pollack MD :[id number]???Age:58 Y???Sex:Male Donnie e:12/08/2023 Address[address] [facility] Pcp:Álvaro Molina Subjective: * Chief Complaints: * ??? * Medical History:? Objective: * Vitals:? Assessment: Plan: * Treatment: * Billing Information: * Visit Code:? * Procedure Codes:? * Electronic signature of Thanh Pollack MD, FAAAAI on 11/01/2024 at 06:13 PM NURSE PRACTICAL Sign off status: Pending * Provider:?Asim Pollack MD Date:?12/08 Generated for Oleg bro/Cleo/Kathryn on:?11/01/2024 06:13 PM NURSE PRACTICAL
--- OUTSIDE RECORDS SUMMARY | 2024-11-01 18:15 | XMS_ITS ---
Author Name [facility] Organization [facility] [place] Address [address] [place] [address] Support Name Relationship Address Phone JONES GOINS Next of Kin [address] [place] [address] Unavailable UNK, UNK Emergency Contact Unknown Unavailabl e ARAUV Next of Kin Unknown Insurance Providers: All historical and current Section Date Range: From patient's date of to the date document was created. This section includes the names of all active insurance providers for the patient. Insurance Provider Type of Coverage Plan Name Start of Policy Coverage End of Policy Coverage Group Number Member ID Insurance Provider's Telephone Number Policy Christianson's Name Patient's Relationship to Policy Christianson [facility] Oct 20, 2020 [id number] [phone] Salma GOINS PATIENT [facility] Oct 20, 2017 [id number] [phone] Salma GOINS PATIENT [facility] Oct 20, 2020 [id number] Salma GOINS PATIENT Selected Encounter This section includes the information on record at [place] for the Encounter. Date/Time Encounter Type Encounter Description Reason Pro vider Source Mar 20, 2024 11:40 AM Outpatient Encounter ADMIN PAT ACTIVTIES (MASNONCT) IHE Encounter Template Text not used by [place] Social History: Smoking Status (Most current) and Tobacco Use (All prior to encounter date) This section includes the most current, and the historical, smoking and tobacco- related health factors from the [place] facility where the Encounter took place. Current Smoking Status This section includes the most current smoking, or tobacco-related health factor, from the [place] facility where the Encounter took place. Date/Time Current Smoking Status Comment Jong ity March 19, 2006 08:56 AM CURRENT NON-TOBACC O USER-HX OF USE [facility] Tobacco Use History This section includes a history of the smoking, or tobacco-related health factors, that were collected on or before the date of the Encounter. The data comes from the [place] facility where the Encounter took place. Date/Time Smoking Status/Tobacco Use Comment Jake acpito March 19, 2006 08:56 AM TOBACCO TERMINATION STAGE [facility] Encounter Notes: All associated encounter notes This section contains the clinical notes associated to the Encounter. Date/Time Encounter Note(s) Provider Source Mar 20, 2024 11:41 AM ADMINISTRATIVE NOT E: LOCAL TITLE: SCHEDULING NOTE STL STANDARD TITLE: ADMINISTRATIVE NOTE DATE OF NOTE: MAR 20, 2024@11:41 ENTRY DATE: MAR 20, 2024@11:42 AUTHOR: DIONISIO FERGUSON EXP COSIGNER: URGENCY: STATUS: COMPLETED Additional comments: CALLED AND LEFT MESSAGE FOR PATIENT TO CALL TO SCHEDULE A NEW PATIENT APPOINTMENT PER INACTIVE LIST. ADDITIONAL RESULTS FROM SCHEDULING ATTEMPTS: /reinaldo/ DIONISIO FERGUSON Development Officer, [facility] Signed: 03/20/2024 11:43 DIONISIO FERGUSON [facility] Mar 20, 2024 11:40 AM PRIMARY CARE SUNSHINE RS: LOCAL TITLE: PC NEW PATIENT NO CONTACT LETTER STL STANDARD TITLE: PRIMARY CARE LETTERS DATE OF NOTE: MAR 20, 2024@11:40 ENTRY DATE: MAR 20, 2024@11:40:52 AUTHOR: DIONISIO FERGUSON EXP COSIGNER: URGENCY: STATUS: COMPLETED [facility] [address] [place] [address] MAR 20, 2024 TASHA GOINS [facility] [address] [place], [place] [address] Dear Tsaha Goins, Thank you for your interest in establishing care with a Primary Care Provider at the [facility]. Your Primary Care Provider is the clinical leader of your Patient Aligned Care Team (PACT). Your PACT Team manages and coordinates your comprehensive health care services. Primary Care includes, but is not limited to: diagnosis and management of acute and chronic health conditions, health promotion, disease prevention, overall care management, post-deployment care, and patient and caregiver education. If you would like more information, please visit [email or web address]. We have been unsuccessful in our attempts to contact you to schedule your initial appointment. Based on your current residence, the clinic recommended for your primary care needs is: [address] [address] We are happy to accommodate your request with another clinic, if needed. Please call to schedule your initial appointment. Thank you for your service, and we look forward to hearing from you. Sincerely, DIONISIO FERGUSON Development Officer, TASHA CAZARES [facility]
--- OUTSIDE RECORDS SUMMARY | 2024-11-01 18:15 | XMS_ITS | Encounter Summary ---
Author Name [facility] Organization [facility] [place] Address [address] [place] [address] Support Name Relationship Address Phone JONES GOINS Next of Kin [address] [place] [address] Unavailable UNK, UNK Emergency Contact Unknown Unavailabl [...] Patient's Relationship to Policy Christianson [employer] [facility] Oct 20, 2020 [id number] [phone] Salma GOINS PATIENT [facility] M[facility] HE[facility] Oct 20, 2017 [id number] [phone] Salma GOINS PATIENT [facility] POINT OF SERVICE [facility] Oct 20, 2020 [id number] Salma GOINS PATIENT Selected Encounter This section includes the information on record at [place] for the Encounter. Date/Time Encounter Type Encounter Description Reason Pro vider Source May 03, 2024 10:51 AM Outpatient Encounter [facility] IHE Encounter Template Text not used by [place] Social History: Smoking Status (Most current) and Tobacco Use (All prior to encounter date) This section includes the most current, and the historical, smoking and tobacco- related health factors from the [place] facility where the Encounter took place. Current Smoking Status This section includes the most current smoking, or tobacco-related health factor, from the [place] facility where the Encounter took place. Date/Time Current Smoking Status Comment Jong goldman March 19, 2006 08:56 AM CURRENT NON-TOBACC O USER-HX OF USE [facility] Tobacco Use History This section includes a history of the smoking, or tobacco-related health factors, that were collected on or before the date of the Encounter. The data comes from the [place] facility where the Encounter took place. Date/Time Smoking Status/Tobacco Use Comment F acpito March 19, 2006 08:56 AM TOBACCO TERMINATION STAGE [facility] Encounter Notes: All associated encounter notes This section contains the clinical notes associated to the Encounter. Date/Time Encounter Note(s) Provider Source May 03, 2024 10:51 AM ADMINISTRATIVE NOT E: LOCAL TITLE: ADMINISTRATIVE STL STANDARD TITLE: ADMINISTRATIVE NOTE DATE OF NOTE: MAY 03, 2024@10:51 ENTRY DATE: MAY 03, 2024@10:51:48 AUTHOR: HUBER BERNARDO EXP COSIGNER: URGENCY: STATUS: COMPLETED ADMINISTRATIVE ST[facility] Has ADDENDA Current employee per HR staffing roster. No chart at , notified [facility]. Started second chart. /nishi BERNARDO Hearing Aid Consultant Signed: 05/03/2024 10:52 09/17/2024 ADDENDUM STATUS: COMPLETED No longer employed at [place] per HR Roster, retired chart. /nishi BERNARDO Hearing Aid Consultant Signed: 09/17/2024 09:51 HUBER BERNARDO [facility]
--- OUTSIDE RECORDS SUMMARY | 2024-11-01 18:15 | XMS_ITS | Continuity of Care Document ---
Author Name [facility] Organization [facility] Care Team Providers Care Health Promotion Educator Name Role Phone [facility] Unavailable Unavailable Problems Combined list of problems from [facility] and [facility] facilities. It does not include entries that were removed or entered in error. Problem Status Onset Date Problem Type Date of Resolution Comments Source Hearing Loss, Bilateral * (ICD-9-CM 389.9) Active Condition [facility] Lumbago * (ICD-9-CM 724.2) Active Condition [facility] Sinusitis * (ICD-9-CM 473.9) Active Condition [facility] Tinnitus * (ICD-9-CM 388.30) Active Condition [facility] Allergies, Adverse Reactions, Alerts Combined list of allergies from [facility] facilities. It does not include entries that were removed or entered in error. Substance Category Reaction Severity Reaction type Status Date Reported Comments Source No Known Allergies Drug allergy (disorder) active 05/08/2012 [facility] [place] Immunizations Combined list of available immunizations from the [facility] and [facility] facilities. Immunization Series Date Given Administered By Site Reaction Lot Number CVX Code Drug Research Methodologist Status Comments Source INFLUENZA, INJECTABLE, QUADRIVALENT, PRESERVATIVE FREE 2019 150 complet ed [facility] INFLUENZA, UNSPECIFIED FORMULATION 2012 88 complet ed [facility] INFLUENZA, UNSPECIFIED FORMULATION 2011 88 complet ed [facility] INFLUENZA, UNSPECIFIED FORMULATION 2008 88 complet ed [facility] Encounters Combined list of: 1) Encounters from [facility] facilities going back up to thelast 18 months. 2) Encounters from the [facility] facilities going back up to 280 months. Location Location Details Encounter Type Encounter Number Reason For Visit Attending Provider ADM Date DC Date Status Disposition Source [facility] Outpatient Encounter [id number] 03/20 [facility] Outpatient Encounter [id number] 05[facility]03 [facility] Social History Combined list of available smoking, tobacco, and other social history from [facility] facilities. Social History Type Response Date Comment [facility] e Tobacco smoking status NHIS CURRENT NON-TOBACCO USER-HX OF USE 03/19/2006 [facility] History of tobacco use TOBACCO TERMINATION STAGE 03/19/2006 [facility] This section is an empty social history section. DoD
== END 2024-10-26 07:47 | disposition home or self-care (01) ==
LOC: ANHSURGERY 07:51
PROVIDERS: PCP Internal Medicine; Visit Provider Orthopaedic Surgery
DX: Z01.818 Encounter for other preprocedural examination (principal); M16.11 Unilateral primary osteoarthritis, right hip; R00.1 Bradycardia, unspecified
CPT/HCPCS: 80048; 80307; 82040; 83036; 85025; 87081; 93005

== ENCOUNTER 2024-11-16 00:24 | Day surgery (SDC) | payer OTHER, SELFPAY ==
[2024-10-26 08:11] VITALS: BP 148/83; PULSE 66; RESP 16; TEMP 37.2; O2SAT 100; BMI 22.8
--- NOTE | 2024-10-26 08:36 | PC.NURSE ---
Report to the Outpatient Waiting Room, entrance under the green pavilion located off [facility], at time ___6:00AM____ on date ___11/16/24____. Planned Procedure Time: __7:30AM .? Time changes happen often and if your time is changed the preop area will call you the afternoon before. - You and your visitor will be asked to self-screen and do not enter if you have any COVID symptoms. Please call surgeon if you need to reschedule. - A mask is optional within the hospital at this time. Patients may have clear liquids (water, carbonated beverages, clear teas, apple juice) until 3 hours prior to surgery (4:30AM) with a maximum of 20 ounces. - No food from midnight until time of surgery and no smoking. This includes no chewing gum, candy or mints. Take only the following medications with a SIP of water on the morning of surgery: __FELODIPINE. MAY USE ALBUTEROL INHALER AND LYRICA NEEDED___ DO NOT STOP ANY OF YOUR OTHER PRESCRIPTION MEDICATIONS PRIOR TO SURGERY EXCEPT THE FOLLOWING Medications to discontinue per physician HOLD MELOXICAM (NSAIDS) AND ALL VITAMINS/SUPPLEMENTS 7 DAYS PRE-OP PER DR GUSMAN Date to take last dose 11/08/24 Please no make-up, nail angolan, hairspray, perfume, deodorant, or body powder the day of surgery.? No jewelry (including any body piercings) or valuables the day of surgery, leave them at home.? Please take a shower or bath the night before, or the morning of, surgery with an antibacterial soap.? Wear comfortable, loose fitting clothing.? Children are encouraged to wear pajamas. - Jewelry must be removed prior to entering the operating room.? Rings and piercings that are not removed may be cut off. - The hospital will not accept responsibility for valuables.? - Please leave all valuables, including medications, at home the day of surgery. If you are going home after surgery, a licensed truss driver helper must drive you home.? - NO public transportation without another adult if you receive anesthesia. - We recommend that an adult stay with you for 24 hours following discharge. - We also recommend that you do not drive, make important decision, drink alcoholic beverages, or take any drugs that were not prescribed by your health care provider for at least 24 hours after your discharge time. Follow any additional instructions given to you from your surgeon. Telephone instructions given to ____PATIENT and asked if any additional questions and then verbalized understanding. Patient advised to call surgeon office or pre surgery nurse liaison [phone] if any additional questions.
--- NOTE | 2024-11-15 12:53 | PM.IMHP ---
H&P: HPI History of Present Illness Date/Time: 11/15/24 12:53 Chief Complaint: Right hip DJD Narrative: 58-year-old male presents today for a right anterior total hip arthroplasty. Patient underwent left anterior total hip arthroplasty in August of 2023. He had excellent results very happy with his left total hip arthroplasty. His right hip he has moderately severe osteoarthritis. He is having rather significant symptoms on a daily basis. He has been on meloxicam 15 mg daily. At this point patient feels he is having significant amount of symptoms daily basis and would rather proceed with total hip arthroplasty rather than continue nonsurgical treatment. Review of Systems Review of Systems: All systems reviewed & are unremarkable except as noted in HPI and below PMFSH Past Medical History Medical History Carpal tunnel syndrome HTN (hypertension) with goal to be determined TUSHAR (obstructive sleep apnea) Surgical History Surgical History History of colonoscopy with polypectomy 3 years ago. Findings of internal hemorrhoids and benign polyps. History of right knee surgery History of shoulder surgery bilateral History of sinus surgery History of surgery on left wrist Family History Family History Father Family history of lung cancer, Onset Age: 79 Patient's father is Mother Family history of diabetes mellitus in first degree relative Hypertension Cerebrovascular accident Carcinoma of colon Sibling Asthma Social History Social History Social History: Primary care provider is Dr. Molina. Smoking packs per day: 1 Smoking cigarettes per day: 20.0 Years smoked: 8 Smoking pack-years: 8.00 Smoking status: Former smoker Tobacco type: cigarettes Second hand tobacco smoke exposure: Yes Smoking end date: 04/19/91 Alcohol intake: former Substance use: never Substance use type: does not use Other substance usage details: PT STATES HE REFUSES TO ANSWER Last use: No use in the past few days. Do You Feel Safe in your Home?: Yes Lack of Transportation: No Lack of Food: Never True Current Housing: I Have Housing Concerned About Future Housing: No Difficulty Paying Gas/Electric Bills: No Difficulty Paying for Meds: No Currently Unemployed: No Education: Trade/Vocational Certificate Difficulty w/ Childcare or Family Care: No Living arrangements: with family Additional living arrangements comments: S.O. Occupation/Education: retired Additional occupation/education comments: [employer] Gender identity (if verbalized by the patient): Male Spiritual care concerns: No Meds Home Medications and Allergies Home Medications ?Medication ?Instructions ?Recorded ?Confirmed ?Type cetirizine 10 mg capsule (Zyrtec) 10 mg PO HS 02/29/20 10/26/24 History albuterol sulfate 90 mcg/actuation 2 puff inhalation Q4-6H PRN 12/23/23 10/26/24 Rx aerosol inhaler Shortness Of Breath Or Wheezing #25.5 grams felodipine 10 mg tablet,extended 10 mg PO DAILY #90 tabs 01/12/24 10/26/24 Rx release 24 hr montelukast 10 mg tablet 10 mg PO HS #90 tabs 03/01/24 10/26/24 Rx (Singulair) trazodone 100 mg tablet 100 mg PO QHS #90 tabs 03/17/24 10/26/24 Rx fluticasone propionate 50 See Rx Instructions .Route 08/20/24 10/26/24 Rx mcg/actuation nasal .COMPLEX #48 grams spray,suspension azelastine 137 mcg (0.1 %) nasal 2 spray intranasal Q12H #90 mL 10/18/24 10/26/24 Rx spray meloxicam 15 mg tablet 15 mg PO DAILY #30 tabs 10/18/24 10/26/24 Rx anastrozole 1 mg tablet 1 mg PO WEEKLY 10/26/24 10/26/24 History pregabalin 75 mg capsule 75 mg PO Q12H 10/26/24 10/26/24 History tadalafil 5 mg tablet (Cialis) 5 mg PO ONCE PRN sexual activity 10/26/24 10/26/24 History testosterone undecanoate 237 mg 237 mg PO BID 10/26/24 10/26/24 History capsule (Jatenzo) Allergies Allergy/AdvReac Type Severity Reaction Status Date / Time No Known Allergies Allergy Verified 10/26/24 08:01 Exam Narrative: 58-year-old male alert pleasant. He is 5 ft 8 and 151 lb BMI is 22.9. He walks without limp. Skin around the hip and groin crease are normal. Right hip flexes to 120 which causes him moderately severe anterior lateral hip pain. Internal rotation is at 10? which causes him severe anterior lateral hip pain. External rotation of 30 without discomfort. Stinchfield maneuver causes a moderately severe anterior lateral hip pain. He has normal abduction strength in lateral position. Mild tenderness over the greater trochanter. 2+ dorsalis pedis and posterior tibial artery pulse. Normal sensation the right lower extremity. No edema in either lower extremity. Resp: Auscultation: clear to auscultation bilaterally Cardio: Rate: regular rate Rhythm: regular rhythm Assessment and Plan Assessment and plan (1) Primary osteoarthritis of right hip: Code(s): M16.11 - Unilateral primary osteoarthritis, right hip Status: Acute Plan 58-year-old male who has moderately severe osteoarthritis the right hip. Patient is having significant symptoms on a daily basis. This is affecting his daily lifestyle. He feels he is ready proceed with total hip arthroplasty at this point. Surgical procedures well as the risks complications were discussed and all questions answered and will proceed. Patient's nasal swab was negative. Hemoglobin 13.5 and platelets are 172. Chem panel is all within normal limits creatinine 0.97.
--- NOTE | 2024-11-15 14:36 | P.PNAN_ITS ---
Anes - Initial Pre Proc Eval Procedure: Operation Date: 11/16/24 07:30 Proposed Procedures p Right Total Hip Arthroplasty Anterior Approach - Anmol Laws MD Date/Time: 11/15/24 14:36 Surgeon: Anmol Laws MD Pre Op Diagnosis: O A Rght Hip Patient Data Age: 58 Gender: M Height: 1.75 m Weight: 70.3 kg Last Vital Signs Temp 98.9 F 10/26/24 08:11 Pulse 66 10/26/24 08:11 Resp 16 10/26/24 08:11 BP 148/83 H 10/26/24 08:11 Pulse Ox 100 10/26/24 08:11 O2 Del Method Room Air 10/26/24 08:11 Allergies Allergy/AdvReac Type Severity Reaction Status Date / Time No Known Allergies Allergy Verified 11/16/24 06:37 Home Medications ?Medication ?Instructions ?Recorded ?Confirmed ?Type cetirizine 10 mg capsule (Zyrtec) 10 mg PO HS 02/29/20 11/16/24 History albuterol sulfate 90 mcg/actuation 2 puff inhalation Q4-6H PRN 12/23/23 10/26/24 Rx aerosol inhaler Shortness Of Breath Or Wheezing #25.5 grams felodipine 10 mg tablet,extended 10 mg PO DAILY #90 tabs 01/12/24 11/16/24 Rx release 24 hr montelukast 10 mg tablet 10 mg PO HS #90 tabs 03/01/24 11/16/24 Rx (Singulair) trazodone 100 mg tablet 100 mg PO QHS #90 tabs 03/17/24 11/16/24 Rx fluticasone propionate 50 See Rx Instructions .Route 08/20/24 11/16/24 Rx mcg/actuation nasal .COMPLEX #48 grams spray,suspension azelastine 137 mcg (0.1 %) nasal 2 spray intranasal Q12H #90 mL 10/18/24 11/16/24 Rx spray meloxicam 15 mg tablet 15 mg PO DAILY #30 tabs 10/18/24 11/16/24 Rx anastrozole 1 mg tablet 1 mg PO WEEKLY 10/26/24 11/16/24 History pregabalin 75 mg capsule 75 mg PO Q12H 10/26/24 11/16/24 History tadalafil 5 mg tablet (Cialis) 5 mg PO ONCE PRN sexual activity 10/26/24 10/26/24 History testosterone undecanoate 237 mg 237 mg PO BID 10/26/24 11/16/24 History capsule (Jatenzo) Patient hx anesthesia problems: none Family hx anesthesia problems: none Results Review: All pre-operative results and documents have been reviewed as part of the pre- operative evaluation. [facility] Past Medical History Medical History Carpal tunnel syndrome HTN (hypertension) with goal to be determined TUSHAR (obstructive sleep apnea) Surgical History Surgical History History of colonoscopy with polypectomy 3 years ago. Findings of internal hemorrhoids and benign polyps. History of right knee surgery History of shoulder surgery bilateral History of sinus surgery History of surgery on left wrist Family History Family History Father Family history of lung cancer, Onset Age: 79 Patient's father is Mother Family history of diabetes mellitus in first degree relative Hypertension Cerebrovascular accident Carcinoma of colon Sibling Asthma Social History Social History Social History: Primary care provider is Dr. Molina. Smoking packs per day: 1 Smoking cigarettes per day: 20.0 Years smoked: 8 Smoking pack-years: 8.00 Smoking status: Former smoker Tobacco type: cigarettes Second hand tobacco smoke exposure: Yes Smoking end date: 04/19/91 Alcohol intake: former Substance use: never Substance use type: does not use Other substance usage details: PT STATES HE REFUSES TO ANSWER Last use: No use in the past few days. Do You Feel Safe in your Home?: Yes Lack of Transportation: No Lack of Food: Never True Current Housing: I Have Housing Concerned About Future Housing: No Difficulty Paying Gas/Electric Bills: No Difficulty Paying for Meds: No Currently Unemployed: No Education: Trade/Vocational Certificate Difficulty w/ Childcare or Family Care: No Living arrangements: with family Additional living arrangements comments: S.O. Occupation/Education: retired Additional occupation/education comments: [employer] Gender identity (if verbalized by the patient): Male Spiritual care concerns: No Anes - Eval Final PreProcedure Day of Procedure 11/15/24 14:36 Patient weight: normal Heart: regular rate and rhythm Lungs: clear to auscultation Airway: Mallampati scale class II Neurological: alert and oriented Last oral intake: >/= 8 hours ASA classification: III Emergent: no Anesthetic plan: proceed Anesthesia type and monitoring: general ETT and standard monitoring Results Review: All pre-operative results and documents have been reviewed as part of the pre- operative evaluation. Informed Consent: The patient's anesthetic plan and its attendant risks and benefits were discussed with the patient/family/POA. Questions were solicited and answers provided to the satisfaction of the patient/family/POA.
[2024-11-16] VITALS (24 sets, daily range): BP systolic 97–130; BP diastolic 58–90; PULSE 56–91; RESP 11–23; TEMP 36.1–37.3; O2SAT 93–100
--- NOTE | ~2024-11-16 | XR_ITS ---
EXAMINATION: XR surgery orthopedic DATE: 11/16/2024 11:14 INDICATION: Intraoperative evaluation during right total hip arthroplasty TECHNIQUE: Single frontal fluoroscopic view of the right hip was obtained. The fluoroscopy exposure t willis was 0.8 minutes. Total DAP was 0.204 mGym^2. COMPARISON: 09/08/2024 FINDINGS: Interval placement of a new noncemented right total hip arthroplasty which appears well seated in adelita r-anatomic alignment. The acetabular component is affixed with at least a single screw. No fractures identified. IMPRESSION: 1. Right total hip arthroplasty in near-anatomic alignment, negative for postoperative purposes. See procedure note for further detail. Reviewed, dictated and finalized at location A. GATION TECHNICIAN IMPRESSION: 1. Right total hip arthroplasty in near-anatomic alignment, negative for postop erative purposes. See procedure note for further detail.
--- NOTE | ~2024-11-16 | XR_ITS ---
EXAMINATION: XR hip RT 1V w AP pelvis DATE: 11/16/2024 12:45 INDICATION: Postoperative evaluation following right total hip arthroplasty TECHNIQUE: Anteroposterior and lateral views of the right hip were obtained. COMPARISON: Radiographs dated 09/08/2024 FINDINGS: Interval placement of a noncemented right total hip arthroplasty which appears well seated in near an atomic alignment.Unchanged left total hip arthroplasty which also appears well seated in near-anatomi c alignment. Small amount of expected subcutaneous gas in the postoperative bed. No fractures identi fied. IMPRESSION: 1. Right total hip arthroplasty, negative for postoperative purposes. Reviewed, dictated and finalized at location A. [facility] [employer]
--- OUTSIDE RECORDS SUMMARY | 2024-11-16 00:29 | XMS_ITS | Patient Health Summary ---
Author Organization [facility] Address [address] [place] [address] Care Team Providers Care Senior Marketing Analyst Name Role Phone Álvaro Molina DO Primary Care Provider Note from [facility],non-owned Affiliates and Associated Physician Practices is amultiple site organization consisting of ambulatory clinics and hospital sitesin [place], [place], [place] and [place]. This disclosure is being madepursuant to the Care Everywhere program and may not contain all information available regarding this patient. Last updated 18.[facility] Allergies No known active allergies Medications * Be aware that medications may not be up to date on this document. Alwaysverify current medications with the patient. * PROAIR HFA 108 (90 Base) MCG/ACT inhaler(Started 05/12/2021) Inhale 2 (two) puffs by mouth as directed * anastrozole (ARIMIDEX) 1 MG tablet(Started 05/12/2021) Take 1 (one) tablet by mouth once daily * azelastine (ASTELIN) 0.1 % nasal spray(Started 05/21/2021) Pierce 1 (one) spray into each nostril as directed * felodipine CR 24hr (PLENDIL) 10 MG tablet(Started 05/18/2021) Take 1 (one) tablet by mouth as directed * fluticasone propionate (FLONASE) 50 MCG/ACT nasal spray(Started 05/21/2021) Pierce 1 (one) spray into each nostril 2 times daily * montelukast (SINGULAIR) 10 MG tablet(Started 04/02/2021) Take 1 (one) tablet by mouth once daily * sildenafil (VIAGRA) 100 MG tablet(Started 05/09/2021) Take 1 (one) tablet by mouth once daily as needed * B-D 3CC LUER-DARWIN SYR [id number]/2 21G X 1-1/2 3 ML MISC(Started 10/08/2020) as directed * traZODone (DESYREL) 100 MG tablet(Started 05/21/2021) Take 1 (one) tablet by mouth as directed * EPINEPHrine (EPIPEN) 0.3 MG/0.3ML auto-injector pen(Started 06/28/2021) Inject 0.3 mg into muscle once as needed for Anaphylaxis * celecoxib (CELEBREX) 200 MG capsule(Started 07/30/2021) Take 1 (one) capsule by mouth 2 times daily 2 refills by 07/30/2022 * testosterone cypionate (DEPO-TESTOSTERONE) 200 MG/ML injection(Started 09/19/2021) Inject 1 mL into muscle as directed * traMADol (ULTRAM) 50 MG tablet(Started 09/11/2021) Take 1 (one) tablet by mouth every 6 hours as needed for Pain * acetaminophen (TYLENOL) 325 MG tablet Take 1 (one) tablet to 2 (two) tablets by mouth every 6 hours as needed for Fever or Pain Maximum allowable Acetaminophen amount = 4 Grams (4000 mg) / 24 hours. * Cetirizine HCl (ZYRTEC ALLERGY PO) Take 1 tablet by mouth once daily as needed * ibuprofen (Motrin) 800 MG tablet(Started 09/25/2022) Take 1 (one) tablet by mouth every 6 hours as needed Active Problems Problem Noted Date Diagnosed Date Essential hypertension 02/19/2023 Chronic allergic conjunctivitis 02/19/2023 02/19/2023 Allergic rhinitis due to animal hair and dander 02/19/2023 02/19/2023 Allergic rhinitis 02/19/2023 02/19/2023 Allergic rhinitis due to pollen 02/19/2023 02/19/2023 Encounter for other administrative examinations 10/30/2022 Chronic sinusitis 10/30/2022 Adjustment disorder, unspecified 10/30/2022 Encounter for examination an d observation following work accident 10/30/2022 Hearing loss 10/30/2022 Major depressive disorder, single episode, unspe cified 10/30/2022 Low back pain 10/30/2022 Strain of muscle(s) and tend on(s) of the rotator cuff of left shoulder, subsequent encounter 10/30/2022 Tinnitus 10/30/2022 Adjustment disorder with depressed mood 10/30/19 23 Tear of left rotator cuff 03/06/2022 Acute post-operative pain Resolved Problems Problem Noted Date Diagnosed Date Resolved Date Cough 02/19/2023 02/19/2023 03/19/2023 Immunizations * Covid NewsBreak primary monovalent 12+ yr 0.3mL Purple cap(Given 11/09/2020) * INFLUENZA VACCINE(Given 10/01/2013, 08/20/2012, 07/18/2009) * INFLUENZA VACCINE, QUADR. (FLUZONE; FLULAVAL; FLUARIX; AFLURIA QUADRIVALENT; 6MO+), 0.5 ML (IIV4)(Given 09/13/2020) * PNEUMOCOCCAL PPSV23(Given 12/07/2020) Social History Tobacco Use Types Packs/Day Years Used Date Smoking Tobacco: Never Smokeless Tobacco: Never Tobacco Cessation:Counseling Given: Not Answered Alcohol Use Standard Drinks/Week Comments Yes 3 (1 standard drink = 0.6 oz pur e alcohol) Sex and Gender Information Value Date Recorded Sex Assigned at Not on file Gender Identity Not on file Sexual Orientation Not on file Last Filed Vital Signs Vital Sign Reading Time Taken Comments Blood Pressure 122/77 02/21/2022 1:15 PM CDT Pulse 63 02/21/2022 1:15 PM CDT Temperature 37.1 ??C (98.7 ??F) 02/21/2022 8:09 AM CD T Respiratory Rate 10 02/21/2022 1:20 PM CDT Oxygen Saturation 98% 02/21/2022 1:25 PM CDT Inhaled Oxygen Concentration - - Weight 74.8 kg (165 lb) 02/19/2023 8:54 AM CDT Height 175.3 cm (5' 9 ) 02/21/2022 8:09 AM CDT Body Mass Index 24.37 02/21/2022 8:09 AM CDT Medical Devices Implanted Type Area Gantry Rigger Device Identifier Shelf Expiration Date Model / Serial / Lot [place] [employer]ut Heal[employer] Adv 5.5mm Bcmps Slf Implanted:Qty: 2 on 02/21/2022 by Ned Wolfe MD at [facility] Left: Shoulder [employer] 08/19/2024 [id number] / / [id number] Procedures * ENDOTRACHEAL TUBE NOTE(Performed 02/21/2022) * MS SHOULDER ARTHROSCOPY(Performed 02/21/2022) Performed for Traumatic incomplete tear of left rotator cuff, initial encounter * PERIPHERAL BLOCK(Performed 02/21/2022) * XR PELVIS W LEFT HIP 2VW(Performed 02/15/2022) Performed for Left hip pain * MS DRAIN/INJECT LARGE JOINT/BURSA(Performed 08/28/2021) Performed for Left hip impingement syndrome, Primary osteoarthritis of left hip * MS DRAIN/INJECT LARGE JOINT/BURSA(Performed 08/28/2021) Performed for Shoulder impingement syndrome, left * US JOINT INJECTION OR ASPIRATE(Performed 08/27/2021) Performed for Left hip impingement syndrome, Primary osteoarthritis of left hip * MS DRAIN/INJECT LARGE JOINT/BURSA(Performed 06/05/2021) Performed for Left hip impingement syndrome * US JOINT INJECTION OR ASPIRATE(Performed 06/05/2021) Performed for Left hip pain, Left hip impingement syndrome * MS DRAIN/INJECT LARGE JOINT/BURSA(Performed 06/05/2021) Performed for Chronic left shoulder pain, Shoulder impingement syndrome, left Results * ETT LINE PERFORMABLE (02/21/2022 11:01 AM CDT) Narrative Felipa Calvert APRN-MACHINES TECHNICIAN - 02/21/2022 11:01 AM CDT Felipa Calvert APRN-MACHINES TECHNICIAN ? 02/21/2022 11:03 AM Endotracheal Tube Placement: ? Patient Location: OR. Procedure: intubation (16681). Procedure Section: ?? Sedation: under general anesthesia. Indications for Airway Management: ??anesthesia Procedure pretreatments used? ??No Induction: standard IV Patient Position: ??supine Mask Ventilation: easy with oral airway. Blade Type: Video (Provue 3) Blade Size: 3 Laryngoscopy View: grade 1 (full cords) Intubation Adjuncts: stylet and video laryngoscope Tube: endotracheal tube Placement: oral Tube type: cuff - inflated Tube Size (MM): 7.5 Depth of Insertion (CM): 22 Measured From: lips Cuff Inflated With: air Number of Attempts: 1. Placement Verified By: direct visualization, bilateral breath sounds, chest auscultation and CO2 monitor Tube secured with: ??adhesive tape. Dentition unchanged? ??Yes Difficult Airway? ??No. Staff Section ? Anesthesia Provider: Ned St MD, Performed the procedure ? Provider #1: Luigi Carcamo, RN, Performed the procedure. ? Provider #2: Felipa Calvert APRN-MACHINES TECHNICIAN, Performed the procedure. Ned St MD GENERAL ANESTHESIA O RDERABLES * PERIPHERAL GAYATRI BLOCK PERFORMABLE (02/21/2022 9:56 AM CDT) Narrative Ned St MD - 02/21/2022 9:[address] MD ? 02/21/2022 10:00 AM Peripheral ??Nerve Block ?? Procedure: Peripheral Nerve Block Patient Location: ??Pre-op Preprocedure Section: ?? Indications: at surgeon's request and postop pain management. Pre-anesthetic Checklist: Patient identified, IV Checked, Site examined and clear, Risks and benefits discussed, Surgical consent verified, Monitors and equipment, Time-out performed, Informed consent obtained, Pre-op evaluation done, Questions answered/anesthesia questions answered, Allergies reviewed and Removal hand/wrist jewelry Monitors: BP, Pulse Ox, EKG and ETCO2. Patient Condition: ??sedated, meaningful contact maintained throughout procedure Patient Position: sitting Patient Sedated? ??Yes ? Sedation Type: ??moderate ? Sedation Agents: ??fentaNYL (PF) (SUBLIMAZE) injection - Intravenous 50 mcg - 02/21/2022 9:34:00 AM midazolam (VERSED) injection - Intravenous 2 mg - 02/21/2022 9:34:00 AM Procedure Section ?? Laterality: left Block Performed: ??interscalene Prep: ??Chloraprep Strerile Field: gloves, mask, hat/cap, patient draped and sterile ultrasound sleeve Skin localized with: lidocaine (XYLOCAINE) 1 % injection - Infiltration 1 mL - 02/21/2022 9:39:00 AM Needle Type: ??Suha Needle Gauge: ??18 Needle Length: ??150 mm Needle Depth: ??7 cm Catheter? Yes ? Cath threaded to/length at skin: ??6 ??cm ? Catheter Type: ??closed-ended ? Catheter Size: ??other - comments (20G) Ultrasound Guided? ?? Yes ? Technique: ??in plane ? Visualization: ??Preliminary scan performed, Important anatomical structures identified, Needle tip visualized throughout the procedure, Target identified, No intraneural or intravascular puncture occurred, Ultrasound image in chart, Local visualized surrounding nerve on ultrasound and Hydrodissection utilized Injection was made incrementally with constant monitoring and aspirations every 5 mL's Injection Assessment: ?? Slow fractionated injection Block Agents or Additives used? Yes Block agents used: ropivacaine (NAROPIN) 5 MG/ML (0.5%) injection - Infiltration 25 mL - 02/21/2022 9:52:00 AM Procedure Tolerance: tolerated well, performed while the patient was sedated and no immediate complications Assessment: completed Procedure Start Time: 02/21/2022 9:34 AM. Procedure End Time: 02/21/2022 9:55 AM. Procedure Total Time: 21 ??minutes. Staff Section ? Anesthesia Provider: Ned St MD, Performed the procedure ? Provider #1: Gwyn Singer DO. Additional Comments: I was present for the nerve block and assisted the resident in placing the block. ??Block performed at surgeon's request for post op pain. ?? . Ned St MD GENERAL ANESTHESIA O RDERABLES * XR PELVIS W LEFT HIP 2VW (02/15/2022 11:59 AM CDT) Anatomical Region Laterality Modality Pelvis Radiographic Siobhan ging 02/15/2022 12:0 8 PM CDT Narrative 02/15/2022 12:09 PM CDT XR PELVIS W LEFT HIP 2VW*[id number] EXAMINATION: ??X-ray of the pelvis and left hip joint, 3 views Exam Date: ??02/15/2022 11:54 AM HISTORY: Pain in left hip COMPARISON: No prior study is available for comparison. FINDINGS/IMPRESSION: Advanced degenerative changes of the left hip joint with severe reduction of the joint space and marginal spurring. Moderate degenerative changes of the right hip joint. The osseous structures are otherwise intact. No evidence of acute fractures. *Reading Radiologist: Dilip Ramírez on 02/15/2022 at 12:09 PM Procedure Note Dilip Ramírez MD - 02/15/2022 XR PELVIS W LEFT HIP 2VW*[id number] EXAMINATION: X-ray of the pelvis and left hip joint, 3 views Exam Date: 02/15/2022 11:54 AM HISTORY: Pain in left hip COMPARISON: No prior study is available for comparison. FINDINGS/IMPRESSION: Advanced degenerative changes of the left hip joint with severe reduction of the joint space and marginal spurring. Moderate degenerative changes of the right hip joint. The osseous structures are otherwise intact. No evidence of acute fractures. *Reading Radiologist: Dilip Ramírez on 02/15/2022 at 12:09 PM Devyn Rm DO DIAGNOSTIC IMAGI NG ORDERABLES * MS DRAIN/INJECT LARGE JOINT/BURSA (08/28/2021 9:10 AM GAUGE CHECKER) Narrative Norbert Israel III, MD - 08/28/2021 9:10 AM GAUGE CHECKER Norbert Israel III, MD ? 08/28/2021 ??9:14 AM Consent Given by: ??patient Indications: pain Local Anesthesia Used?: Yes ?? Joint Location: ??Hip Hip Laterality & Site: ??L hip joint Prep: patient was prepped and draped in usual sterile fashion (Femoral neurovascular bundle identified medially and marked) ?? Needle Size: ??22 G Medications ordered and administration documented through clinic-administered medications activity. Patient tolerance: ??Patient tolerated the procedure well with no immediate complications Norbert Israel III, MD PROCEDURE/MIN OR SURGICAL ORDERABLES * MS DRAIN/INJECT LARGE JOINT/BURSA (08/28/2021 9:10 AM GAUGE CHECKER) Narrative Norbert Israel III, MD - 08/28/2021 9:10 AM GAUGE CHECKER Norbert Israel III, MD ? 08/28/2021 ??9:14 AM Consent Given by: ??patient Indications: pain Local Anesthesia Used?: Yes ?? Joint Location: ??Shoulder Shoulder Large Joint Laterality & Site: ??L subacromial bursa Prep: patient was prepped and draped in usual sterile fashion ?? Needle Size: ??22 G Approach: ??Posterior Medications ordered and administration documented through clinic-administered medications activity. Patient tolerance: ??Patient tolerated the procedure well with no immediate complications Norbert Israel III, MD PROCEDURE/MIN OR SURGICAL ORDERABLES * US JOINT INJECTION OR ASPIRATE (08/27/2021 1:53 PM GAUGE CHECKER) Only the most recent of2 resultswithin the time period is included. Narrative [facility] - 08/27/2021 1:53 PM GAUGE CHECKER This procedure was performed by an Orthopedic physician in a clinic setting. ??Please see the procedure note. Norbert Israel III, MD US ORDERABLES [facility] * MS DRAIN/INJECT LARGE JOINT/BURSA (06/05/2021 3:20 PM CDT) Narrative Norbert Israel III, MD - 06/05/2021 3:20 PM CDT Norbert Israel III, MD ? 06/05/2021 ??3:20 PM Consent Given by: ??patient Indications: pain Local Anesthesia Used?: Yes ?? Joint Location: ??Hip Hip Laterality & Site: ??L hip joint Prep: patient was prepped and draped in usual sterile fashion ?? Needle Size: ??22 G Medications ordered and administration documented through clinic-administered medications activity. Patient tolerance: ??Patient tolerated the procedure well with no immediate complications Norbert Israel III, MD PROCEDURE/MIN OR SURGICAL ORDERABLES * MS DRAIN/INJECT LARGE JOINT/BURSA (06/05/2021 8:43 AM CDT) Narrative Norbert Israel III, MD - 06/05/2021 8:43 AM CDT Norbert Israel III, MD ? 06/05/2021 ??8:46 AM Consent Given by: ??patient Indications: pain Local Anesthesia Used?: Yes ?? Joint Location: ??Shoulder Shoulder Large Joint Laterality & Site: ??L subacromial bursa Prep: patient was prepped and draped in usual sterile fashion ?? Needle Size: ??22 G Approach: ??Posterior Medications ordered and administration documented through clinic-administered medications activity. Patient tolerance: ??Patient tolerated the procedure well with no immediate complications Norbert Israel III, MD PROCEDURE/MIN OR SURGICAL ORDERABLES Care Teams Senior Marketing Analyst Relationship Specialty Start Date End Date Álvaro Molina DO [address] [facility] [address] [place] [address] PCP - General 02/15/22
--- OUTSIDE RECORDS SUMMARY | 2024-11-16 00:30 | XMS_ITS | Data Portability ---
Author Organization [place] - [facility] [employer] Main Office Address [address] [place] [address] Care Team Providers Care Programming Manager Name Role Phone SEBASTIAN PARIS Primary Care Provider [phone] SEBASTIAN PARIS Referring Provider [phone] Assessment Encounter Date Assessment Date Assessment LastModified by Organization Details LastModified Time 08/04/2023 08/04/2023 Impression: Patient has rather advanced osteoarthritis left hip and extremely severe symptoms. He is familiar with his option to use a cane In the right hand which may be helpful. He would like to proceed with total hip replacement soon as possible. I have given him the Ortho info handout and direct anterior approach booklet for his review. He has been researching the different surgical approaches online and would like to have the anterior approach and this is why he chose to come in to see me about this since I do the anterior approach. I have discussed with him that there will be numbness around the incision. I have discussed risk of complications with him in detail. Risk of infection was discussed. He states his teeth are fine. I explained that we would want him to take antibiotics before dental work in the future for life. Risk of DVT discussed and explained my preference for using Eliquis 2.5 mg twice daily for 5 weeks after surgery for DVT Prophylaxis. We discussed the risk of heterotopic ossification and I explained that I would want him to take Celebrex 200 mg once a day for 10 days after the surgery and after that we would want him to stop the Celebrex so that he does not potentially impede ingrowth of his bone on to the hip implants. This was carefully explained to him. Risk of leg length discrepancy, fracture, dislocation, component wear or breakage necessitating need for revision surgery was reviewed. He asked about the implants that I used a discussed the brand names with him as well as the materials. We would use a ceramic head and a polyethylene liner. Risk of bleeding and risk of transfusion discussed. Risk of nerve injury discussed. Risk of medical complications such as heart attack stroke pulmonary embolism and were reviewed. We will have him avoid ibuprofen for 1 week before surgery but he can take the Celebrex right up until the morning of surgery but not take it the morning of surgery so that we can use Toradol instead for pain control. He would like to proceed as soon as possible we will try to accommodate him quickly. 60 minutes were spent in total care this patient more than half the time spent in [id number] care. Not available 08/07/2023 09:32:34 09/29/2023 09/29/2023 HPI: Patient returns. He is now 13 days out from left anterior total hip arthroplasty. Overall doing relatively well. He is taking no pain medicine at this point. He has finished up the Celebrex and his antibiotics. He on medicine he is on at this point is the Eliquis. He has been noticing recently he has been getting a pain that radiate all the way down the leg into his toes. This has been happening since he has been sleeping back he states and having leg elevated. Physical exam: Patient's incision is well healed. He has some mild swelling proximal thigh. No swelling in either lower extremity. He is walking very well today. He has his cane and his walker with him but is not really needing either 1. Impression: Patient is 13 days out left anterior total hip arthroplasty. Overall doing well. I would suspect that the pain he is having that radiating down to the toe is coming from his back. States he has no history of back problems but lying on his back with his leg elevated could have aggravated sciatic nerve. At this point can not sleep what ever weighs comfortable for him. Does not need keep leg elevated this point. Hopefully this symptom quiet down quickly. He may slowly start to increase activities as tolerated. We will see him back in 2 weeks with x-ray the hip. Not available 09/29/2023 15:54:36 10/15/2023 10/15/2023 Impression: Patient doing very well 4 weeks out after left hip replacement. I recommend that he exercise by walking for exercise to increase his stamina and endurance this is best weight exercise the muscles of left hip involved with walking. Would like to see him back in 1 year for x-rays left hip replacement for routine radiographic surveillance. Will see him back for left hip as needed. Not available 10/15/2023 18:35:41 2023 2023 HPI: 58-year-old male came in today for evaluation of his right knee pain. He has been having pain he states for over 30 years. He has had 2 arthroscopies done to the knee in the past. Last 1 was over 30 years ago in the 1980s. He has pain around the knee particularly over the anterior aspect of the knee. Inclines and declines seem to bother the knee quite a bit. He has tried different anti-inflammatori es in the past including [id number] as well as Celebrex and does not feel they made much of a difference in his symptoms. Patient recently had his left hip replaced done by us and this is doing very well. He does have moderate to moderately severe osteoarthritis of the right hip. He does note the right hand bothers him occasionally but overall very tolerable at this point. Physical exam: 58-year-old male very fit alert, he is 5 ft 8 and 151 lb. He has no definite effusion in the right knee. Range of motion is from 0-140 degrees. He has some mild tenderness over the medial joint line to palpation. Moderate to severe pain with patellofemoral grind and inhibition testing. No lateral joint line tenderness. His right hip flexes to 120, externally rotates to 40 internally rotates to 10 all with minor discomfort. Stinchfield maneuver is negative. No increased swelling in the lower extremities. He has normal stability in the knee. After Betadine alcohol prep 20 mg Kenalog and 3 cc of 0.5% ropivacaine was injected into the right knee. Impression: 58-year-old male who has early patellofemoral osteoarthritis seen on the lateral view. He does have osteoarthritis of the right hip but does not appear to have symptoms that could be coming from the hip radiating to the knee at this point. But certainly there is concern there may be some degree of his pain in the knee coming from the hip. I discussed all this with him. He does have an extremely painful patellofemoral joint on physical exam and the x-rays seem to correlate to this. I discussed options with him. He has tried different anti-inflammatori es in the past. I asked him if he has ever had diclofenac which she does not think he did. I recommend that we try this as this may hopefully help with the symptoms in the knee but also of the arthritis that is developing in the right hip. We talked about a cortisone injection and patient feels that he would like to proceed with that as well to try to get maximal improvement of his symptoms. I do not think that I would obtain MRI scan at this point is needed. He has had 2 previous arthroscopies and he has no significant joint line tenderness that would correlate to a tear or re-tear of the meniscus. He is unsure exactly what was done with the 2 previous surgeries so MRI would be questionable as to whether not changes could be postop or hips they are new. Certainly if he develops more joint line tenderness MRI scan would be needed. We will make an appointment to come back in a month for re-evaluation. He is doing very well he can call and cancel. Not available 2023 10:02:44 12/24/2023 12/24/2023 Impression: Patient has persistent anterior knee pain symptoms in his right knee did not respond very well to the cortisone injection. He does have significant patellofemoral joint arthritis best appreciated on the lateral x-ray view from 2023. A sunrise view looked relatively normal. I believe his anterior knee pain is due to the patellofemoral arthritis that he has. Provocative maneuvers of his right hip do not directly cause anterior knee pain but rather cause anterior and anterolateral hip pain only. I have discussed options with him. This is his chief complaint currently his right hip bothers him occasionally. I recommended that he resume the diclofenac think this gives him the best chance of having significant improvement in his anterior knee symptoms. I have given him instructions she describing possible side effects of anti-inflammatory medication use. He denies any liver kidney problems or peptic ulcer disease. I did explain to him that if he wishes to stay on this for a period of time we would recommend blood work after 3 months and then after every 6 months thereafter. I would also recommend a course of physical therapy for him. I will see him back in 6 weeks to assess his progress. 30 minutes were spent total care this patient more than half the time spent in [id number] care. Not available 12/25/2023 14:51:57 Plan of Treatment Reminders Order Date Submit Date Provider Last Modified By Organization Details Last Modified Time Details Appointments None recorded. Lab None recorded. Referral None recorded. Procedures injection/a spiration joint/bursa (PROC) - in office procedure, administere d by provider 2023 024 In-Office Order, Internal Use Only DO Not Attach Compendium DO Not Attach Compendium, Do Not Delete/merge, [id number] 4 18:47:23 Surgeries None recorded. Imaging XR, hip + pelvis, unilateral 2022 023 [email or web address] [facility] [place], [address], [place], [address], 3 09:46:18 XR, hip + pelvis, unilateral 2022 023 [facility] [place], [address], [place], [address], 3 11:42:23 XR, knee 2023 024 [facility] [place], [address], [place], [address], 4 18:47:23 Medication Orders Kenalog 10 mg/mL suspension for injection [address] [facility] [address] [facility], [place], [address], 4 18:47:23 ropivacaine (PF) 5 mg/mL (0.5 %) injection solution [address] [facility], [address] [facility], [place], [address], 4 18:47:23 diclofenac sodium 75 mg tablet,kimberley yed release [address] [facility] [facility] [place], [address], 4 18:47:23 diclofenac sodium 75 mg tablet,kimberley yed release 20[address] [facility] [facility] [place], [address], 4 14:47:07 Patient TargetsNo targets recorded. Patient InstructionsNo instructions recorded. Reason for Referral None Reported. Results Created Date Observation Date Name Description Value Unit Range Abnormal Flag Note LastModifiedBy Organization Detail LastModifiedTime 09/03/2009/03/2023 CBC/C OMPLE TE BLD COUNT W/DIF F white blood cells 4.6 x10'3 /uL 4.2-10 .8 Not Available [facility] (Lab) [address] [place], [address], 09/03/2023 12:40:12 09/03/20 23 09/03/2023 CBC/C OMPLE TE BLD COUNT W/DIF F red blood cells 4.87 x10'6 /uL 4.10-5 .80 Not Available [facility] (Lab) [address] [place], [address], 09/03/2023 12:40:12 09/03/2009/03/2023 CBC/C OMPLE TE BLD COUNT W/DIF F hemoglobin 14.6 g/dL 13.2-1 7.0 Not Available [facility] (Lab) [address] [place], [address], 09/03/2023 12:40:12 09/03/20 23 09/03/2023 CBC/C OMPLE TE BLD COUNT W/DIF F hematocrit 45.9 % 39.3-5 0.0 Not Available [facility] (Lab) [address] [place], [address], 09/03/2023 12:40:12 09/03/20 23 09/03/2023 CBC/C OMPLE TE BLD COUNT W/DIF F mean red cell volume 94.3 fL 80.0-9 7.0 Not Available [facility] (Lab) [address] [place], [address], 09/03/2023 12:40:12 09/03/20 23 09/03/2023 CBC/C OMPLE TE BLD COUNT W/DIF F mean red cell hemoglobin 30.0 pg 27.0-3 3.0 Not Available [facility] (Lab) [address] [place], [address], 09/03/2023 12:40:12 09/03/20 23 09/03/2023 CBC/C OMPLE TE BLD COUNT W/DIF F mean RBC HGB concentratio n 31.8 g/dL 31.0-3 6.0 Not Available [facility] (Lab) [address] [place], [address], 09/03/2023 12:40:12 09/03/2009/03/2023 CBC/C OMPLE TE BLD COUNT W/DIF F red cell distribution width 13.2 % 11.8-1 5.5 Not Available [facility] (Lab) [address] [place], [address], 09/03/2023 12:40:12 09/03/2009/03/2023 CBC/C OMPLE TE BLD COUNT W/DIF F platelets 215 x10'3 /uL 150-40 0 Not Available [facility] (Lab) [address] [place], [address], 09/03/2023 12:40:12 09/03/20 23 09/03/2023 CBC/C OMPLE TE BLD COUNT W/DIF F mean platelet volume 10.5 fL 9.0-12 .4 Not Available [facility] (Lab) [address] [place], [address], 09/03/2023 12:40:12 09/03/20 23 09/03/2023 CBC/C OMPLE TE BLD COUNT W/DIF F neutrophils 67.1 % 39.0-7 2.0 Not Available [facility] (Lab) [address] [place], [address], 09/03/2023 12:40:12 09/03/20 23 09/03/2023 CBC/C OMPLE TE BLD COUNT W/DIF F lymphocytes 22.2 % 16.0-4 7.0 Not Available [facility] (Lab) [address] [place], [address], 09/03/2023 12:40:12 09/03/20 23 09/03/2023 CBC/C OMPLE TE BLD COUNT W/DIF F monocytes 9.7 % 5.0-12 .0 Not Available [facility] (Lab) [address] [place], [address], 09/03/2023 12:40:12 09/03/2009/03/2023 CBC/C OMPLE TE BLD COUNT W/DIF F eosinophils 0.4 % 1.0-7. 0 low Not Available [facility] (Lab) [address] [place], [address], 09/03/2023 12:40:12 09/03/2009/03/2023 CBC/C OMPLE TE BLD COUNT W/DIF F basophils 0.4 % 0.0-2. 0 Not Available [facility] (Lab) [address] [place], [address], 09/03/2023 12:40:12 09/03/20 23 09/03/2023 CBC/C OMPLE TE BLD COUNT W/DIF F immature granulocytes 0.2 % 0.00-0 .50 Not Available [facility] (Lab) [address] [place], [address], 09/03/2023 12:40:12 09/03/20 23 09/03/2023 CBC/C OMPLE TE BLD COUNT W/DIF F neutrophils, absolute count 3.11 x10'3 /uL 1.5-8. 0 Not Available [facility] (Lab) [address] [place], [address], 09/03/2023 12:40:12 09/03/20 23 09/03/2023 CBC/C OMPLE TE BLD COUNT W/DIF F lymphocytes, absolute count 1.03 x10'3 /uL 1.07-3 .43 low Not Available [facility] (Lab) [address] [place], [address], 09/03/2023 12:40:12 09/03/20 23 09/03/2023 CBC/C OMPLE TE BLD COUNT W/DIF F monocytes, absolute count 0.45 x10'3 /uL 0.29-0 .99 Not Available [facility] (Lab) [address] [place], [address], 09/03/2023 12:40:12 09/03/20 23 09/03/2023 CBC/C OMPLE TE BLD COUNT W/DIF F eosinophils, absolute count 0.02 x10'3 /uL 0.02-0 .53 Not Available [facility] (Lab) [address] [place], [address], 09/03/2023 12:40:12 09/03/20 23 09/03/2023 CBC/C OMPLE TE BLD COUNT W/DIF F basophils, absolute count 0.02 x10'3 /uL 0.01-0 .08 Not Available [facility] (Lab) [address] [place], [address], 09/03/2023 12:40:12 09/03/20 23 09/03/2023 CBC/C OMPLE TE BLD COUNT W/DIF F immature granulocytes ,absolute 0.01 x10'3 /uL 0.00-0 .05 Not Available [facility] (Lab) [address] [place], [address], 09/03/2023 12:40:12 09/03/20 23 09/03/2023 CBC/C OMPLE TE BLD COUNT W/DIF F nucleated red blood cells 0.0 % -0 Not Available [facility] (Lab) [address] [place], [address], 09/03/2023 12:40:12 09/03/20 23 09/03/2023 CBC/C OMPLE TE BLD COUNT W/DIF F NRBC# 0.00 x10'3 /uL Not Available [facility] (Lab) [address] [place], [address], 09/03/2023 12:40:12 09/03/2009/03/2023 BASIC METAB OLIC PANEL sodium 140 mmol/ L 137-14 5 Not Available [facility] (Lab) [address] [place], [address], 09/03/2023 12:59:59 09/03/2009/03/2023 BASIC METAB OLIC PANEL potassium 4.7 mmol/ L 3.5-5. 1 Not Available [facility] (Lab) [address] [place], [address], 09/03/2023 12:59:59 09/03/2009/03/2023 BASIC METAB OLIC PANEL chloride 97 mmol/ L 98-107 low Not Available [facility] (Lab) [address] [place], [address], 09/03/2023 12:59:59 09/03/2009/03/2023 BASIC METAB OLIC PANEL carbon dioxide 36 mmol/ L 22-30 high Not Available [facility] (Lab) [address] [place], [address], 09/03/2023 12:59:59 09/03/20 23 09/03/2023 BASIC METAB OLIC PANEL anion gap 11.7 mmol/ L 14-22 low Not Available [facility] (Lab) [address] [place], [address], 09/03/2023 12:59:59 09/03/20 23 09/03/2023 BASIC METAB OLIC PANEL glucose 104 mg/dL 70-99 high Not Available [facility] (Lab) [address] [place], [address], 09/03/2023 12:59:59 09/03/20 23 09/03/2023 BASIC METAB OLIC PANEL BUN 25 mg/dL 8-19 high Not Available [facility] (Lab) [address] [place], [address], 09/03/2023 12:59:59 09/03/20 23 09/03/2023 BASIC METAB OLIC PANEL creatinine 1.05 mg/dL 0.66-1 .25 Not Available [facility] (Lab) [address] [place], [address], 09/03/2023 12:59:59 09/03/2009/03/2023 BASIC METAB OLIC PANEL GFR >60 Refer ence Range : [place] ge GFR Healt hy Adult : >60 mL/mi n/1.7 3 m2 Chron ic Kidne y Disea se: 15-60 mL/mi n/1.7 3 m2 Kidne y Failu re: <15/m L/min /1.73 m2 www.n iddk. nih.g ov The MDRD study equat ion has not been valid ated in child myra <18 years of age; pregn ant women ; the elder ly >85 years of age; or in some racia l or ethni c subgr oups, such as Hispa nics. Outsi de the valid ated stalin eters , estim ated GFR is less accur ate, requi ring clini rere judgm ent on a case- by-ca se basis . Clini rere inter preta tion for other races and ages must be made by the clini otva. The MDRD study equat ion has not been valid ated for the evalu ation of serum creat inine relat ed to nutri dina l statu s or medic ation usage . For perso ns <18 years of age, a pedia tric GFR calcu lator is avail able on the [facility] websi te: https ://branden montoya.rico perea.o rg/pr ofess ional s/kdo qi/gf r_cal culat or Not Available [facility] (Lab) [address] [place], [address], 09/03/2023 12:59:59 09/03/2009/03/2023 BASIC METAB OLIC PANEL calcium 10.3 mg/dL 8.4-10 .2 high Not Available [facility] (Lab) [address] [place], [address], 09/03/2023 12:59:59 09/03/2009/03/2023 MRSA/ STAPH AUREU S, NASAL , PCR MRSA, nasal NEGATI VE Not Available [facility] (Lab) [address] [place], [address], 09/03/2023 14:01:42 09/03/20 23 09/03/2023 MRSA/ STAPH AUREU S, NASAL , PCR staph aureus, nasal POSITI VE abnormal Not Available [facility] (Lab) [address] [place], [address], 09/03/2023 14:01:42 09/03/20 23 09/03/2023 TYPE AND SCREE N patient ABO group and Rh O POSITI VE Not Available [facility] (Lab) [address] [place], [address], 09/03/2023 14:11:54 09/03/20 23 09/03/2023 TYPE AND SCREE N patient antibody screen NEGATI VE Not Available [facility] (Lab) [address] [place], [address], 09/03/2023 14:11:54 09/17/2009/17/2023 CBC W/O DIFFE RENTI AL white blood cells 7.6 x10'3 /uL 4.2-10 .8 Not Available [facility] (Lab) [address] [place], [address], 09/17/2023 07:55:51 09/17/2009/17/2023 CBC W/O DIFFE RENTI AL red blood cells 3.73 x10'6 /uL 4.10-5 .80 low Not Available [facility] (Lab) [address] [place], [address], 09/17/2023 07:55:51 09/17/2009/17/2023 CBC W/O DIFFE RENTI AL hemoglobin 11.2 g/dL 13.2-1 7.0 low Not Available [facility] (Lab) [address] [place], [address], 09/17/2023 07:55:51 09/17/2009/17/2023 CBC W/O DIFFE RENTI AL hematocrit 34.5 % 39.3-5 0.0 low Not Available [facility] (Lab) [address] [place], [address], 09/17/2023 07:55:51 09/17/2009/17/2023 CBC W/O DIFFE RENTI AL mean red cell volume 92.5 fL 80.0-9 7.0 Not Available [facility] (Lab) [address] [place], [address], 09/17/2023 07:55:51 09/17/20 23 09/17/2023 CBC W/O DIFFE RENTI AL mean red cell hemoglobin 30.0 pg 27.0-3 3.0 Not Available [facility] (Lab) [address] [place], [address], 09/17/2023 07:55:51 09/17/2009/17/2023 CBC W/O DIFFE RENTI AL mean RBC HGB concentratio n 32.5 g/dL 31.0-3 6.0 Not Available [facility] (Lab) [address] [place], [address], 09/17/2023 07:55:51 09/17/2009/17/2023 CBC W/O DIFFE RENTI AL red cell distribution width 12.9 % 11.8-1 5.5 Not Available [facility] (Lab) [address] [place], [address], 09/17/2023 07:55:51 09/17/20 23 09/17/2023 CBC W/O DIFFE RENTI AL platelets 160 x10'3 /uL 150-40 0 Not Available [facility] (Lab) [address] [place], [address], 09/17/2023 07:55:51 09/17/2009/17/2023 CBC W/O DIFFE RENTI AL mean platelet volume 11.0 fL 9.0-12 .4 Not Available [facility] (Lab) [address] [place], [address], 09/17/2023 07:55:51 09/17/2009/17/2023 BASIC METAB OLIC PANEL sodium 137 mmol/ L 137-14 5 Not Available [facility] (Lab) [address] [place], [address], 09/17/2023 08:00:47 09/17/2009/17/2023 BASIC METAB OLIC PANEL potassium 3.8 mmol/ L 3.5-5. 1 Not Available [facility] (Lab) [address] [place], [address], 09/17/2023 08:00:47 09/17/20 23 09/17/2023 BASIC METAB OLIC PANEL chloride 103 mmol/ L 98-107 Not Available [facility] (Lab) [address] [place], [address], 09/17/2023 08:00:47 09/17/20 23 09/17/2023 BASIC METAB OLIC PANEL carbon dioxide 31 mmol/ L 22-30 high Not Available [facility] (Lab) [address] [place], [address], 09/17/2023 08:00:47 09/17/20 23 09/17/2023 BASIC METAB OLIC PANEL anion gap 6.8 mmol/ L 14-22 low Not Available [facility] (Lab) [address] [place], [address], 09/17/2023 08:00:47 09/17/20 23 09/17/2023 BASIC METAB OLIC PANEL glucose 97 mg/dL 70-99 Not Available [facility] (Lab) [address] [place], [address], 09/17/2023 08:00:47 09/17/20 23 09/17/2023 BASIC METAB OLIC PANEL BUN 14 mg/dL 8-19 Not Available [facility] (Lab) [address] [place], [address], 09/17/2023 08:00:47 09/17/20 23 09/17/2023 BASIC METAB OLIC PANEL creatinine 0.98 mg/dL 0.66-1 .25 Not Available [facility] (Lab) [address] [place], [address], 09/17/2023 08:00:47 09/17/20 23 09/17/2023 BASIC METAB OLIC PANEL GFR >60 Refer ence Range : [place] GFR Healt hy Adult : >60 mL/mi n/1.7 3 m2 Chron ic Kidne y Disea se: 15-60 mL/mi n/1.7 3 m2 Kidne y Failu re: <15/m L/min /1.73 m2 www.n iddk. nih.g ov The MDRD study equat ion has not been valid ated in child myra <18 years of age; pregn ant women ; the elder ly >85 years of age; or in some racia l or ethni c subgr oups, such as Hispa nics. Outsi de the valid ated stalin eters , estim ated GFR is less accur ate, requi ring clini rere judgm ent on a case- by-ca se basis . Clini rere inter preta tion for other races and ages must be made by the clini tova. The MDRD study equat ion has not been valid ated for the evalu ation of serum creat inine relat ed to nutri dina l statu s or medic ation usage . For perso ns <18 years of age, a pedia tric GFR calcu lator is avail able on the [facility] websi te: https ://branden w.rico perea.o rg/pr ofess ional s/kdo qi/gf r_cal culat or Not Available [facility] (Lab) [address] [place], [address], 09/17/2023 08:00:47 09/17/2009/17/2023 BASIC METAB OLIC PANEL calcium 8.8 mg/dL 8.4-10 .2 Not Available [facility] (Lab) [address] [place], [address], 09/17/2023 08:00:47 08/04/20 XR, hip + pelvi s, unila teral No observ ation record ed. [facility] [place] [address], [place], [address], 08/07/2023 09:28:43 08/04/20 23 01/06/2021 MRI, hip, w/o contr ast No observ ation record ed. [email or web address] Not Available 2022 18:44:07 09/16/20 23 09/16/2023 XR, hip, unila teral [facility] [place] [facility] [address] [place] [address] Patinic mendoza Name: TASHA ALMONTE Access ion #: [id number] Sex: M : 1965 4 6 Dictat ed By: Naye Beltran Attend ing Physic caridad: ANMOL HENDERSON Orderi ng Physic caridad: ANMOL HENDERSON Exam Date: 2022 10:47 AM Exam Name: XR HIP LT 2-3V Admitt ing Diagno sis(es ): Pelvis and left hip radiog raph CLINIC AL INDICA TION: TOTAL HIP ARTHRO PLASTY TECHNI QUE: 3 radiog raphic views of the pelvis and left hip were obtain ed. Compar marcelo: None FINDIN GS: Post left hip arthro plasty . There is no eviden ce of acute fractu re or disloc ation. The visual ized joint space is well mainta ined. The alignm ent is anatom ical. Small volume gas and fluid in the joint space IMPRES PENG: Expect ed findin gs post left hip arthro plasty . Electr onical ly Signed by: Naye Beltran at 2022 12:57: 39 PM Page 1 [email or web address] [facility] [address] [place], [address], 09/17/2023 16:59:04 09/17/20 23 08/31/2023 elect sheryl vasques am No observ ation record ed. [email or web address] Not Available 2022 17:49:27 10/15/20 23 XR, hip + pelvi s, unila teral No observ ation record ed. [facility] [place] [address], [place], [address], 10/15/2023 18:35:07 11/21/19 24 XR, knee No observ ation record ed. [email or web address] [facility] [place] [address], [address], 2023 09:57:58 Result Notes None recorded. Problems Name Problem SNOMED Code Status Onset Date Resolution Date Notes Provider Name and Address Organization Details Recorded Time Shoulder joint pain 696344968 Active Not Available [facility] 3 04:17:17 Pain of left hip joint 54450436348202 0 Active 2022 Not Available [facility] 3 04:17:18 Pain of right knee joint 98803725381793 0 Active 2023 PARAM Beatty, [employer] [facility] [employer] 4 09:43:09 Problem Notes None recorded. Procedures Surgical History Date Name Laterality Status Provider Name and Address Organization Details Recorded Time procedure on shoulder completed Arlen Hallman Claudia [employer] [facility] [employer] 08/04/2023 14:29:47 procedure on wrist completed Arlen Hallman Claudia [employer] [facility] [employer] 08/04/2023 14:29:54 Imaging Results Imaging Date Name Status LastModified by Organization Details LastModified Time 08/04/2023 XR, hip + pelvis, unilateral completed [facility] [place] [address], [address], 08/07/2023 09:28:43 01/06/2021 MRI, hip, w/o contrast completed Information not available 08/04/2023 18:44:07 09/16/2023 XR, hip, unilateral completed [email or web address] [facility] (Imaging) [address] [place], [address], 09/17/2023 16:59:04 08/31/2023 electrocardiogram completed Informa tion not available 09/17/2023 17:49:27 10/15/2023 XR, hip + pelvis, unilateral completed [facility] [place] [address], [place], [address], 10/15/2023 18:35:07 2023 XR, knee completed [email or web address] [facility] [place] [address], [place], [address], 2023 09:57:58 Procedure Notes None recorded. Medical Equipment None Reported. Allergies No known drug allergies Medications Name Sig Start Date Stop Date Status Note LastModified by Organization Details LastModified Time celecoxib 200 mg capsule 11/21 completed Not Available Not Available Not Available anastrozole 1 mg tablet active Not Available Not Available Not Available azithromyci n 250 mg tablet TAKE 2 TABLETS BY MOUTH ON DAY 1, AND THEN TAKE 1 TABLET BY MOUTH ONCE A DAY ON DAY 2 THROUGH DAY 5 09/29 completed Not Available Not Available Not Available ibuprofen 800 mg tablet TAKE 1 TABLET BY MOUTH EVERY 6 HOURS NEEDED 09/29 completed Not Available Not Available Not Available hydrocodone 5 mg-acetamin ophen 325 mg tablet TAKE 1 TABLET BY MOUTH EVERY 6 HOURS NEEDED FOR PAIN 09/29 completed Not Available Not Available Not Available tramadol 50 mg tablet TAKE 1 TO 2 TABLETS BY MOUTH EVERY 6 HOURS NEEDED FOR PAIN 09/29 completed Not Available Not Available Not Available acetaminoph en 500 mg tablet active Not Available Not Available Not Available sildenafil 100 mg tablet active Not Available Not Available Not Available amoxicillin 875 mg tablet TAKE 1 TABLET BY MOUTH EVERY 12 HOURS UNTIL GONE 08/04 completed Not Available Not Available Not Available trazodone 100 mg tablet active Not Available Not Available Not Available Kenalog 10 mg/mL suspension for injection in office 2023 active [facility]: 0003- 0494- 20 Not Available Not Available Not Available amitriptyli ne 10 mg tablet 07/22 completed Not Available Not Available Not Available cephalexin 500 mg capsule TAKE 1 CAPSULE BY MOUTH EVERY 6 HOURS FOR 10 DAYS THEN DISCONTIN UE 09/29 completed Not Available Not Available Not Available oseltamivir 75 mg capsule TAKE 1 CAPSULE BY MOUTH TWICE DAILY FOR 5 DAYS 09/29 completed Not Available Not Available Not Available diclofenac sodium 75 mg tablet,kimberley yed release Take 1 tablet twice a day by oral route. 2023 active Not Available Not Available Not Avai lable felodipine ER 10 mg tablet,exte nded release 24 hr active Not Available Not Available Not Available montelukast 10 mg tablet active Not Available Not Available Not Available codeine 10 mg-guaifene sin 100 mg/5 mL oral liquid 07/22 completed Not Available Not Available Not Available mupirocin 2 % topical ointment APPLY OINTMENT IN BOTH NOSTRILS TWICE DAILY DIRECTED FOR 5 DAYS STARTING 09/11/2309/29 completed Not Available Not Available Not Available azelastine 137 mcg (0.1 %) nasal spray 09/29 completed Not Available Not Available Not Available epinephrine 0.3 mg/0.3 mL injection, auto-inject or 09/29 completed Not Available Not Available Not Available testosteron e cypionate 200 mg/mL intramuscul ar oil active Not Available Not Available Not Available ibuprofen 600 mg tablet active Not Available Not Available Not Available methylpredn isolone 4 mg tablets in a dose pack 07/22 completed Not Available Not Available Not Available albuterol sulfate HFA 90 mcg/actuati on aerosol inhaler active Not Available Not Available Not Available BD Luer-Damion Syringe 3 mL 21 gauge x 1 1/2 active Not Available Not Available Not Available fluticasone propionate 50 mcg/actuati on nasal spray,suspe nsion active Not Available Not Available Not Available Hibiclens 4 % topical liquid Perform daily total body-wash for 5 days starting 09-11-2309/29 completed Not Available Not Available Not Available tadalafil 5 mg tablet 09/29 completed Not Available Not Available Not Available carisoprodo l 250 mg tablet 09/29 completed Not Available Not Available Not Available azelastine 205.5 mcg (0.15 %) nasal spray 07/22 completed Not Available Not Available Not Available AndroGel 20.25 mg/1.25 gram per pump act. (1.62 %) transdermal gel 07/22 completed Not Available Not Available Not Available ropivacaine (PF) 5 mg/mL (0.5 %) injection solution in office 2023 active Not Available Not Available Not Avai lable Eliquis 2.5 mg tablet TAKE 1 TABLET BY MOUTH EVERY 12 HOURS FOR ANTICOAGU LANT FOR 5 WEEKS THEN DISCONTIU E 11/21 completed Not Available Not Available Not Available Vitals Date Recorded Body height Body mass index (BMI) Body weight Provider Name and Address Organization Details Last Updated DateTime 08/04/2023 173.99 cm 22.6 kg/m2 81118.45 g FAISAL Ferrari [facility] 08/04/2023 14:33:10 Date Recorded Body height Provider Name an d Address Organization Details Last Updated DateTime 09/29/2023 173.99 cm Arlen Hallman [facility] 09/29/2023 15:25:39 Date Recorded Body height Provider Name an d Address Organization Details Last Updated DateTime 10/15/2023 173.99 cm Arlen Hallman Claudia [facility] [employer] [facility] 10/15/2023 09:33:28 Date Recorded Body height Provider Name an d Address Organization Details Last Updated DateTime 2023 173.99 cm Felipa Norton [facility] L [facility] 2023 09:01:23 Date Recorded Body height Provider Name an d Address Organization Details Last Updated DateTime 12/24/2023 173.99 cm Arlen Lexx FAISAL [facility] 12/24/2023 11:29:49 Social History Question Answer Notes LastModified by Organizat ion Details LastModified Time Tobacco Smoking Status Former Smoker [facility] 08/04/2023 14:29:37 What Is Your Level Of Alcohol Consumption? None [email or web address] Information not available 08/04/2023 How Much Tobacco Do You Smoke? 2 PPD [email or web address] Information not available 08/04/2023 Sex: Unknown Functional Status None recorded. Mental Status None recorded. Family History Relationship Description Onset Age of this Age Resolved Age Notes LastModified by Organization Details LastModified Time Mother Family history of malignant neoplasm [email or web address] Not available 2022 14:28:55 Mother Diabetes mellitus [email or web address] Not available 2022 14:29:12 Father Hypertensive disorder [email or web address] Not available 2022 14:29:04 Medical History Condition Response ARTHRITIS Y Past Encounters Encounter ID Performer Location Encounter Start Date Encounter Closed Date Diagnosis/Indication Diagnosis SNOMED-CT Code Diagnosis ICD10 Code Diagnosis Note [id number] Anmol Laws MD [facility] [place] [address] [place] [address] 08/04/2023 13:56:12 08/07/2023 09:46:18 Pain of left hip joint 1400305868 19394 M25.356 [id number] DONNIE Roger [facility] [place] [address] [place] [address] 09/29/2023 15:10:47 09/29/2023 16:14:28 History of total replacement of left hip joint 8931293904 307675 Z96.405 [id number] Anmol Laws MD [facility] [place] [address] [place] [address] 10/15/2023 09:10:16 10/17/2023 11:42:22 History of total replacement of left hip joint 3138370304 596779 Z96.285 [id number] DONNIE Roger [facility] [place] [address] [place] [address] 2023 08:44:11 2023 10:07:58 Pain of right knee joint 2334492341 88927 M25.910 [id number] Anmol Laws MD [facility] [place] [address] [place] [address] 12/24/2023 11:23:02 12/25/2023 14:53:00 Pain of right knee joint 0577419994 25048 M25.561 Health Concerns Section Related Observation LastModified by Organization Detai ls LastModified Time None Recorded Concern Status LastModified by Organization Details LastModified Time None Recorded Advance Directives Directive None Recorded Payers Encounter Date Sequence Insurance Name Policy Number Policy Christianson Covered Member ID Christianson Member ID Guarantor Name 08/04/2023 1 [facility] (O) [id number] Tasha Carrington [id number] Tasha Carrington 09/29/2023 1 [facility] (O) [id number] Ramont A Zeb [id number] Ramont A Quemado 10/15/2023 1 [facility] (O) [id number] Ramont A Zeb [id number] Ramont A Quemado 2023 1 [facility] (O) [id number] Ramont A Quemado [id number] Ramont A Quemado 12/24/2023 1 [facility] ([facility] [id number] Ramont A Quemado [id number] Ramont A Qu[place]ado Notes Date Note Type Note Provider Name and Address Organization Details Recorded Time 08/04/2023 text/html Patient is a 57-year-old gentleman referred by Dr. Lance for evaluation of his left hip. He started having pain in his left hip in 2020 after a fall at work In November of 2020. 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 He has been off work since that time. X-rays obtained at that time showed osteoarthritis with hypertrophic osteophytes and mild joint space narrowing on 01/15/2021. Subsequent MRI scan of left hip was obtained on January 16, 2021 which showed patchy abnormal high T2 low T1 signal superior medial subchondral femoral head consistent with bone marrow edema secondary to osteoarthritis. Minor subchondral cyst or erosion left superior acetabulum. Small benign subchondral cyst at the lateral right femoral head neck junction likely pits pit. MRI scan and previous x-rays were reviewed. Patient has been treating this with non operative strategies including course of physical therapy, is had 2 cortisone injections in the hip the last 1 last year. The 1st 1 helped 3 weeks the 2nd injection only helped 10 days. These were ordered by Dr. Whyte who he was seen following rotator cuff repair surgery at [facility]. He asked Dr. Whyte to do his hip replacement but was advised that Dr. Whyte is not doing that operation but rather specializes in the shoulder. He has difficulty walking very far. He can only walk about 200 ft that he has to stop and rest he limps. He has difficulty putting on his shock and shoes. Climbing stairs sitting walking are all painful. Lying in bed is more comfortable. In fact when he sits he has to sit on the edge of the chair so that is hip is extended out straight. He cannot tolerated having the hip flexed for any. Time which exacerbates his anterior groin and lateral hip pain. He is severely impaired by his and limitation of function. He has been taking Celebrex 200 mg daily. On some days he will take 200 mg or 4 mg of ibuprofen instead. He assures me that he never combines them. He complains of pain lateral hip anterolateral hip and anterior groin. His previous surgeries include knee arthroscopies 2 of them on the right knee in 1983 and 1987. He had shoulder surgery on the right rotator cuff repair by Dr. Jimenez in 2005. Left shoulder rotator cuff repair by Dr. Whyte in 2021 and is well. He recently had right carpal tunnel release May 16, 2023 and he still has some tenderness at the palmar incision. His list of medications is reviewed. Anmol Laws MD [address], [place] [address], [place], [address], [employer] 08/07/2023 09:33:10 10/15/2023 text/html Patient returns now 4 weeks after left total hip arthroplasty. He is very pleased with his result. Has no discomfort down the left hip he is walking normally does not need a gait aid and is very happy with his rapid progress. He does complain of some soreness twinges in the right hip where he has moderate to moderately severe superior joint space narrowing of the arthritis in the right hip is no where near as severe is a was on the left. Anmol Laws MD [address], [place] [address], [place], [address], [employer] 10/15/2023 18:35:54 12/24/2023 text/html patient returns. He is here today for follow-up of his right knee pain. He was seen 1 month ago. We gave him a cortisone shot in his right knee that time. He feels that it did help very much. Squatting is still painful anterior knee. Stairs are doing better. He has 13 steps to his basement he does go up and down frequently and that his not painful but if he pushes off on the right leg hard or if he shifts his weight the right will feel pain in the anterior right knee. We did give him a prescription for diclofenac. He underwent a revision carpal tunnel release surgery on the right wrist he stopped about 3 weeks before the surgery she will he only took it for short time. He is not sure that that was helpful. The the Again his past history is significant for 2 prior knee arthroscopies the right knee 30 or 40 years ago. He underwent left total hip arthroplasty on 09/16/2023. This is doing well. He does have known moderately Severe type 1 osteoarthritis of the right hip. The superior joint space measured 1.8 mm superolaterally on the most recent x-ray of his pelvis. Anmol Laws MD [address] [place] [address], [place] [address], [place], [address], [place] [facility] [employer] 12/25/2023 14:52:11
--- OUTSIDE RECORDS SUMMARY | 2024-11-16 00:30 | XMS_ITS | Clinical Summary ---
Author Organization [facility] Address [address] [place] [address] Care Team Providers Care Skein Winding Operator Name Role Phone Álvaro Molina MD Primary Care Provider [phone] Allergies No known active allergies Medications traZODone (DESYREL) 100 mg tabletIndications: insomnia associated with depression Take 1 tablet (100 mg total) by mouth nightly as needed for sleep 05/21/20 21 Active testosterone cypionate (DEPO-TESTOTERONE) 100 mg/mL injectionIndicatio ns:Androgen Deficiency Inject 0.5 mL (50 mg total) into the muscle as instructed every 7 days Takes on Fridays Active sildenafiL (VIAGRA) 100 mg tablet Take 1 tablet (100 mg total) by mouth as needed for erectile dysfunction 05/09/20 21 Active olopatadine (Pataday Once Daily Relief) 0.2 % ophthalmic solution Administer 1 drop into both eyes as needed for allergies Active montelukast (SINGULAIR) 10 mg tabletIndications: allergies Take 1 tablet (10 mg total) by mouth nightly 04/02/20 21 Active fluticasone propionate (FLONASE) 50 mcg/actuation nasal sprayIndications:A llergic Rhinitis Administer 1 spray into each nostril as needed for allergies 05/21/20 21 Active felodipine (PLENDIL) 10 mg 24 hr tabletIndications: hypertension Take 1 tablet (10 mg total) by mouth daily with lunch 05/18/20 21 Active EPINEPHrine 0.3 mg/0.3 mL auto-injection syringe Inject 0.3 mL (0.3 mg total) into the muscle as instructed daily as needed for anaphylaxis Gets allergy shots monthly 06/28/20 Active cetirizine (ZyrTEC) 10 mg tabletIndications: Allergic Rhinitis Take 1 tablet (10 mg total) by mouth nightly Active azelastine (ASTELIN) 137 mcg (0.1 %) nasal sprayIndications:a llergies Administer 1 spray into affected nostril(s) as needed for allergies 05/21/20 Active anastrozole (ARIMIDEX) 1 mg tabletIndications: estrogen cesario Take 1 tablet (1 mg total) by mouth once a week Day varies 05/12/20 Active albuterol HFA (PROVENTIL HFA,VENTOLIN HFA,PROAIR HFA) 90 mcg/actuation inhalerIndications :bronchitis Inhale 2 puffs every 4 (four) hours as needed for shortness of breath or wheezing 05/12/20 Active multivitamin tabletIndications: Vitamin Deficiency Prevention Take 1 tablet by mouth every morning Active acetaminophen (TYLENOL) 500 mg tablet Take 1 tablet (500 mg total) by mouth every 6 (six) hours as needed for pain 30 tablet 12/19/19 Active Additional Information Patient not taking.Informant: Self, Reported on 11/11/2024 ibuprofen (ADVIL,MOTRIN) 600 mg tablet Take 1 tablet (600 mg total) by mouth every 6 (six) hours as needed for pain 60 tablet 12/19/19 Active Additional Information Patient not taking.Informant: Self, Reported on 11/11/2024 meloxicam (MOBIC) 15 mg tablet Take 1 tablet (15 mg total) by mouth as needed for pain 02/11/20 24 Active acetaminophen (TYLENOL) 500 mg tablet Take 1 tablet (500 mg total) by mouth every 6 (six) hours as needed for pain 60 tablet 05/06/20 24 Active Additional Information Patient not taking.Reported on 11/11/2024 HYDROcodone-acetam inophen (NORCO) 5-325 mg per tabletIndications: Pain Take 1 tablet by mouth every 6 (six) hours as needed for pain 12 tablet 05/06/20 24 Active Additional Information Patient not taking.Reported on 11/11/2024 senna-docusate (PERICOLACE) 8.6-50 mg Take 1 tablet by mouth daily 30 tablet 05/06/20 24 Active ondansetron ODT (ZOFRAN-ODT) 4 mg disintegrating tablet Take 1 tablet (4 mg total) by mouth every 8 (eight) hours as needed for nausea or vomiting 20 tablet 05/06/20 24 Active Additional Information Patient not taking.Reported on 11/11/2024 pregabalin (LYRICA) 75 mg capsule Take 1 capsule (75 mg total) by mouth 2 (two) times a day 60 capsule 3 09/01/20 24 025 Active Additional Information Patient not taking.Reported on 11/11/2024 nortriptyline (PAMELOR) 10 mg capsuleIndications :Irritation of right ulnar nerve Take 1 capsule (10 mg total) by mouth nightly 30 capsule 11 10/27/19 25 026 Active Additional Information Patient not taking.Reported on 11/11/2024 Jatenzo 237 mg capsule TAKE 1 CAPSULE BY MOUTH TWICE DAILY WITH FOOD 10/15/20 24 Active Active Problems Problem Noted Date Diagnosed Date Cubital tunnel syndrome on right 02/25/2024 Trigger finger 02/25/2024 Carpal tunnel syndrome on right 10/22/2023 Encounters Date Type Department Care Team Description 11/12/2024 10:15 AM PUBLIC WELFARE WORKER Telemedicine [facility] Surgery [address] [place] [address] 6th [place] [address] Jhonatan Cole MD Cubital tunnel syndrome on right (Primary Dx) 11/11/2024 12:00 PM PUBLIC WELFARE WORKER Office Visit [facility] Surgery [facility] 6th [place] [address] Amanda Onofre MD Cubital tunnel syndrome on right (Primary Dx) 11/04/2024 1:30 PM PUBLIC WELFARE WORKER Office Visit [facility] Neurological Testing [address] [facility] 6th [place] [address] Right arm pain [M79.601] (Primary Dx) 11/04/2024 10:00 AM PUBLIC WELFARE WORKER Procedure visit [facility] Neurological Testing [address] [facility] 6th [place] [address] Cubital tunnel syndrome on right 11/03/2024 Telephone [facility] Surgery [facility] 6th [place] [address] Aidee Betancourt 11/01/2024 Orders Only [facility] Surgery [address] [place] [address] [place] [address] Amanda Onofre MD Cubital tunnel syndrome on right (Primary Dx) 10/27/2024 10:30 AM PUBLIC WELFARE WORKER Office Visit [facility] Surgery [address] [place] [address] [place] [address] Jhonatan Cole MD Irritation of right ulnar nerve (Primary Dx) 09/14/2024 Orders Only [facility] Surgery [address] [place] [address] [place] [address] Jhonatan Cole MD Irritation of right ulnar nerve (Primary Dx) 09/01/2024 10:30 AM PUBLIC WELFARE WORKER Office Visit [facility] Surgery [address] [place] [address] [place] [address] Jhonatan Cole MD Cubital tunnel syndrome on right (Primary Dx) 09/01/2024 Transcribe Orders [facility] Surgery [address] [place] [address] [place] [address] Jhonatan Cole MD Cubital tunnel syndrome on right (Primary Dx) from Last 3 Months Immunizations Name Administration Dates Next Due Influenza, Quadrivalent, Lilly l Culture-based MDCK, Preservative Free, Antibiotic Free, Intramuscular 08/13/2022 Influenza, Quadrivalent, Spl it, Preservative Free, Intramuscular 08/31/2021,09/13/2020 Influenza, Unspecified 10/01/2013,08/20/2012, Pfizer SARS-CoV-2 Monovalent Vaccination (12+ Yrs) JEFFERS-READY TO USE 01/25/2022 Pfizer SARS-CoV-2 Monovalent Vaccination (12+ Yrs) PURPLE 08/31/2021,11/09/2020 Pfizer Sars-Cov-2 Bivalent V accination (12+ YRS) 08/13/2022 Pneumococcal Polysaccharide PPV23 12/07/2020 Surgical History Surgery Date Site/Laterality Comments ROTATOR CUFF REPAIR 02/21/2022 Left TOTAL HIP ARTHROPLASTY 08/20/2023 - 09/18/2023 Left CARPAL TUNNEL RELEASE 10/20/2022 - 10/19/2023 Right SHOULDER SURGERY 10/20/2006 - 10/19/2007 Right x2 KNEE SURGERY Right 1984 and 1988 WRIST SURGERY 10/20/2004 - 10/19/2005 Left SINUS SURGERY 2002 and 2003 CARPAL TUNNEL RELEASE 12/19/2023 - 01/18/2024 Right revision, guyons canal release COLONOSCOPY 10/20/2013 - 10/19/2014 Medical History Medical History Date Comments Sleep apnea uses cpap deonte e Chronic bronchitis (HCC) Family History Medical History Relation Name Comments Stroke Mother 80 Anesthesia problems Neg Hx Relation Name Status Comments Mother Social History Tobacco Use Types Packs/Day Years Used Date Smoking Tobacco: Former Cigarettes 3 4 1 7 - 1990 Passive Smoke Exposure: Never Smokeless Tobacco: Never Tobacco Cessation:Counseling Given: Not Answered AUDIT-C Answer Date Recorded Q1: How often do you have a drink containing alcohol? Never 05/06/2024 Q2: How many drinks containi ng alcohol do you have on a typical day when you are drinking? Patient does not drink Q3: How often do you have si x or more drinks on one occasion? Never 05/06/2024 Personal Safety Answer Date Recorded Have you ever been in or are you currently in a harmful physical or emotional relationship or is someone making you feel afraid or unsafe? Denies 05/06/2024 Sex and Gender Information Value Date Recorded Sex Assigned at Not on file Legal Sex Male 9:09 PM PUBLIC WELFARE WORKER Gender Identity Not on file Sexual Orientation Not on file Obstetrics History Last Filed Vital Signs Vital Sign Reading Time Taken Comments Blood Pressure 126/84 05/06/2024 10:30 AM CDT Pulse 72 05/06/2024 10:30 AM CDT Temperature 37.2 ??C (99 ??F) 05/06/2024 9:55 AM CDT Respiratory Rate 11 05/06/2024 10:30 AM CDT Oxygen Saturation 97% 05/06/2024 10:30 AM CDT Inhaled Oxygen Concentration - - Weight 68 kg (150 lb) 04/29/2024 9:15 AM CDT Height 175.3 cm (5' 9 ) 04/29/2024 9:15 AM CDT Body Mass Index 22.15 04/29/2024 9:15 AM CDT Plan of Treatment Health Maintenance Due Date Last Done Comments Colon Cancer Screening-Colonoscopy 1966 Depression Screening 1966 Hepatitis C Screening 1966 Prostate Cancer Screening-PSA 1966 DTaP/Tdap/Td Vaccine (1 - Tdap) 1977 Hepatitis B Screening 1984 Regular Well Visit/Exam 18-64 1984 Zoster Vaccine (1 of 2) 1985 Pneumococcal vaccine <65 (2 of 2 - PCV) 12/07/2021 12/07/2020 Covid-19 Vaccine (5 - 2023-2 5 season) 2024 08/13/2022, 01/25/2022, 08/31/2021, Additional history exists Influenza Vaccine (#1) 2024 , 08/31/2021, 09/13/2020, Additional history exists Procedures Procedure Name Priority Date/Time Associated Diagnosis Comments EMG/NCV Routine 11/04/2024 1:23 PM PUBLIC WELFARE WORKER Cubital tunnel syndrome on right from Last 3 Months Results * EMG/NCV (11/04/2024 1:23 PM PUBLIC WELFARE WORKER) Anatomical Region Laterality Modality Other Narrative 11/04/2024 1:23 PM PUBLIC WELFARE WORKER Isak Friend MD PhD ? 11/05/2024 ??8:48 PM EMG/NCV - Date/Time: 11/04/2024 1:23 PM Performed by: Isak Friend MD PhD Authorized by: Amanda Onofre MD ?? us Amanda Onofre MD NEUROLOGY ORDERABLES Final Result from Last 3 [place] [address] [facility] [place] [address] [facility] CHO[facility] PLUS Care Teams Skein Winding Operator Relationship Specialty Start Date End Date Álvaro Molina MD [address] [facility] [address] [place] [address] PCP - General Internal Medicine 08/12/23
--- OUTSIDE RECORDS SUMMARY | 2024-11-16 00:30 | XMS_ITS | Referral Summary ---
Author Organization [facility] Address [address] [place] [address] Care Team Providers Care Solution Coordinator Name Role Phone Álvaro Molina DO Primary Care Provider Source Comments [facility],non-owned Affiliates and Associated Physician Practices is amultiple site organization consisting of ambulatory clinics and hospital sitesin [place], [place], [place] and [place]. This disclosure is being madepursuant to the Care Everywhere program and may not contain all information available regarding this patient. Last updated 18.[facility] Allergies No known active allergies Medications * Be aware that medications may not be up to date on this document. Alwaysverify current medications with the patient. Medication Sig Dispensed Refills Start Date End Date Status PROAIR HFA 108 (90 Base) MCG/ACT inhaler Inhale 2 (two) puffs by mouth as directed 05/12/2021 Active anastrozole (ARIMIDEX) 1 MG tablet Take 1 (one) tablet by mouth once daily 05/12/2021 Active azelastine (ASTELIN) 0.1 % nasal spray Taylor 1 (one) spray into each nostril as directed 05/21/2021 Active felodipine CR 24hr (PLENDIL) 10 MG tablet Take 1 (one) tablet by mouth as directed 05/18/2021 Active fluticasone propionate (FLONASE) 50 MCG/ACT nasal spray Taylor 1 (one) spray into each nostril 2 times daily 05/21/2021 Active montelukast (SINGULAIR) 10 MG tablet Take 1 (one) tablet by mouth once daily 04/02/2021 Active sildenafil (VIAGRA) 100 MG tablet Take 1 (one) tablet by mouth once daily as needed 05/09/2021 Active B-D 3CC LUER-DARWIN SYR 67FK0-0/2 21G X 1-/2 3 ML MISC as directed 10/08/2020 Active traZODone (DESYREL) 100 MG tablet Take 1 (one) tablet by mouth as directed 05/21/2021 Active EPINEPHrine (EPIPEN) 0.3 MG/0.3ML auto-injector pen Inject 0.3 mg into muscle once as needed for Anaphylaxis 06/28/2021 Active celecoxib (CELEBREX) 200 MG capsuleIndications:L eft hip impingement syndrome,Primary osteoarthritis of left hip Take 1 (one) capsule by mouth 2 times daily 60 capsule 2 07/30/2021 Active testosterone cypionate (DEPO-TESTOSTERONE) 200 MG/ML injection Inject 1 mL into muscle as directed 09/19/2021 Active traMADol (ULTRAM) 50 MG tablet Take 1 (one) tablet by mouth every 6 hours as needed for Pain 09/11/2021 Active acetaminophen (TYLENOL) 325 MG tablet Take 1 (one) tablet to 2 (two) tablets by mouth every 6 hours as needed for Fever or Pain Maximum allowable Acetaminophen amount = 4 Grams (4000 mg) / 24 hours. Active Cetirizine HCl (ZYRTEC ALLERGY PO) Take 1 tablet by mouth once daily as needed Active ibuprofen (Motrin) 800 MG tablet Take 1 (one) tablet by mouth every 6 hours as needed 09/25/2022 Active Active Problems Problem Noted Date Diagnosed [...] Resolved Date Cough 02/19/2023 02/19/2023 03/19/2023 Immunizations Name Administration Dates Next Due Doochoo primary monoval ent 12+ yr 0.3mL Purple cap 11/09/2020 INFLUENZA VACCINE 10/01/2013,08/20/2012,07/18/20 09 INFLUENZA VACCINE, QUADR. (F LUZONE; FLULAVAL; FLUARIX; AFLURIA QUADRIVALENT; 6MO+), 0.5 ML (IIV4) 09/13/2020 PNEUMOCOCCAL PPSV23 12/07/2020 Social History Tobacco Use Types Packs/Day Years [...] Mass Index 24.37 02/21/2022 8:09 AM CDT Plan of Treatment Not on file Medical Devices Implanted Type Area Grain Drier Device Identifier Shelf Expiration Date Model / Serial / Lot [place] Sut Healix Adv 5.5mm Bcmps Slf Implanted:Qty: 2 on 02/21/2022 by Ned Wolfe MD at [facility] Left: Shoulder [employer] 08/19/2024 [id number] / / [id number] Care Teams Solution Coordinator Relationship Specialty Start Date End Date Álvaro Molina DO [address] [facility] [address] [place], [place] [id number] PCP - General 02/15/22
--- OUTSIDE RECORDS SUMMARY | 2024-11-16 00:30 | XMS_ITS | Clinical Summary ---
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 Gender Identity Not on file Sexual Orientation Not on file Plan of Treatment Health Maintenance Due Date Last Done Comments Hepatitis C Virus (HCV) Screening 1966 TdaP Immunization 1966 Hepatitis B Immunization (1 of 3 - 19+ 3-dose series) 1985 Colonoscopy 2011 Colorectal Cancer Screening 2011 Cologuard 2016 Immunochemical Fecal Occult Blood 2016 Pneumococcal Immunization (5 0+ years) (1 of 1 - PCV) 2016 Zoster Immunization (1 of 2) 2016 PSA Discussion 2021 Influenza Immunization (#1) 2024 SARS-COV-2 Immunization ( - 2023-25 season) 2024 Respiratory Syncytial Virus (RSV) Immunization (Adult) (1 - 1-dose 75+ series) 2041 Meningococcal Immunization (ACWY) Aged Out No longer eligible based on patient's age to complete this topic Pneumococcal Immunization Combined Aged Out No longer eligible based on patient's age to complete this topic Rotavirus Immunization Aged Out No lo nger eligible based on patient's age to complete this topic
--- OUTSIDE RECORDS SUMMARY | 2024-11-16 00:30 | XMS_ITS | Referral Summary ---
Author Organization [facility] Address [address] [place] [address] Care Team Providers Care Material Coordinator Name Role Phone Álvaro Molina MD Primary Care Provider [phone] Encounters Date Type Department Care Team Description 11/12/2024 10:15 AM FINGERPRINTER Telemedicine [facility] Surgery [address] [facility] 6th [place] [address] Jhonatan Cole MD Cubital tunnel syndrome on right (Primary Dx) 11/11/2024 12:00 PM FINGERPRINTER Office Visit [facility] Surgery [address] [place] [address] 6th [place] [address] Amanda Onofre MD Cubital tunnel syndrome on right (Primary Dx) 11/04/2024 10:00 AM FINGERPRINTER Procedure visit [facility] Neurological Testing [address] [facility] 6th [place] [address] Cubital tunnel syndrome on right 11/04/2024 1:30 PM FINGERPRINTER Office Visit [facility] Neurological Testing [address] [facility] 6th [place] [address] Right arm pain [M79.601] (Primary Dx) 11/03/2024 Telephone [facility] Surgery [facility] 6th [place] [address] Aidee Betancourt 11/01/2024 Orders Only [facility] Surgery [address] [place] [address] 6th [place] [address] Amanda Onofre MD Cubital tunnel syndrome on right (Primary Dx) 10/27/2024 10:30 AM FINGERPRINTER Office Visit [facility] Surgery [address] [place] [address] 6th [place] [address] Jhonatan Cole MD Irritation of right ulnar nerve (Primary Dx) 09/14/2024 Orders Only [facility] Surgery [address] [place] [address] [place] [address] Jhonatan Cole MD Irritation of right ulnar nerve (Primary Dx) 09/01/2024 Transcribe Orders [facility] Surgery [address] [place] [address] [place] [address] Jhonatan Cole MD Cubital tunnel syndrome on right (Primary Dx) 09/01/2024 10:30 AM FINGERPRINTER Office Visit [facility] Surgery [address] [place] [address] [place] [address] Jhonatan Cole MD Cubital tunnel syndrome on right (Primary Dx) from Last 3 Months Allergies No known active allergies Medications traZODone [...] each nostril as needed for allergies 05/21/20 Active felodipine (PLENDIL) 10 mg 24 hr tabletIndications: hypertension Take 1 tablet (10 mg total) by mouth daily with lunch 05/18/20 21 Active EPINEPHrine 0.3 mg/0.3 mL auto-injection syringe Inject 0.3 mL (0.3 mg total) into the muscle as instructed daily as needed for anaphylaxis Gets allergy shots monthly 06/28/20 21 Active cetirizine (ZyrTEC) 10 mg tabletIndications: Allergic [...] as needed for pain 60 tablet 12/19/19 24 Active Additional Information Patient not taking.Informant: Self, [...] 02/25/2024 Carpal tunnel syndrome on right 10/22/2023 Immunizations Name Administration Dates Next Due Influenza, Quadrivalent, Lilly l Culture-based MDCK, Preservative Free, Antibiotic Free, Intramuscular 08/13/2022 Influenza, Quadrivalent, Spl it, Preservative Free, Intramuscular 08/31/2021,09/13/2020 Influenza, Unspecified 10/01/2013,08/20/2012, Pfizer SARS-CoV-2 Monovalent Vaccination (12+ Yrs) JEFFERS-READY TO USE 01/25/2022 Pfizer SARS-CoV-2 Monovalent Vaccination (12+ Yrs) PURPLE 08/31/2021,11/09/2020 Pfizer Sars-Cov-2 Bivalent V accination (12+ YRS) 08/13/2022 Pneumococcal Polysaccharide PPV23 12/07/2020 Social History Tobacco Use Types Packs/Day Years Used Date Smoking Tobacco: Former Cigarettes 3 4 1 987 - 1991 Passive Smoke Exposure: Never Smokeless Tobacco: Never [...] on file 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 11/05/2024 ??8:48 PM EMG/NCV - Date/Time: 11/04/2024 1:23 PM Performed by: Isak Friend MD PhD Authorized by: Amanda Onofre MD ?? Amanda Onofre MD NEUROLOGY ORDERABLES Final Result from Last 3 Months Insurance [facility] CHOICE PLUS [facility] CHOICE PLUS Care Teams Material Coordinator Relationship Specialty Start Date End Date Álvaro Molina MD [address] [place] [address] PCP - General Internal Medicine 08/12/23
--- OUTSIDE RECORDS SUMMARY | 2024-11-16 00:30 | XMS_ITS | CONTINUITY OF CARE DOCUMENT ---
Author Name edis randhawa Address Unknown Organization [facility] Address [address] [place] [address] [address] [place] [address] Phone [phone] Care Team Providers Care Advertising Photographer Name Role Phone Fermin GONZALEZ, James Unavailable [phone] James Christensen MD Unavailable [phone] INSURANCE PROVIDERS Payer name Policy type / Coverage type [place] red alliance party ID [facility] [id number] Other [id number]
--- OUTSIDE RECORDS SUMMARY | 2024-11-16 00:30 | XMS_ITS | Continuity of Care Document ---
Author Name [facility] Organization [facility] Care Team Providers Care Electric Switch Repairer Name Role Phone [facility] Unavailable Unavailable Problems Combined list of problems from [facility] and [facility] facilities. It does not include entries that were removed or entered in error. Problem Status Onset Date Problem Type Date of Resolution Comments Source Hearing Loss, Bilateral * (ICD-9-CM 389.9) Active Condition [facility] Lumbago * (ICD-9-CM 724.2) Active Condition [facility] Sinusitis * (ICD-9-CM 473.9) Active Condition [facility] Tinnitus * (ICD-9-CM 388.30) Active Condition [facility] Allergies, Adverse Reactions, Alerts Combined list of allergies from [facility] facilities. It does not include entries that were removed or entered in error. Substance Category Reaction Severity Reaction type Status Date Reported Comments Source No Known Allergies Drug allergy (disorder) active 05/08/2012 [facility] URIOSTEGUI ([facility]) Immunizations Combined list of available immunizations from the [facility] and [facility] facilities. Immunization Series Date Given Administered By Site Reaction Lot Number CVX Code Drug Acid Tender Status Comments Source INFLUENZA, INJECTABLE, QUADRIVALENT, PRESERVATIVE FREE 2019 150 complet ed [facility] INFLUENZA, UNSPECIFIED FORMULATION 2012 88 complet ed [facility] INFLUENZA, UNSPECIFIED FORMULATION 2011 88 complet ed [facility] INFLUENZA, UNSPECIFIED FORMULATION 2008 88 complet ed [facility] Encounters Combined list of: 1) Encounters from [facility] facilities going back up to thelast 18 months. 2) Encounters from the [facility] facilities going back up to 280 months. Location Location Details Encounter Type Encounter Number Reason For Visit Attending Provider ADM Date DC Date Status Disposition Source [facility] Outpatient Encounter [id number] 03/20 [facility] Outpatient Encounter [id number] 05/03 [facility] Social History Combined list of available smoking, tobacco, and other social history from [facility] facilities. Social History Type Response Date Comment [facility] e Tobacco smoking status NHIS CURRENT NON-TOBACCO USER-HX OF USE 03/19/2006 [facility] History of tobacco use TOBACCO TERMINATION STAGE 03/19/2006 [facility] This section is an empty social history section. DoD
--- OUTSIDE RECORDS SUMMARY | 2024-11-16 00:30 | XMS_ITS | Clinical Summary ---
Author Organization [facility] [employer] Address [address] [place] [address] Care Team Providers Care Acetone Recovery Worker Name Role Phone Álvaro Molina DO Primary Care Provider Source Comments [facility],non-owned Affiliates and Associated Physician Practices is amultiple site organization consisting of ambulatory clinics and hospital sitesin [place], [place], [place] and [place]. This disclosure is being madepursuant to the Care Everywhere program and may not contain all information available regarding this patient. Last updated 18.[facility] Allergies No known active allergies Medications * [...] Active azelastine (ASTELIN) 0.1 % nasal spray [place] 1 (one) spray into each nostril as directed 05/21/2021 Active felodipine CR 24hr (PLENDIL) 10 MG tablet Take 1 (one) tablet by mouth as directed 05/18/2021 Active fluticasone propionate (FLONASE) 50 MCG/ACT nasal spray [place] 1 (one) spray into each nostril 2 times daily 05/21/2021 Active montelukast (SINGULAIR) 10 MG tablet Take 1 (one) tablet by mouth once daily 04/02/2021 Active sildenafil (VIAGRA) 100 MG tablet Take 1 (one) tablet by mouth once daily as needed 05/09/2021 Active B-D 3CC LUER-DARWIN SYR 16OO8-2/2 21G X 1-/2 3 ML MISC as [...] 03/19/2023 Immunizations Name Administration Dates Next Due Manohar SplashMaps primary monoval ent 12+ yr 0.3mL Purple [...] 02/21/2022 8:09 AM CDT Plan of Treatment Health Maintenance Due Date Last Done Comments COLOGUARD (AGES 45-75) - COLON CA SCREENING 1966 COLON MONITORING 1966 COLONOSCOPY - COLON CA SCREENING 1966 CT COLONOGRAPHY - COLON CA SCREENING 1966 Colorectal Cancer Screening 1966 FIT - COLON CA SCREENING 1966 FLEX SIG - COLON CA SCREENING 1966 LIPID TESTING 1966 HIV SCREENING 1981 HEPATITIS C SCREENING 11/16/1984 DTAP/TDAP/TD VACCINES (1 - Tdap) 1985 HEPATITIS B VACCINE (1 of 3 - 19+ 3-dose series) 1985 ZOSTER VACCINE (1 of 2) 2016 PNEUMOCOCCAL VACCINE 50+ (2 of 2 - PCV) 12/07/2021 12/07/2020 COVID-19 VACCINE (5 - season) 2024 08/13/2022, 01/25/2022, 08/31/2021, Additional history exists INFLUENZA VACCINE (#1) 2024 , 08/31/2021, 09/13/2020, Additional history exists DEPRESSION SCREENING 10/20/2024 PNEUMOCOCCAL VACCINE Aged Out 12/07/2020 No long er eligible based on patient's age to complete this topic HIB VACCINE Aged Out No longer eligi ble based on patient's age to complete this topic HPV VACCINE Aged Out No longer eligi ble based on patient's age to complete this topic MENINGOCOCCAL (Group B) VACCINE Aged Out No longer eligible based on patient's age to complete this topic MENINGOCOCCAL VACCINE Aged Out No mario alberto lisa eligible based on patient's age to complete this topic Medical Devices Implanted Type Area Wallpaper Cleaner Device Identifier Shelf Expiration Date Model / Serial / Lot [place] Sut Healix Adv 5.5mm Bcmps Slf Implanted:Qty: 2 on 02/21/2022 by Ned Wolfe MD at [facility] Left: Shoulder [employer] 08/19/2024 [id number] / / [id number] Care Teams Acetone Recovery Worker Relationship Specialty Start Date End Date Álvaro Molina DO [address] [place] [address] PCP - General 02/15/22
[2024-11-16] MEDS: ACETAMINOPHEN 500 MG TABLET 1000 MG PO (06:40)
[2024-11-16] MEDS: VANCOMYCIN 1,250 MG/NS 250 ML BAG 166.67 MG IVPB (06:50)
[2024-11-16] MEDS: LACTATED RINGERS 1,000 ML 30 ML IV CONT ×2 (06:50→11:40)
[2024-11-16] MEDS: TRANEXAMIC ACID 1,000MG/ISO100 1,000 MG/100 ML BAG 200 MG IVPB (06:55)
--- NOTE | 2024-11-16 07:03 | WPDHPUPDATE1 ---
History and Physical Update Update Date/Time: 11/16/24 07:03 History and Physical has been reviewed, including an updated exam of the patient. There are NO changes in the patient's condition. Risks, benefits, and alternatives have been discussed and questions answered. Patient agrees to proceed with procedure.
[2024-11-16] MEDS: ceFAZolin 2 GM/D5W 50 ML 2 GM/50 ML BAG IVPB ×3 (07:36→23:00)
[2024-11-16] MEDS: ceFAZolin SODIUM 1 GM VIAL 3 GM (08:39)
[2024-11-16] MEDS: SODIUM CHLORIDE 0.9% IV 37.7 ML, MORPHINE SULFATE INJ (*CRX) 2 MG, ROPivacaine HCL 1% 2... INFILTRATE (08:39)
[2024-11-16] MEDS: ceFAZolin SODIUM 1 GM VIAL 2 GM IV PUSH (10:57)
[2024-11-16] MEDS: KETOROLAC 15 MG/ML VIAL (*BKC) IV PUSH (10:59)
[2024-11-16] MEDS: TRANEXAMIC ACID 1,000 MG/10 ML AMPUL 1000 MG IV PUSH (10:59)
--- NOTE | 2024-11-16 11:24 | P.OP_ITS ---
Procedure Note - Detailed Date of Procedure 11/16/24 Pre-op Diagnosis O A Rght Hip Post-op Diagnosis Same Procedure Performed Direct anterior approach right total hip arthroplasty Surgeon Anmol Laws MD Rn Surgery Brown Anesthesia General Description of Procedure Patient was brought to the operating room and general anesthesia was administered per to see 2 g of Ancef weight based vancomycin 1 g of TXA preoperatively. The right foot was padded the boots applied to both feet SCDs applied and running during the procedure. He was transferred to the [facility] table the right hip prepped draped usual fashion. A 10 cm longitudinal incision was made starting 3 cm lateral to the ASIS. Dissection was carried down to the fascia over the tensor fascia elizabeth which was longitudinally incised. This was elevated off the anterior 50% of the TFL muscle. Interval between TFL and rectus femoris developed an crossing vessels from branches of ascending lateral femoral circumflex vessels were isolated and ligated with suture divided. Retractor was placed anterior to the capsule. The hip abducted externally rotated and the gluteus minimus elevated off the lateral capsule. Inverted T capsulotomy was performed. Femoral neck osteotomy was performed. Femoral head was removed. It measured 47 mm diameter. Acetabulum was exposed labrum excised. The femur was externally rotated and extended and the remaining lateral capsule attachments the femur were released. The conjoined tendon was not released. With the leg back in the horizontal position the acetabulum was exposed. Under fluoroscopic guidance the acetabulum was prepared medialized with a 44 Reamer and reaming up to 48 mm which gave peripheral reaming at the equator both anteriorly and posteriorly with reaming to the medial wall of the acetabulum. Therefore his acetabulum was somewhat shallow. The 48 trial was a ppropriate therefore the 48 emphasis cup was chosen. This was fully seated at 40? of abduction and anteversion such that the anterior rim was flush with the anterior rim of the acetabulum the posterior rim about 4 mm proud posterior rim of the acetabulum. Excellent Press-Fit was the achieved. A single screw was placed in the ilium. Thirty-six inner diameter liner was placed without difficulty. The leg was externally rotated and extended and we broached up to a size 7. This gave torsional stability. A on trialing we could see that we were a long on the femoral neck cut and the broach was countersunk an additional 5 mm. We trialed with the +5 head standard neck tension was little bit tight and we could see an intraoperative fluoro x-ray the knee were still a few mm longer than the other side. The broach was countersunk additional 3.5 mm and on read trialing we had equal leg lengths and appropriate soft tissue tension and stability. Calcar planing was complete and we impacted the size 7 Actis standard offset stem which seated fully resting on the calcar. The read trialing with a 5 showed appropriate stability and the 5 ceramic head was impacted on the clean and dried trunnion after thorough irrigation of the wound with antibiotic solution. Hip was reduced stability reconfirmed and the more fluoroscopy showed appropriate radiographic appearance. The superior limb of the capsulotomy was approximated with 2. Vicryl suture. Local anesthetic cocktail was injected in the periarticular soft tissues. Additional 2 g of Ancef and 1 g TXA were administered. The fascia was closed with running 1. Vicryl drain deep in the subcu skin closed with 2 subcutaneous Vicryl and glue. EBL was 650 cc and the Cell Saver machine gave 250 cc for transfusion. This was administered. He was transferred postop recovery room in good condition. [facility] Billing Surgery - Charge Forward: Surgery Billing (Right total hip replacement)
--- NOTE | 2024-11-16 11:47 | PM.OP ---
Procedure Note - Brief Procedure Note - Brief Date of procedure: 11/16/24 O A ht Hip Procedure performed: Right anterior total hip arthroplasty Surgeon: DONNIE Fenton Findings: 58-year-old male underwent right anterior total hip arthroplasty on 11/16. I was involved in the procedure including positioning the patient on the OR table and 1st assisting through the time surgery. Total time spent was 3-1/2 hours
[2024-11-16] MEDS: fentaNYL CITRATE INJ (*CRX) 100 MCG/2 ML VIAL 25 MCG IV PUSH ×2 (12:07→12:18)
[2024-11-16] MEDS: VANCOMYCIN 1,000 MG/NS 250 ML 1,000 MG/250 ML BAG 250 MG IVPB (18:08)
--- NOTE | 2024-11-16 18:19 | ADMGEN ---
This patient, Cate Carrington, was admitted to [address] [place] [address] Room 300-01 at 1600. Patient/family oriented to hospital policies and general routines including ID bracelet, bed and alarms, visiting hours, pain management, procedures, bathroom and other care routines, personal items, smoking policy, room service/diet, and visiting hours. Information on how to activate the Rapid Response Team has been discussed. Patient/Family are encouraged to report perceived risks to care and to ask questions if they do not understand what they are told or what they should do.
[2024-11-16] MEDS: FAMOTIDINE 20 MG TABLET PO (21:01)
[2024-11-17 03:41] VITALS: BP 126/73; PULSE 64; RESP 16; TEMP 36.8; O2SAT 100
[2024-11-17] MEDS: VANCOMYCIN 1,000 MG/NS 250 ML 1,000 MG/250 ML BAG 250 MG IVPB (05:51)
[2024-11-17] MEDS: DOXYCYCLINE HYCLATE 100 MG TABLET PO (05:51)
[2024-11-17 06:43] LABS: Basophils Percent Auto 0.3 % (0.2-1.2); Hematocrit 37.4 % (42.0-52.0); Hemoglobin 11.6 g/dL (14.0-18.0); Immature Granulocyte Absolute 0.01 K/mm3 (0.00-0.031); Immature Granulocyte Percent A 0.1 % (0-0.5); Lymphocytes Absolute Auto 1.12 K/mm3 (0.9-3.2); Lymphocytes Percent Auto 15.9 % (18.3-44.2); Mean Corpuscular Hemoglobin 29.1 pg (26-34); Mean Platelet Volume 10.8 fl (7.4-10.4); Monocytes Absolute Auto 0.7 K/mm3 (0.1-0.6); Monocytes Percent Auto 10.1 % (2.6-8.5); Neutrophils Absolute Auto 5.2 K/mm3 (1.3-6.7); Neutrophils Percent Auto 73.6 % (45.5-73.1); Platelet Count Result 150 k/mm3 (150-375); Red Blood Count 3.98 M/mm3 (4.6-6.20)
[2024-11-17] MEDS: ceFAZolin 2 GM/D5W 50 ML 2 GM/50 ML BAG IVPB (06:56)
[2024-11-17 07:04] LABS: Alanine Aminotransferase 18 U/L (6-50); Albumin Level 3.6 g/dL (3.5-5.1); Alkaline Phosphatase 48 U/L (38-126); Anion Gap 6 mmol/L (4-12); Aspartate Amino Transferase 35 U/L (17-59); Bilirubin,Total 0.6 mg/dL (0.2-1.3); Blood Urea Nitrogen 13 mg/dL (9-20); Calcium 8.8 mg/dL (8.4-10.2); Carbon Dioxide 32 mmol/L (22-30); Chloride 101 mmol/L (98-107); Estimated CRCL calculation 74 ml/min; Estimated Glomerular Filt Rate > 60; Glucose 95 mg/dL (65-110); Potassium 3.9 mmol/L (3.4-5.0); Sodium 139 mmol/L (137-145)
--- NOTE | 2024-11-17 07:04 | P.PNOP_ITS ---
Subjective Subjective Date/Time Seen: 11/17/24 07:04 Interval history: Postop day 1 patient is alert. He is afebrile vital signs are stable. He has been having minimal pain. He has refuse Tylenol as well as narcotics. Prefers not to take does not feel he needs them. Drain is out. Dressing is dry intact. Patient has been up to the restroom multiple times overnight is comfortable. He did get up to the floor late yesterday afternoon therapy see him. They will see him this morning. Patient's morning CBC is noted. His CMP is still pending. Neurovascularly he is intact. Overall patient is doing well. He will work with therapy this morning and once IV antibiotics have been completed will be discharged home late this morning. Objective Data Vital Signs Vital Signs: Vital Signs - 24 hr 11/16/24 07:10 11/16/24 11:40 11/16/24 11:55 Temperature 99.2 F 97.0 F L Pulse Rate 84 86 Respiratory Rate 16 16 Blood Pressure 97/58 L 103/71 Pulse Oximetry 100 100 Oxygen Delivery Simple Face Mask Simple Face Mask Oxygen Flow Rate 8 8 11/16/24 12:10 11/16/24 12:25 11/16/24 12:40 Temperature Pulse Rate 87 91 79 Respiratory Rate 16 23 H 13 Blood Pressure 110/71 116/71 117/71 Pulse Oximetry 100 100 100 Oxygen Delivery Simple Face Mask Room Air Room Air Oxygen Flow Rate 8 11/16/24 12:55 11/16/24 13:10 11/16/24 13:25 Temperature Pulse Rate 91 81 75 Respiratory Rate 16 18 12 Blood Pressure 120/72 120/71 103/90 Pulse Oximetry 100 100 93 Oxygen Delivery Room Air Room Air Room Air Oxygen Flow Rate 11/16/24 13:40 11/16/24 13:55 11/16/24 14:10 Temperature Pulse Rate 77 67 88 Respiratory Rate 14 11 L 19 Blood Pressure 121/64 122/76 118/79 Pulse Oximetry 100 100 100 Oxygen Delivery Nasal Cannula Nasal Cannula Nasal Cannula Oxygen Flow Rate 2 2 2 11/16/24 14:24 11/16/24 14:40 11/16/24 14:55 Temperature Pulse Rate 56 L 79 63 Respiratory Rate 14 14 23 H Blood Pressure 119/71 130/79 113/73 Pulse Oximetry 100 100 100 Oxygen Delivery Nasal Cannula Nasal Cannula Nasal Cannula Oxygen Flow Rate 2 2 2 01/28/25 15:25 11/16/24 15:51 11/16/24 16:20 Temperature 98.2 F Pulse Rate 80 79 79 Respiratory Rate 21 H 15 18 Blood Pressure 115/77 125/75 129/73 Pulse Oximetry 100 100 99 Oxygen Delivery Nasal Cannula Nasal Cannula Oxygen Flow Rate 2 2 11/16/24 16:35 11/16/24 17:05 11/16/24 18:02 Temperature 98.3 F 98.3 F 98.5 F Pulse Rate 82 82 76 Respiratory Rate 18 18 18 Blood Pressure 129/79 129/79 123/65 Pulse Oximetry 98 98 100 Oxygen Delivery Oxygen Flow Rate 11/16/24 20:00 11/16/24 20:37 11/16/24 23:42 Temperature 97.4 F L 98.3 F Pulse Rate 77 66 Respiratory Rate 16 16 Blood Pressure 117/65 119/70 Pulse Oximetry 100 98 Oxygen Delivery Room Air Oxygen Flow Rate 11/17/24 03:41 Temperature 98.2 F Pulse Rate 64 Respiratory Rate 16 Blood Pressure 126/73 Pulse Oximetry 100 Oxygen Delivery Oxygen Flow Rate Intake/Output Intake/Output: Intake & Output 11/14/24 11/15/24 11/16/24 11/17/24 23:59 23:59 23:59 23:59 Intake Total 640 250 Output Total 450 Balance 640 -200 Meds/Results Medications: Active Medications Generic Name Dose Route Start Last Admin Trade Name Freq PRN Reason Stop Dose Admin Acetaminophen 650 mg 11/16/24 18:10 Acetaminophen 325 Mg Tablet PO Q4H PRN Pain Rated 5 or Less Albuterol 2 puff 11/16/24 15:59 Albuterol Sulfate (*Sp) Aerosol 1 Puff INHALATION Q4-6H PRN Shortness Of Breath Or Wheezing Apixaban 2.5 mg 11/17/24 09:00 Apixaban 2.5 Mg Tablet PO 12/21/24 21:01 Q12HR SONIYA Celecoxib 200 mg 11/17/24 09:00 Celecoxib 200 Mg Capsule PO DAILY SONIYA Doxycycline Hyclate 100 mg 11/17/24 06:00 11/17/24 05:51 Doxycycline Hyclate 100 Mg Tablet PO 100 mg Q12H SONIYA Administration Famotidine 20 mg 11/16/24 21:00 11/16/24 21:01 Famotidine 20 Mg Tablet PO 20 mg Q12HR SONIYA Administration Cefazolin Sodium 2 gm in 50 mls @ 100 mls/hr 11/16/24 15:00 11/17/24 06:56 Ancef 2 Gm/D5w 50 Ml IVPB 11/17/24 07:29 100 mls/hr Q8H SONIYA Administration Vancomycin HCl 1,000 mg in 250 mls @ 250 mls/hr 11/16/24 19:00 11/17/24 06:56 Vancomycin 1,000 Mg/Ns 250 Ml IVPB 11/17/24 07:59 Infused Q12H SONIYA Infusion Naloxone HCl 0.1 mg 11/16/24 15:59 Naloxone Hcl 0.4 Mg/Ml Vial IV PUSH Q2M PRN Opiate Reversal Ondansetron HCl 4 mg 11/16/24 15:59 Ondansetron Inj 4 Mg/2 Ml Vial IV PUSH Q4H PRN Nausea And Vomiting Radiology Results: ITS Impressions Intraoperative X-Ray 11/16/24 11:20 IMPRESSION: 1. Right total hip arthroplasty in near-anatomic alignment, negative for postoperative purposes. See procedure note for further detail. Hip/Pelvis X-Ray 11/16/24 12:52 IMPRESSION: 1. Right total hip arthroplasty, negative for postoperative purposes. Labs Labs: Laboratory Results - last 24 hr 11/16/24 11/17/24 06:22 05:40 WBC 7.0 RBC 3.98 L Hgb 11.6 L Hct 37.4 L MCV 94.0 MCH 29.1 MCHC 31.0 L RDW 13.0 Plt Count 150 MPV 10.8 H Immature Gran % (Auto) 0.1 Neut % (Auto) 73.6 H Lymph % (Auto) 15.9 L [place] % (Auto) 10.1 H Eos % (Auto) 0.0 Baso % (Auto) 0.3 Lymph # (Auto) 1.12 [place] # (Auto) 0.7 H Eos # (Auto) 0.0 Baso # (Auto) 0.0 Abs Immat Gran (auto) 0.01 Absolute Neuts (auto) 5.2 Absolute Nucleated RBC 0.000 Nucleated RBC % 0.0 Blood Type O Positive Antibody Screen Negative
[2024-11-17 07:56] VITALS: BP 125/82; PULSE 62; RESP 16; TEMP 36.3; O2SAT 100
[2024-11-17] MEDS: CELECOXIB 200 MG CAPSULE PO (08:31)
[2024-11-17] MEDS: APIXABAN 2.5 MG TABLET PO (08:31)
[2024-11-17] MEDS: FAMOTIDINE 20 MG TABLET PO (08:31)
== END 2024-11-17 12:15 | disposition home or self-care (01) ==
LOC: ANHSURGERY 06:04 → ANH3MEDSUR 16:12
PROVIDERS: Physician Assistant Surgical; PCP Internal Medicine; Visit Provider Orthopaedic Surgery
PROC: (CPT 27130; principal; 2024-11-16 07:30)
DX: M16.11 Unilateral primary osteoarthritis, right hip (principal); I10 Essential (primary) hypertension; G47.33 Obstructive sleep apnea (adult) (pediatric); G56.00 Carpal tunnel syndrome, unspecified upper limb; Z79.51 Long term (current) use of inhaled steroids; Z98.890 Other specified postprocedural states; Z87.891 Personal history of nicotine dependence; Z86.0100 Personal history of colon polyps, unspecified; Z80.1 Family history of malignant neoplasm of trachea, bronchus and lung; Z80.0 Family history of malignant neoplasm of digestive organs; Z82.49 Family history of ischemic heart disease and other diseases of the circulatory system
CPT/HCPCS: 27130; 36415; 73501; 80053; 85025; 86850; 86900; 86901; 97110; 97165; 99199; A9270; C1713; C1776; J0171; J0690; J1100; J1171; J1885; J2003; J2250; J2270; J2371; J2405; J2704; J2795; J3010; J3370; J7040; J7120

== ENCOUNTER 2025-03-19 07:35 | Outpatient (CLI) | payer OTHER, SELFPAY ==
--- NOTE | ~2025-03-19 | MR_ITS ---
MRI of the lumbar spine Clinical History: Back pain Technique: Axial T2-weighted images, and sagittal T1-weighted, T2-weighted, and T2 fat-sat images wer e acquired. Findings: No acute fracture seen. There is 5 mm anterolisthesis of L3 over L4. There are Modic reacti ve signal changes at the L3-L4 disc space due to underlying degenerative disc disease. At L1-L2, there is mild disc bulge and mild to moderate facet hypertrophy. No spinal canal stenosis o r neural foraminal narrowing. At L2-L3, there is mild diffuse disc bulge with mild to moderate facet arthropathy. There is mild trevor tral canal stenosis. Neural foramina are preserved. At L3-L4, there is severe degenerative disc narrowing. There is diffuse disc protrusion, especially a t the left paracentral region with severe facet arthropathy. There is severe spinal canal stenosis/th ecal sac compression. There is severe left neural foraminal narrowing. There is minimal right neural foraminal narrowing. At L4-L5, there is mild disc bulge with moderate facet arthropathy. No central canal stenosis. There is mild to moderate bilateral neural foraminal narrowing. At L5-S1, there is mild disc bulge with minimal central disc protrusion. There is severe facet arthro [place]. No central canal stenosis. There is moderate bilateral neural foraminal narrowing. Paravertebral soft tissues are unremarkable. Impression: Severe degenerative spondylosis at L3-L4 with associated 5 mm anterolisthesis at this level. Mild to moderate degenerative changes in the remainder of the lumbar spine, as detailed above. Reviewed, dictated and finalized at [facility]. Impression: Severe degenerative spondylosis at L3-L4 with associated 5 mm anterolisthesis a t this level. Mild to moderate degenerative changes in the remainder of the lumbar spine, as detailed above.
== END 2025-03-19 07:36 | disposition home or self-care (01) ==
LOC: MICIMG 07:35
PROVIDERS: PCP Internal Medicine; Visit Provider Orthopaedic Surgery
DX: M54.50 Low back pain, unspecified (principal); M47.816 Spondylosis without myelopathy or radiculopathy, lumbar region; M43.16 Spondylolisthesis, lumbar region
CPT/HCPCS: 72148